=== PATIENT | female | born 1945 | race Caucasian/White ===

== ENCOUNTER 2016-08-09 23:21 | Emergency (ER) | payer MEDICARE ==
[~2016-08-09] VITALS: Ht 172.7 cm; Wt 119.3 kg
[~2016-08-09 23:21] MED LIST: AMIODARONE HCL200 MG PO; ASPIR-LOX325 MG PO; ASPIRIN325 M2 PO; CARTIVISC TABL1 EACH PO; COREG; COREG25 MG PO; COUMADIN3 M1 PO; COZAAR100 MG PO; Coumadin5 MG PO; DAYPRO600 M1 PO; DILTIAZEM240 M1 PO; FUROSEMIDE20 M1 PO; KLOR-CON 1010 ME1 PO; LANTUS100 U/ML SC; MACROBID100 M1 PO; NORVASC; NORVASC5 MG PO; ONGLYZA5 MG PO; OYSTER CALCIUM1 TA3 PO; Oscal,Oyster S500 MG PO; PRILOSEC20 MG PO; PROPAFENONE HC150 MG PO; VITAMIN D2400 UNIT PO; VITAMIN D50000 I1 PO; VITAMIN D50000 I3 PO; WARFARIN2 MG PO
[2016-08-09] MEDS ORDERED: CARVEDILOL25 MG PO (23:28)
[2016-08-09 23:52] LABS: BASO % 0.2 % (0.0-1.0); EOS # 0.2 10*3/uL (0.0-0.4); EOS % 1.7 % (1.0-4.0); HEMATOCRIT 37.8 % (37.0-47.0); HEMOGLOBIN 12.2 g/dl (12.0-16.0); LYMPH # 2.5 10*3/uL (1.3-4.4); LYMPH % 25.4 % (27.0-41.0); MEAN CELL VOLUME 77.9 fl (81.0-99.0); MEAN CORPUSCULAR HGB 25.2 pg (27.0-31.0); MEAN CORPUSCULAR HGB CONC 32.3 g/dl (33.0-37.0); MONO # 0.7 10*3/uL (0.1-1.0); MONO % 7.2 % (3.0-9.0); NEUT # 6.5 10*3/uL (2.3-7.9); NEUT % 65.2 % (47.0-73.0); PLATELET COUNT AUTOMATED 293 10*3/uL (130-400); RED BLOOD COUNT 4.85 10*6/uL (4.10-5.10); RED CELL DISTRI WIDTH 17.2 % (0-14.5)
[2016-08-10 00:05] LABS: INTERNATIONAL NORM RATIO 1.1 (2.0-3.5); PROTHROMBIN TIME 11.8 SECONDS (9.0-12.4)
[2016-08-10 00:11] LABS: ALBUMIN 2.9 gm/dl (3.1-4.5); ALKALINE PHOSPHATASE 102 U/L (45-117); BILIRUBIN, TOTAL 0.3 mg/dl (0.2-1.0); BUN 12 mg/dl (7-24); CARBON DIOXIDE 26 mmol/L (21-32); CHLORIDE 105 mmol/L (98-107); CPK 39 U/L (26-192); EST GLOM FILT AFRICAN AMERICAN > 60 ml/min; GLUCOSE 289 mg/dL (65-99); POTASSIUM 3.9 mmol/L (3.5-5.1); SGOT/AST 29 IU/L (3-35); SGPT/ALT 34 U/L (12-78); SODIUM 141 mmol/L (136-145); TOTAL PROTEIN 7.5 gm/dL (6.4-8.2)
[2016-08-10 00:12] LABS: CKMB 0.7 ng/ml (0.5-3.6)
[2016-08-10 00:14] LABS: TROPONIN I < 0.015 ng/ml (<0.045)
[2016-08-10 01:54] LABS: BILIRUBIN NEGATIVE (NEGATIVE); BLOOD NEGATIVE (NEGATIVE); CLARITY CLEAR (CLEAR); COLOR YELLOW (YELLOW); GLUCOSE 3+ (NEGATIVE); KETONE NEGATIVE (NEGATIVE); LEUKO ESTERASE TRACE (NEGATIVE); NITRITE NEGATIVE (NEGATIVE); PH 5.5 (5.0-9.0); PROTEIN NEGATIVE (NEGATIVE); SPECIFIC GRAVITY 1.015 (1.005-1.030)
[2016-08-10 02:00] VITALS: BP 151/86
[2016-08-10 02:07] LABS: BACTERIA 1+; EPITHELIAL CELLS 20-25; URINE REFLEX COMMENT YES (NO)
[2016-08-10] MEDS ORDERED: CLINDAMYCIN HC300 MG PO (04:12)
[2016-08-10] MEDS ORDERED: INDOMETHACIN50 MG PO (04:14)
[2016-08-10] MEDS ORDERED: BACTRIM DS 8001 TA1 PO (04:14)
[2016-08-10] MEDS ORDERED: HYDROCODONE BIT1 T11 PO (04:29)
== END 2016-08-10 04:44 | disposition home or self-care (01) ==
LOC: ED 23:21
PROVIDERS: Emergency Medicine
DX: R07.89 Other chest pain (principal); N39.0 Urinary tract infection, site not specified; Z79.4 Long term (current) use of insulin; E11.9 Type 2 diabetes mellitus without complications; I10 Essential (primary) hypertension; I48.91 Unspecified atrial fibrillation; Z90.49 Acquired absence of other specified parts of digestive tract; Z79.01 Long term (current) use of anticoagulants; Z79.82 Long term (current) use of aspirin; Z88.0 Allergy status to penicillin; Z88.8 Allergy status to other drugs, medicaments and biological substances

== ENCOUNTER 2016-09-06 11:18 | Emergency (ER) | payer MEDICARE ==
[~2016-09-06] VITALS: Wt 114.8 kg
[~2016-09-06 11:18] MED LIST changes: +BACTRIM DS 8001 TA1 PO; +CARVEDILOL25 MG PO; +CLINDAMYCIN HC300 MG PO; +HYDROCODONE BIT1 T11 PO; +INDOMETHACIN50 MG PO
[2016-09-06 11:48] LABS: BASO % 0.1 % (0.0-1.0); EOS # 0.2 10*3/uL (0.0-0.4); EOS % 2.6 % (1.0-4.0); HEMATOCRIT 37.6 % (37.0-47.0); HEMOGLOBIN 12.2 g/dl (12.0-16.0); LYMPH # 1.9 10*3/uL (1.3-4.4); LYMPH % 21.4 % (27.0-41.0); MEAN CELL VOLUME 79.3 fl (81.0-99.0); MEAN CORPUSCULAR HGB 25.7 pg (27.0-31.0); MEAN CORPUSCULAR HGB CONC 32.4 g/dl (33.0-37.0); MEAN PLATELET VOLUME 11.7 fl (9.6-12.3); MONO # 0.5 10*3/uL (0.1-1.0); MONO % 5.9 % (3.0-9.0); NEUT # 6.3 10*3/uL (2.3-7.9); NEUT % 69.7 % (47.0-73.0); PLATELET COUNT AUTOMATED 277 10*3/uL (130-400); RED BLOOD COUNT 4.74 10*6/uL (4.10-5.10); RED CELL DISTRI WIDTH 16.4 % (0-14.5)
[2016-09-06 12:05] LABS: PROTHROMBIN TIME 95.7 SECONDS (9.0-12.4)
[2016-09-06 12:07] LABS: ALKALINE PHOSPHATASE 125 U/L (45-117); BILIRUBIN, TOTAL 0.2 mg/dl (0.2-1.0); BUN 10 mg/dl (7-24); CARBON DIOXIDE 27 mmol/L (21-32); CHLORIDE 107 mmol/L (98-107); EST GLOM FILT AFRICAN AMERICAN > 60 ml/min; GLUCOSE 244 mg/dL (65-99); POTASSIUM 3.8 mmol/L (3.5-5.1); SGOT/AST 29 IU/L (3-35); SGPT/ALT 29 U/L (12-78); SODIUM 143 mmol/L (136-145); TOTAL PROTEIN 7.3 gm/dL (6.4-8.2)
[2016-09-06 12:12] LABS: INTERNATIONAL NORM RATIO 7.9 (2.0-3.5)
[2016-09-06 12:39] VITALS: BP 147/79
== END 2016-09-06 12:57 | disposition home or self-care (01) ==
LOC: ED 11:18
PROVIDERS: Nurse Practitioner Family
DX: R79.1 Abnormal coagulation profile (principal); Z79.01 Long term (current) use of anticoagulants; Z79.4 Long term (current) use of insulin; Z79.82 Long term (current) use of aspirin; Z88.0 Allergy status to penicillin; Z88.8 Allergy status to other drugs, medicaments and biological substances; Z79.899 Other long term (current) drug therapy

== ENCOUNTER 2016-09-07 22:27 | Emergency (ER) | payer MEDICARE ==
[~2016-09-07] VITALS: Ht 172.7 cm; Wt 114.8 kg
[2016-09-07 22:51] LABS: BASO % 0.1 % (0.0-1.0); EOS # 0.2 10*3/uL (0.0-0.4); EOS % 1.9 % (1.0-4.0); HEMATOCRIT 40.6 % (37.0-47.0); HEMOGLOBIN 12.7 g/dl (12.0-16.0); LYMPH # 2.4 10*3/uL (1.3-4.4); LYMPH % 24.4 % (27.0-41.0); MEAN CELL VOLUME 80.4 fl (81.0-99.0); MEAN CORPUSCULAR HGB 25.1 pg (27.0-31.0); MEAN CORPUSCULAR HGB CONC 31.3 g/dl (33.0-37.0); MEAN PLATELET VOLUME 11.3 fl (9.6-12.3); MONO # 0.7 10*3/uL (0.1-1.0); MONO % 6.7 % (3.0-9.0); NEUT # 6.5 10*3/uL (2.3-7.9); NEUT % 66.6 % (47.0-73.0); PLATELET COUNT AUTOMATED 311 10*3/uL (130-400); RED BLOOD COUNT 5.05 10*6/uL (4.10-5.10); RED CELL DISTRI WIDTH 16.5 % (0-14.5); WHITE BLOOD COUNT 9.8 10*3/uL (4.8-10.8)
[2016-09-07 23:11] LABS: INTERNATIONAL NORM RATIO 3.5 (2.0-3.5); PROTHROMBIN TIME 39.8 SECONDS (9.0-12.4)
[2016-09-08 00:37] VITALS: BP 154/96
== END 2016-09-08 00:48 | disposition home or self-care (01) ==
LOC: ED 22:27
PROVIDERS: Emergency Medicine Emergency Medical Services
DX: R04.0 Epistaxis (principal); D68.8 Other specified coagulation defects; I48.91 Unspecified atrial fibrillation; E11.9 Type 2 diabetes mellitus without complications; I10 Essential (primary) hypertension; Z88.0 Allergy status to penicillin; Z88.6 Allergy status to analgesic agent; Z88.8 Allergy status to other drugs, medicaments and biological substances; Z79.82 Long term (current) use of aspirin; Z79.899 Other long term (current) drug therapy

== ENCOUNTER → 2016-10-22 | Outpatient (CLI) | payer MEDICARE | END | disposition home or self-care (01) | LOC: ORTHO 00:43 | DX: M17.12 Unilateral primary osteoarthritis, left knee (principal) ==

== ENCOUNTER → 2016-11-02 | Outpatient (CLI) | payer MEDICARE | END | disposition home or self-care (01) | LOC: CT 10:27 | DX: Z01.818 Encounter for other preprocedural examination (principal); M25.562 Pain in left knee; G89.29 Other chronic pain; M17.12 Unilateral primary osteoarthritis, left knee; M16.12 Unilateral primary osteoarthritis, left hip; Z96.652 Presence of left artificial knee joint ==

== ENCOUNTER → 2016-12-15 | Outpatient (CLI) | payer MEDICARE ==
[~2016-12-15] MED LIST changes: +CARTIA XT240 MG PO; +XARE20MG PO
== END | disposition home or self-care (01) ==
LOC: CANPRECLI → ORTHO 04:09 → LAB 04:09 → ORTHO 12:00
DX: Z01.810 Encounter for preprocedural cardiovascular examination (principal); I10 Essential (primary) hypertension; E11.9 Type 2 diabetes mellitus without complications; I48.91 Unspecified atrial fibrillation

== ENCOUNTER → 2016-12-20 | Outpatient (CLI) | payer MEDICARE ==
[2016-12-20 12:35] LABS: BASO % 0.3 % (0.0-1.0); EOS # 0.1 10*3/uL (0.0-0.4); EOS % 1.4 % (1.0-4.0); HEMATOCRIT 39.7 % (37.0-47.0); HEMOGLOBIN 12.6 g/dl (12.0-16.0); LYMPH # 2.2 10*3/uL (1.3-4.4); LYMPH % 28.7 % (27.0-41.0); MEAN CELL VOLUME 83.2 fl (81.0-99.0); MEAN CORPUSCULAR HGB 26.4 pg (27.0-31.0); MEAN CORPUSCULAR HGB CONC 31.7 g/dl (33.0-37.0); MEAN PLATELET VOLUME 12.3 fl (9.6-12.3); MONO # 0.5 10*3/uL (0.1-1.0); MONO % 6.8 % (3.0-9.0); NEUT # 4.8 10*3/uL (2.3-7.9); NEUT % 62.5 % (47.0-73.0); PLATELET COUNT AUTOMATED 258 10*3/uL (130-400); RED BLOOD COUNT 4.77 10*6/uL (4.10-5.10); RED CELL DISTRI WIDTH 15.6 % (0-14.5); WHITE BLOOD COUNT 7.7 10*3/uL (4.8-10.8)
[2016-12-20 13:04] LABS: ALBUMIN 3.2 gm/dl (3.1-4.5); ALKALINE PHOSPHATASE 106 U/L (45-117); BILIRUBIN, TOTAL 0.5 mg/dl (0.2-1.0); BUN 9 mg/dl (7-24); CARBON DIOXIDE 32 mmol/L (21-32); CHLORIDE 103 mmol/L (98-107); EST GLOM FILT AFRICAN AMERICAN > 60 ml/min; GLUCOSE 231 mg/dL (65-99); SGOT/AST 35 IU/L (3-35); SGPT/ALT 32 U/L (12-78); SODIUM 139 mmol/L (136-145); TOTAL PROTEIN 7.4 gm/dL (6.4-8.2)
[2016-12-20 13:22] LABS: BILIRUBIN NEGATIVE (NEGATIVE); BLOOD 3+ (NEGATIVE); CLARITY CLOUDY (CLEAR); COLOR YELLOW (YELLOW); GLUCOSE 1+ (NEGATIVE); KETONE NEGATIVE (NEGATIVE); LEUKO ESTERASE 2+ (NEGATIVE); NITRITE NEGATIVE (NEGATIVE); PH 5.5 (5.0-9.0); PROTEIN TRACE (NEGATIVE); SPECIFIC GRAVITY >= 1.030 (1.005-1.030)
[2016-12-20 13:31] LABS: HEMOGLOBIN A1c 9.6 % (4.8-5.6)
[2016-12-20 14:20] LABS: BACTERIA 4+; EPITHELIAL CELLS 25-35; RBC 21-30 rbc/hpf (0-2); WBC 51-100 wbc/hpf (0-5); YEAST 2+
== END | disposition home or self-care (01) ==
LOC: LAB 10:55
PROVIDERS: Orthopaedic Surgery
DX: M17.12 Unilateral primary osteoarthritis, left knee (principal); E11.9 Type 2 diabetes mellitus without complications; Z96.652 Presence of left artificial knee joint

== ENCOUNTER → 2016-12-31 | Outpatient (CLI) | payer MEDICARE | END | disposition home or self-care (01) | LOC: LAB 10:07 | DX: R30.0 Dysuria (principal) ==

== ENCOUNTER 2017-01-15 09:20 | Inpatient (IN) | payer MEDICARE ==
[~2017-01-15] VITALS: Ht 170.2 cm; Wt 116.2 kg
--- NOTE | ~2017-01-15 | EKG ---
[place], [place] ELECTROCARDIOGRAM REPORT NAME: JEREMIE TRUJILLO UNIT #: [id number] ROOM: [facility] DOCTOR: CLAUDINE LEDEZMA,LUZMA BIRTHDATE: [birth year] DOS: 01/15/2017 TIME: 9:29 a.m. FINDINGS: 1. Sinus rhythm. 2. First degree AV block. 3. right bundle branch block. 4. Low voltage in the precordial leads. LUZMA CHOW MD CM:EKGRPT:ELECTROCARDIOGRAM REPORT [id number] LUZMA CHOW MD
--- NOTE | ~2017-01-15 | PR ---
[place], [place] PROGRESS NOTE NAME: JEREMIE TRUJILLO UNIT #: [id number] ROOM: 407 DOCTOR: LUZMA CHOW MD BIRTHDATE: [birth year] DOS: 01/17/2017 REASON FOR VISIT: Syncope and chest pain. SUBJECTIVE: The patient had some chest pain this morning. She had had "spell" where she felt like dizzy and about to pass out, but there is no syncope. She denies any palpitations, nausea, vomiting, no headache. No tingling, numbness or weakness. No heart palpitations. Still has some left knee pain. REVIEW OF SYSTEMS: Review of the 8 systems negative except as mentioned above. RHYTHM STRIPS: The patient in sinus rhythm with no significant luz or tachyarrhythmias. As for blood pressures, current blood pressure 152/62, pulse 69 and respiration 18. The patient had mildly positive orthostasis, systolic pressure dropped from 162 to 140. PHYSICAL EXAMINATION: GENERAL: Alert, comfort, in no acute distress. The patient is slightly short of breath. She just returned from the restroom. HEENT: Pupils are round and equal. No jaundice. NECK: Supple, no distended neck veins, no carotid bruit. CHEST: Symmetrical, nontender. LUNGS: Few scattered rhonchi, but good air entry bilaterally. HEART: Regular rhythm, no S3, no palpable thrills. ABDOMEN: Obese, nontender. Bowel sounds normal. EXTREMITIES: Showed 1+ edema, left leg, left knee was in dressing. SKIN: Warm and dry. No cyanosis, no clubbing. NEUROLOGIC: The patient is alert, oriented. No focal neurologic deficit. RECTAL: Deferred. GENITOURINARY: Deferred. IMPRESSION: 1. Recurrent "near syncopal attacks." 2. Chest pain, atypical, so far cardiac enzymes are unremarkable. EKG showed no significant ischemic changes. 3. Mild positive orthostasis. 4. Hypertension. 5. Paroxysmal atrial fibrillation. 6. History of pulmonary emboli. 7. Recent left knee surgery. 8. Obesity. RECOMMENDATIONS: 1. Continue current medications. I would discontinue her Cardizem due to her mildly positive orthostasis with symptoms of "dizziness." As far as she has no significant luz or tachyarrhythmia so far, continue to monitor her heart rates on telemetry. 2. Consider checking her carotid Doppler studies and also outpatient event monitor to assess for any luz or tachyarrhythmia. [place], [place] PROGRESS NOTE NAME: JEREMIE TRUJILLO UNIT #: [id number] ROOM: [facility] DOCTOR: CLAUDINE LEDEZMA,LUZMA BIRTHDATE: [birth year] 3. Continue to monitor heart rate and blood pressures. 4. There is no family at bedside at the time of my examination. LUZMA CHOW MD CM:PNAMADOR 1245 1401 LUZMA CHOW MD 01/18/17 0106 interface
--- NOTE | ~2017-01-15 | CON ---
[place], [place] REPORT OF CONSULTATION NAME: JEREMIE TRUJILLO UNIT #: [id number] ROOM: 407 DOCTOR: LUZMA CHOW MD BIRTHDATE: [birth year] DOS: 01/16/2017 REASON FOR CONSULT: Chest pain, syncope. CLINICAL HISTORY: This is a 71-year-old patient with history of hypertension, atrial fibrillation, pulmonary embolus, complaining of intermittent chest pains. Apparently, her main complaint is dizziness and passing out spells. She had a couple of episodes. One happened in the rehab. She had a knee surgery about 10 days ago and then in the rehab, she developed some diaphoresis and dizzy and she passed out, but no loss of consciousness. She denies any palpitations, chest pain, shortness of breath during the episode; however, after this episode, she noted to have some left-sided aching and tightness feeling at the chest with no radiation. This pain lasts a few minutes and relieves on its own. Especially, she denies any chest pain with activity during her physical therapy. No fever and chills, no cough, no hemoptysis, no nausea, vomiting. She has some mild shortness of breath, but no diarrhea. No tingling, numbness or weakness. No blurred vision or double vision, no headaches, no hematuria or dysuria. She had a stress test last year in 12/2015. REVIEW OF SYSTEMS: Review of the 8 systems negative except as mentioned above. PAST MEDICAL HISTORY: 1. Hypertension. 2. Atrial fibrillation. 3. Pulmonary emboli. 4. Obesity. 5. Depression. 6. Diabetes type 2. PAST SURGICAL HISTORY: History of hysterectomy, nephrectomy, cholecystectomy, cardioversion. SOCIAL HISTORY: The patient does not drink or smoke. No illicit drugs. FAMILY HISTORY: Mother from emphysema. Father at the age 70, brother at the age 68 from myocardial infarction. Other brother has diabetes and kidney issues. ALLERGIES: THE PATIENT IS ALLERGIC TO PENICILLIN, CODEINE, DEMEROL, AND PREDNISONE. HOME MEDICATIONS: Reviewed. PHYSICAL EXAMINATION: VITAL SIGNS: Blood pressure 150/64, pulse 69, respirations 14. GENERAL: Alert, comfortable, in no acute distress. HEENT: Pupils are round and equal. No jaundice. NECK: Supple, no distended neck veins, no carotid bruit. CHEST: Symmetrical, nontender. HEART: Regular rhythm, no S3, grade 1/6 systolic murmur. [place], [place] REPORT OF CONSULTATION NAME: JEREMIE TRUJILLO UNIT #: [id number] ROOM: [facility] DOCTOR: LUZMA CHOW MD BIRTHDATE: [birth year] ABDOMEN: Benign, nontender. Bowel sounds normal. EXTREMITIES: Showed no edema. Distal pulses are palpable. SKIN: Warm and dry. The patient had 1+ edema, left leg. Left knee was in dressing. NEUROLOGIC: Alert, oriented, no focal neurologic deficit. RECTAL: Deferred. GENITOURINARY: Deferred. Medications, allergies and EKG reviewed. EKG shows sinus rhythm with incomplete right bundle branch. Imaging studies and labs reviewed. IMPRESSION: 1. Syncopal episode, etiology unknown, possible vasovagal. 2. Atypical chest pain, myocardial infarction ruled out. EKG unremarkable, nonischemic stress test 01/2016. 3. Paroxysmal atrial fibrillation, in sinus rhythm. 4. Hypertension. 5. History of pulmonary emboli. 6. History of low blood pressure on midodrine. 7. Recent left knee surgery. RECOMMENDATIONS: 1. Chest pains are atypical. Does not appear to be Cardiac. Continue to watch her orthostatic blood pressures, so far negative. 2. Continue monitoring for any luz or tachyarrhythmias. Consider workup for pulmonary emboli if her symptoms are persistent. 3. No further cardiac testing at this time. I would recommend outpatient cardiac event to monitor for any luz or tachyarrhythmia. Continue current cardiac medications including her Xarelto and amiodarone. 4. Diltiazem for her heart rate and blood pressures. 5. The above treatment discussed with the patient and her family member who is at bedside. LUZMA CHOW MD CM:CONSTR:REPORT OF CONSULTATION 1302 01/16/17 8277 interface
--- NOTE | ~2017-01-15 | EKG ---
[place], [place] ELECTROCARDIOGRAM REPORT NAME: JEREMIE TRUJILLO UNIT #: [id number] ROOM: 407 DOCTOR: CLAUDINE LEDEZMA,LUZMA BIRTHDATE: [birth year] DOS: 01/16/2017 TIME: 8:01 a.m. INTERPRETATION: 1. Sinus rhythm. 2. First degree AV block. 3. Left axis deviation. 4. Incomplete right bundle branch block. 5. Possible old anterior infarction. LUZMA CHOW MD CM:EKGRPT:ELECTROCARDIOGRAM REPORT [id number] 1518 LUZMA CHOW MD
--- NOTE | ~2017-01-15 | EKG ---
[place], [place] ELECTROCARDIOGRAM REPORT NAME: JEREMIE TRUJILLO UNIT #: [id number] ROOM: 407 DOCTOR: CLAUDINE LEDEZMA,LUZMA BIRTHDATE: [birth year] DOS: 01/17/2017 TIME: 9:33 a.m. IMPRESSION: 1. Sinus rhythm. 2. First degree AV block. 3. Poor R-wave progression. 4. Nonspecific ST-T changes. LUZMA CHOW MD CM:EKGRPT:ELECTROCARDIOGRAM REPORT [id number] 1254 LUZMA CHOW MD
[2017-01-15 09:20] VITALS: BP 158/56
[~2017-01-15 09:20] MED LIST changes: +LANTUS SOL100 UNIT/1 SC; +Percocet 325 MG1 TAB PO; +TRADJENTA5 M1 PO; +VITAMIN D-32000 UNI1 PO
[2017-01-15 09:33] LABS: BASO % 0.1 % (0.0-1.0); EOS # 0.2 10*3/uL (0.0-0.4); EOS % 1.9 % (1.0-4.0); HEMATOCRIT 30.6 % (37.0-47.0); HEMOGLOBIN 9.5 g/dl (12.0-16.0); LYMPH # 1.6 10*3/uL (1.3-4.4); LYMPH % 19.3 % (27.0-41.0); MEAN CELL VOLUME 84.3 fl (81.0-99.0); MEAN CORPUSCULAR HGB 26.2 pg (27.0-31.0); MEAN PLATELET VOLUME 10.4 fl (9.6-12.3); MONO # 0.6 10*3/uL (0.1-1.0); MONO % 6.9 % (3.0-9.0); NEUT # 5.9 10*3/uL (2.3-7.9); NEUT % 71.3 % (47.0-73.0); PLATELET COUNT AUTOMATED 399 10*3/uL (130-400); RED BLOOD COUNT 3.63 10*6/uL (4.10-5.10); RED CELL DISTRI WIDTH 16.4 % (0-14.5); WHITE BLOOD COUNT 8.3 10*3/uL (4.8-10.8)
[2017-01-15 09:42] LABS: ACT PARTIAL THROMBO TIME 41.1 SECONDS (20.8-31.5); INTERNATIONAL NORM RATIO 1.5 (2.0-3.5)
[2017-01-15 09:50] LABS: ALBUMIN 2.5 gm/dl (3.1-4.5); ALKALINE PHOSPHATASE 95 U/L (45-117); BUN 10 mg/dl (7-24); CHLORIDE 103 mmol/L (98-107); CREATININE 0.99 mg/dL (0.55-1.02); MAGNESIUM 1.9 mg/dL (1.5-2.1); POTASSIUM 4.2 mmol/L (3.5-5.1); SGOT/AST 29 IU/L (3-35); SGPT/ALT 22 U/L (12-78); SODIUM 142 mmol/L (136-145); TOTAL PROTEIN 7.2 gm/dL (6.4-8.2)
[2017-01-15 09:51] LABS: TROPONIN I < 0.015 ng/ml (<0.045)
[2017-01-15 10:00] VITALS: BP 147/53
[2017-01-15 10:30] VITALS: BP 143/66
[2017-01-15 11:00] VITALS: BP 182/61
[2017-01-15] MEDS ORDERED: MIDODRINE HCL5 M1 PO (11:52)
[2017-01-15] MEDS ORDERED: PAXIL20 M1 PO (11:55)
[2017-01-15] MEDS ORDERED: ZOFRAN4 MG PO (12:09)
[2017-01-15] MEDS ORDERED: THERA-D4000 UNIT PO (12:10)
[2017-01-15 16:00] VITALS: BP 142/60
[2017-01-15 20:00] VITALS: BP 150/64
[2017-01-16] VITALS: BP 136/57
[2017-01-16 06:01] LABS: BASO % 0.1 % (0.0-1.0); EOS # 0.2 10*3/uL (0.0-0.4); HEMATOCRIT 29.5 % (37.0-47.0); HEMOGLOBIN 9.1 g/dl (12.0-16.0); LYMPH # 1.8 10*3/uL (1.3-4.4); LYMPH % 22.8 % (27.0-41.0); MEAN CELL VOLUME 85.8 fl (81.0-99.0); MEAN CORPUSCULAR HGB 26.5 pg (27.0-31.0); MEAN CORPUSCULAR HGB CONC 30.8 g/dl (33.0-37.0); MEAN PLATELET VOLUME 10.7 fl (9.6-12.3); MONO # 0.6 10*3/uL (0.1-1.0); MONO % 7.7 % (3.0-9.0); NEUT # 5.2 10*3/uL (2.3-7.9); NEUT % 66.6 % (47.0-73.0); PLATELET COUNT AUTOMATED 378 10*3/uL (130-400); RED BLOOD COUNT 3.44 10*6/uL (4.10-5.10); RED CELL DISTRI WIDTH 16.5 % (0-14.5); WHITE BLOOD COUNT 7.9 10*3/uL (4.8-10.8)
[2017-01-16 06:25] LABS: BUN 9 mg/dl (7-24); CHLORIDE 103 mmol/L (98-107); MAGNESIUM 1.9 mg/dL (1.5-2.1); PHOSPHOROUS 3.1 mg/dL (2.5-4.9); POTASSIUM 3.9 mmol/L (3.5-5.1); SODIUM 140 mmol/L (136-145)
[2017-01-16 08:00] VITALS: BP 150/64
[2017-01-16 11:57] LABS: BASO % 0.1 % (0.0-1.0); EOS # 0.2 10*3/uL (0.0-0.4); EOS % 1.9 % (1.0-4.0); HEMATOCRIT 30.7 % (37.0-47.0); HEMOGLOBIN 9.2 g/dl (12.0-16.0); LYMPH # 1.7 10*3/uL (1.3-4.4); LYMPH % 21.6 % (27.0-41.0); MEAN CELL VOLUME 85.8 fl (81.0-99.0); MEAN CORPUSCULAR HGB 25.7 pg (27.0-31.0); MEAN PLATELET VOLUME 10.1 fl (9.6-12.3); MONO # 0.5 10*3/uL (0.1-1.0); MONO % 6.6 % (3.0-9.0); NEUT # 5.3 10*3/uL (2.3-7.9); NEUT % 68.9 % (47.0-73.0); PLATELET COUNT AUTOMATED 405 10*3/uL (130-400); RED BLOOD COUNT 3.58 10*6/uL (4.10-5.10); RED CELL DISTRI WIDTH 16.5 % (0-14.5); WHITE BLOOD COUNT 7.7 10*3/uL (4.8-10.8)
[2017-01-16 12:00] VITALS: BP 148/61
[2017-01-16 12:13] LABS: ALBUMIN 2.6 gm/dl (3.1-4.5); ALKALINE PHOSPHATASE 92 U/L (45-117); BUN 9 mg/dl (7-24); CHLORIDE 102 mmol/L (98-107); CREATININE 0.95 mg/dL (0.55-1.02); SGOT/AST 27 IU/L (3-35); SGPT/ALT 21 U/L (12-78); SODIUM 140 mmol/L (136-145)
[2017-01-16 16:00] VITALS: BP 147/61
[2017-01-16 20:00] VITALS: BP 159/72
[2017-01-17] VITALS: BP 136/68
[2017-01-17 08:00] VITALS: BP 152/62
[2017-01-17 10:06] LABS: CPK 23 U/L (26-192)
[2017-01-17 10:10] LABS: CKMB < 0.5 ng/ml (0.5-3.6); TROPONIN I < 0.015 ng/ml (<0.045)
[2017-01-17 12:00] VITALS: BP 130/75
[2017-01-17 12:40] LABS: CPK 25 U/L (26-192)
[2017-01-17 12:45] LABS: CKMB < 0.5 ng/ml (0.5-3.6); TROPONIN I < 0.015 ng/ml (<0.045)
[2017-01-17 15:48] LABS: CPK 26 U/L (26-192)
[2017-01-17 15:57] LABS: CKMB < 0.5 ng/ml (0.5-3.6)
[2017-01-17 15:58] LABS: TROPONIN I < 0.015 ng/ml (<0.045)
[2017-01-17 16:00] VITALS: BP 157/71
[2017-01-17 20:00] VITALS: BP 159/82
[2017-01-18] VITALS: BP 156/79
[2017-01-18 08:00] VITALS: BP 152/60
[2017-01-18 12:00] VITALS: BP 125/59; BP 144/68
[2017-01-18 16:00] VITALS: BP 130/55
[2017-01-18] MEDS ORDERED: Percocet 325 MG1 TAB PO (16:40)
== END 2017-01-18 17:00 | disposition home or self-care (01) | DRG 312 ==
LOC: ED 09:20 → EDHOLD 10:02 → 4E 10:02
PROVIDERS: Emergency Medicine; Internal Medicine; ADMIT Internal Medicine
DX: R55 Syncope and collapse (principal); E43 Unspecified severe protein-calorie malnutrition; E11.65 Type 2 diabetes mellitus with hyperglycemia; D64.9 Anemia, unspecified; I48.0 Paroxysmal atrial fibrillation; Z68.41 Body mass index [BMI] 40.0-44.9, adult; R07.89 Other chest pain; F32.9 Major depressive disorder, single episode, unspecified; I10 Essential (primary) hypertension; E66.01 Morbid (severe) obesity due to excess calories; Z96.652 Presence of left artificial knee joint; I44.0 Atrioventricular block, first degree; Z88.0 Allergy status to penicillin; Z88.5 Allergy status to narcotic agent; Z88.8 Allergy status to other drugs, medicaments and biological substances; Z79.4 Long term (current) use of insulin; Z79.899 Other long term (current) drug therapy; Z86.711 Personal history of pulmonary embolism; Z90.49 Acquired absence of other specified parts of digestive tract; Z90.5 Acquired absence of kidney; Z90.710 Acquired absence of both cervix and uterus; Z83.6 Family history of other diseases of the respiratory system; Z82.49 Family history of ischemic heart disease and other diseases of the circulatory system; Z84.1 Family history of disorders of kidney and ureter; Z83.3 Family history of diabetes mellitus; Z82.3 Family history of stroke; Z82.5 Family history of asthma and other chronic lower respiratory diseases; Z84.89 Family history of other specified conditions

== ENCOUNTER → 2017-01-27 | Outpatient (CLI) | payer MEDICARE ==
[~2017-01-27] MED LIST changes: +MIDODRINE HCL5 M1 PO; +PAXIL20 M1 PO; +THERA-D4000 UNIT PO; +ZOFRAN4 MG PO
== END | disposition home or self-care (01) ==
LOC: ORTHO 00:45
DX: M25.462 Effusion, left knee (principal); Z96.652 Presence of left artificial knee joint

== ENCOUNTER → 2017-02-14 | Outpatient (CLI) | payer MEDICARE | END | disposition home or self-care (01) | LOC: US 15:30 | DX: M79.662 Pain in left lower leg (principal) ==

== ENCOUNTER → 2017-03-03 | Outpatient (CLI) | payer MEDICARE ==
[~2017-03-03] MED LIST changes: +FLORASTOR250 MG PO; +UROCIT-K10 MEQ PO; +VOLTAREN100 GM T
== END | disposition home or self-care (01) ==
LOC: CARD 03:17
DX: I48.91 Unspecified atrial fibrillation (principal)

== ENCOUNTER → 2017-03-28 | Outpatient (CLI) | payer MEDICARE | END | disposition home or self-care (01) | LOC: ORTHO 03:49 | DX: M25.462 Effusion, left knee (principal); Z96.652 Presence of left artificial knee joint ==

== ENCOUNTER 2017-04-19 11:31 | Inpatient (IN) | payer MEDICARE ==
[~2017-04-19] VITALS: Ht 172.7 cm; Wt 115.1 kg
[2017-04-19] VITALS (9 sets, daily range): BP systolic 129–192; BP diastolic 70–84
[2017-04-19 12:11] LABS: BILIRUBIN NEGATIVE (NEGATIVE); BLOOD 3+ (NEGATIVE); CLARITY CLOUDY (CLEAR); COLOR YELLOW (YELLOW); GLUCOSE NEGATIVE (NEGATIVE); KETONE NEGATIVE (NEGATIVE); NITRITE NEGATIVE (NEGATIVE)
[2017-04-19 12:13] LABS: BASO % 0.1 % (0.0-1.0); EOS # 0.1 10*3/uL (0.0-0.4); HEMATOCRIT 36.3 % (37.0-47.0); HEMOGLOBIN 11.3 g/dl (12.0-16.0); LYMPH # 1.5 10*3/uL (1.3-4.4); LYMPH % 18.5 % (27.0-41.0); MEAN CELL VOLUME 78.1 fl (81.0-99.0); MEAN CORPUSCULAR HGB 24.3 pg (27.0-31.0); MEAN CORPUSCULAR HGB CONC 31.1 g/dl (33.0-37.0); MEAN PLATELET VOLUME 10.7 fl (9.6-12.3); MONO # 0.5 10*3/uL (0.1-1.0); MONO % 6.3 % (3.0-9.0); NEUT # 6.1 10*3/uL (2.3-7.9); NEUT % 73.7 % (47.0-73.0); PLATELET COUNT AUTOMATED 316 10*3/uL (130-400); RED BLOOD COUNT 4.65 10*6/uL (4.10-5.10); RED CELL DISTRI WIDTH 16.1 % (0-14.5); WHITE BLOOD COUNT 8.2 10*3/uL (4.8-10.8)
[2017-04-19 12:18] LABS: LEUKO ESTERASE 1+ (NEGATIVE)
[2017-04-19 12:21] LABS: BACTERIA 2+; RBC 41-50 rbc/hpf (0-2); YEAST 1+
[2017-04-19 12:30] LABS: ALBUMIN 3.2 gm/dl (3.1-4.5); ALKALINE PHOSPHATASE 105 U/L (45-117); BUN 15 mg/dl (7-24); CHLORIDE 105 mmol/L (98-107); SGOT/AST 17 IU/L (3-35); SGPT/ALT 18 U/L (12-78); SODIUM 141 mmol/L (136-145); TOTAL PROTEIN 8.2 gm/dL (6.4-8.2)
--- NOTE | 2017-04-19 12:56 | NUR ---
PATIENT IS ALERT AND ORIENTED X3, PATIENT IS RESTING IN BED, CALL LIGHT IN REACH OF THE PATIET, PATIENT GIVEN A BLANKET DUE TO BEING COLD, CONTINUING TO MONITOR THE PATIENT. ROBB ZAYAS
--- NOTE | 2017-04-19 14:28 | NUR ---
PATIENT TAKEN TO ROOM 504-2, PLACED IN BED AND ON THE MONITOR AND CARE TRANSFERRED TO ROBB HEARN. ROBB ZAYAS
--- NOTE | 2017-04-19 14:30 | NUR ---
A 71YO FEMALE, admitted to , under the services of YOUSIF Seals DO with a diagnosis of CELLULITIS/OPEN WOUND OF LEFT GREAT TOE. Chief complaint is REDNESS OF LEFT GREAT TOE WITH OPEN AREA/BLISTER OPENED WITH INJURY WHEN PATIENT BUMPED HER FOOT. Patient arrived via STRETCHER from ER. Monitor applied. Initial assessment completed. Vital signs taken and recorded. YOUSIF SEALS DO notified of admission to the unit. Orders received. See assessment for past medical history, medications and allergies. Patient and/or family oriented to unit. [facility] visitation policy reviewed. Clothing/patient valuable form completed. JAMARCUS CONTE
[2017-04-19] MEDS ORDERED: KLOR-CON 1010 ME1 PO (14:56)
[2017-04-19] MEDS ORDERED: CALCIUM 500 +1 EACH PO (14:59)
[2017-04-19] MEDS ORDERED: HYDR25T PO (15:01)
[2017-04-19] MEDS ORDERED: FLORASTOR250 MG PO (15:03)
[2017-04-19] MEDS ORDERED: SIMVASTATIN20 MG PO (15:05)
[2017-04-19] MEDS ORDERED: VITAMIN D-32000 UNI1 PO (15:06)
--- NOTE | 2017-04-19 15:08 | NUR ---
MED REC UPDATED/CORRECTED USING LIST PROVIDED BY THE PATIENT FROM HER PRIMARY CARE PHYSICIAN'S OFFICE PRINTED FOR HER EARLIER TODAY BY THE OFFICE STAFF. LIST IS BACK IN CARE OF THE PATIENT.
--- NOTE | 2017-04-19 17:45 | NUR ---
CALL TO DR DUFFY FOR CONSULT
--- NOTE | 2017-04-19 19:48 | NUR ---
PATIENT RESTING IN ROOM FAMILY WITH HER AT BEDSIDE. CALL LIGHT IN REACH SEE SHIFT ASSESSMENT
--- NOTE | 2017-04-19 23:43 | NUR ---
CALLED DR HUNTER MADE HIMMAWARE PATIENTS MEDICATIONS WERE NOT CONTINUED AND PATIENT IS A DIABETIC WITH NO BLOOD SUGARS ORDERED. DR HUNTER WILL CONTINUE PATIENTS HOME MEDICATIONS AND ORDER STATE MENTAL HEALTH FACILITYS BLOOD SUGARS.
[2017-04-20] VITALS: BP 142/62
[2017-04-20 06:46] LABS: BASO % 0.3 % (0.0-1.0); EOS # 0.1 10*3/uL (0.0-0.4); EOS % 1.8 % (1.0-4.0); HEMATOCRIT 32.2 % (37.0-47.0); HEMOGLOBIN 9.9 g/dl (12.0-16.0); LYMPH # 1.8 10*3/uL (1.3-4.4); LYMPH % 23.5 % (27.0-41.0); MEAN CELL VOLUME 79.1 fl (81.0-99.0); MEAN CORPUSCULAR HGB 24.3 pg (27.0-31.0); MEAN CORPUSCULAR HGB CONC 30.7 g/dl (33.0-37.0); MEAN PLATELET VOLUME 11.5 fl (9.6-12.3); MONO # 0.7 10*3/uL (0.1-1.0); MONO % 9.2 % (3.0-9.0); NEUT % 64.9 % (47.0-73.0); PLATELET COUNT AUTOMATED 272 10*3/uL (130-400); RED BLOOD COUNT 4.07 10*6/uL (4.10-5.10); RED CELL DISTRI WIDTH 16.2 % (0-14.5); WHITE BLOOD COUNT 7.6 10*3/uL (4.8-10.8)
[2017-04-20 07:11] LABS: ALBUMIN 2.8 gm/dl (3.1-4.5); BUN 13 mg/dl (7-24); CHLORIDE 107 mmol/L (98-107); POTASSIUM 3.6 mmol/L (3.5-5.1); SODIUM 142 mmol/L (136-145); TOTAL PROTEIN 7.1 gm/dL (6.4-8.2)
[2017-04-20 07:12] LABS: ACT PARTIAL THROMBO TIME 30.7 SECONDS (20.8-31.5); INTERNATIONAL NORM RATIO 1.1 (2.0-3.5)
[2017-04-20 07:18] LABS: ALKALINE PHOSPHATASE 87 U/L (45-117); CHOLESTEROL 117 mg/dL (<200); CREATININE 0.89 mg/dL (0.55-1.02); HDL CHOLESTEROL 49 mg/dl (40-60); LDL CHOLESTEROL 56 mg/dL (9-159); PHOSPHOROUS 3.1 mg/dL (2.5-4.9); SGOT/AST 14 IU/L (3-35); SGPT/ALT 15 U/L (12-78); TRIGLYCERIDES 58 mg/dl (<150); VLDL CHOLESTEROL 12 mg/dL (6-40)
[2017-04-20 08:00] VITALS: BP 160/76
--- NOTE | 2017-04-20 08:30 | NUR ---
Marketing Summer Intern in to talk to patient. Patient states lives at HOME ALONE with . There are 2 steps in the home. Physician: DR TO Pharmacy[facility] [place] Home health services: NONE Patient's level of ADLs: MINIMAL ASSIST Patient has working utilities: YES DME: WALKER Follow-up physician's appointment after d/c: WILL BE MADE PRIOR O DC Does patient want to access PORTAL?: Discharge plan HOME. CINDY FRIED
[2017-04-20 08:33] LABS: VITAMIN D, 25-HYDROXY 38.1 ng/mL (30-100)
--- NOTE | 2017-04-20 09:46 | NUR ---
JEREMIE TRUJILLO [id number] Please refer to the physician's history and physical for past medical history, comorbid conditions, and allergies. Diagnosis: CELLULITIS,OPEN WOUND OF LEFT GREAT TOE Selvin Score: 20,LOW OR NO RISK WOUND DESCRIPTIONS: Location of the wound: left great toe Type of wound: traumatic Thickness: Full Size: 2.4cm x 4.0cm x >0.1cm Tunneling: none Undermining: none Sinus Tract: none Presence of Exudate: Purulent Amount: Light Color: Red Odor: None Periwound Skin Appearance: Normal Wound edges: approximated Pain (associated with wound): none at time of assessment How does patient state this happened? pt stated she hit it on something about 3 weeks ago and has neuropathy. Surface the patient is resting on: Isoflex SKIN PREVENTION RECOMMENDATION: 1. Pressure redistribution support surface as appropriate 2. Elevate heels 3. Remove boots/TEDS every shift and reapply 4. Head of bed 30 degrees as tolerated 5. Assess nutrition and hydration 6. Manage moisture 7. Avoid the use of containment devices while in bed 8. Use absorptive products on surfaces limit layers of linens on bed 9. Turn and reposition every 1-2 hours in bed and every 1 hour in chair as tolerated 10. Weight shifts every 15 minutes while up in chair 11. Offloading with pillows or device to keep heels elevated off bed 12. Monitor skin at least every shift 13. Inspect under medical devices twice a day WOUND TREATMENT RECOMMENDATIONS: Consult podiatry for wound care recommendation.
[2017-04-20 12:00] VITALS: BP 169/61
[2017-04-20] MEDS ORDERED: DOXYCYCLINE100 M3 PO (12:48)
[2017-04-20 16:00] VITALS: BP 159/62
--- NOTE | 2017-04-20 16:00 | NUR ---
PT REFUSED DC PHOTOS
--- NOTE | 2017-04-20 16:40 | NUR ---
Discharge instructions reviewed with patient/family. Patient receptive and verbalizes understanding. Follow-up care arranged. Written instructions given to patient/family. SIOMARA DOUGLASS
== END 2017-04-20 16:40 | disposition home or self-care (01) | DRG 603 ==
LOC: ED 11:31 → 5E 13:48 → EDHOLD 13:48 → 5E 13:55
PROVIDERS: Internal Medicine; Nurse Practitioner Family; ADMIT Student in an Organized Health Care Education/Training Program
DX: L03.116 Cellulitis of left lower limb (principal); E11.65 Type 2 diabetes mellitus with hyperglycemia; E11.621 Type 2 diabetes mellitus with foot ulcer; E44.1 Mild protein-calorie malnutrition; S91.102A Unspecified open wound of left great toe without damage to nail, initial encounter; D64.9 Anemia, unspecified; N39.0 Urinary tract infection, site not specified; I48.0 Paroxysmal atrial fibrillation; I10 Essential (primary) hypertension; I16.0 Hypertensive urgency; E66.9 Obesity, unspecified; L97.529 Non-pressure chronic ulcer of other part of left foot with unspecified severity; F32.9 Major depressive disorder, single episode, unspecified; Z86.711 Personal history of pulmonary embolism; Z90.710 Acquired absence of both cervix and uterus; Z90.49 Acquired absence of other specified parts of digestive tract; Z90.5 Acquired absence of kidney; Z82.49 Family history of ischemic heart disease and other diseases of the circulatory system; Z83.3 Family history of diabetes mellitus; Z88.0 Allergy status to penicillin; Z88.6 Allergy status to analgesic agent; Z88.8 Allergy status to other drugs, medicaments and biological substances; Z79.899 Other long term (current) drug therapy; Y93.89 Activity, other specified; Y99.8 Other external cause status; W18.39XA Other fall on same level, initial encounter; Y92.091 Bathroom in other non-institutional residence as the place of occurrence of the external cause; Z68.38 Body mass index [BMI] 38.0-38.9, adult

== ENCOUNTER → 2017-05-25 | Outpatient (CLI) | payer MEDICARE ==
[~2017-05-25] MED LIST changes: +CALCIUM 500 +1 EACH PO; +DOXYCYCLINE100 M3 PO; +HYDR25T PO; +SIMVASTATIN20 MG PO
== END | disposition home or self-care (01) ==
LOC: WOUNDCARE 02:17
DX: E11.621 Type 2 diabetes mellitus with foot ulcer (principal); L97.512 Non-pressure chronic ulcer of other part of right foot with fat layer exposed; L97.521 Non-pressure chronic ulcer of other part of left foot limited to breakdown of skin; I10 Essential (primary) hypertension; I48.91 Unspecified atrial fibrillation; E66.01 Morbid (severe) obesity due to excess calories; Z68.38 Body mass index [BMI] 38.0-38.9, adult; Z90.710 Acquired absence of both cervix and uterus

== ENCOUNTER → 2017-06-08 | Outpatient (CLI) | payer MEDICARE | END | disposition home or self-care (01) | LOC: WOUNDCARE 03:07 | DX: E11.621 Type 2 diabetes mellitus with foot ulcer (principal); L97.522 Non-pressure chronic ulcer of other part of left foot with fat layer exposed; I10 Essential (primary) hypertension; I48.91 Unspecified atrial fibrillation; E66.01 Morbid (severe) obesity due to excess calories; Z68.38 Body mass index [BMI] 38.0-38.9, adult; Z90.710 Acquired absence of both cervix and uterus ==

== ENCOUNTER → 2017-06-14 | Outpatient (CLI) | payer MEDICARE | END | disposition home or self-care (01) | LOC: RAD 11:54 | DX: M17.12 Unilateral primary osteoarthritis, left knee (principal); W10.8XXA Fall (on) (from) other stairs and steps, initial encounter; Z96.653 Presence of artificial knee joint, bilateral; X58.XXXA Exposure to other specified factors, initial encounter; Y93.89 Activity, other specified; Y92.89 Other specified places as the place of occurrence of the external cause; Y99.9 Unspecified external cause status ==

== ENCOUNTER → 2017-06-29 | Outpatient (CLI) | payer MEDICARE, MEDICAID | END | disposition home or self-care (01) | LOC: WOUNDCARE 01:02 | DX: E11.621 Type 2 diabetes mellitus with foot ulcer (principal); L97.522 Non-pressure chronic ulcer of other part of left foot with fat layer exposed; I10 Essential (primary) hypertension; I48.91 Unspecified atrial fibrillation; E66.01 Morbid (severe) obesity due to excess calories; Z90.710 Acquired absence of both cervix and uterus ==

== ENCOUNTER → 2017-09-05 | Outpatient (CLI) | payer MEDICARE, MEDICAID | END | disposition home or self-care (01) | LOC: ORTHO 00:22 | DX: Z96.652 Presence of left artificial knee joint (principal) ==

== ENCOUNTER → 2017-09-06 | Outpatient (CLI) | payer MEDICARE, MEDICAID ==
[2017-09-06 18:08] LABS: BASO % 0.2 % (0.0-1.0); EOS # 0.2 10*3/uL (0.0-0.4); EOS % 2.2 % (1.0-4.0); HEMATOCRIT 40.3 % (37.0-47.0); HEMOGLOBIN 12.7 g/dl (12.0-16.0); LYMPH # 1.7 10*3/uL (1.3-4.4); LYMPH % 18.4 % (27.0-41.0); MEAN CELL VOLUME 84.5 fl (81.0-99.0); MEAN CORPUSCULAR HGB 26.6 pg (27.0-31.0); MEAN CORPUSCULAR HGB CONC 31.5 g/dl (33.0-37.0); MEAN PLATELET VOLUME 11.4 fl (9.6-12.3); MONO # 0.6 10*3/uL (0.1-1.0); MONO % 6.6 % (3.0-9.0); NEUT # 6.7 10*3/uL (2.3-7.9); NEUT % 72.3 % (47.0-73.0); PLATELET COUNT AUTOMATED 259 10*3/uL (130-400); RED BLOOD COUNT 4.77 10*6/uL (4.10-5.10); RED CELL DISTRI WIDTH 15.5 % (0-14.5); WHITE BLOOD COUNT 9.2 10*3/uL (4.8-10.8)
[2017-09-06 18:32] LABS: ALBUMIN 3.1 gm/dl (3.1-4.5); ALKALINE PHOSPHATASE 108 U/L (45-117); BUN 13 mg/dl (7-24); CHLORIDE 103 mmol/L (98-107); CREATININE 1.08 mg/dL (0.55-1.02); POTASSIUM 3.9 mmol/L (3.5-5.1); SGOT/AST 19 IU/L (3-35); SGPT/ALT 26 U/L (12-78); SODIUM 139 mmol/L (136-145); TOTAL PROTEIN 7.7 gm/dL (6.4-8.2)
== END | disposition home or self-care (01) ==
LOC: LAB 17:22
PROVIDERS: Nurse Practitioner Primary Care
DX: K63.9 Disease of intestine, unspecified (principal); I10 Essential (primary) hypertension; E11.9 Type 2 diabetes mellitus without complications; Z90.49 Acquired absence of other specified parts of digestive tract

== ENCOUNTER 2017-09-26 12:03 | Inpatient (IN) | payer MEDICARE, MEDICAID ==
[~2017-09-26] VITALS: Ht 172.7 cm; Wt 126.1 kg
[2017-09-26 12:08] VITALS: BP 148/85
[2017-09-26] MEDS ORDERED: FERROUS SULFAT325 MG PO (12:22)
[2017-09-26 12:36] LABS: BASO % 0.1 % (0.0-1.0); EOS # 0.1 10*3/uL (0.0-0.4); EOS % 1.4 % (1.0-4.0); HEMATOCRIT 37.3 % (37.0-47.0); HEMOGLOBIN 11.9 g/dl (12.0-16.0); LYMPH # 1.4 10*3/uL (1.3-4.4); LYMPH % 17.5 % (27.0-41.0); MEAN CORPUSCULAR HGB 27.1 pg (27.0-31.0); MEAN CORPUSCULAR HGB CONC 31.9 g/dl (33.0-37.0); MEAN PLATELET VOLUME 10.9 fl (9.6-12.3); MONO # 0.5 10*3/uL (0.1-1.0); MONO % 6.6 % (3.0-9.0); NEUT # 5.8 10*3/uL (2.3-7.9); PLATELET COUNT AUTOMATED 232 10*3/uL (130-400); RED BLOOD COUNT 4.39 10*6/uL (4.10-5.10); WHITE BLOOD COUNT 7.8 10*3/uL (4.8-10.8)
[2017-09-26 12:47] LABS: ACT PARTIAL THROMBO TIME 30.4 SECONDS (20.8-31.5); INTERNATIONAL NORM RATIO 1.1 (2.0-3.5)
[2017-09-26 12:54] LABS: ALKALINE PHOSPHATASE 103 U/L (45-117); BUN 16 mg/dl (7-24); CHLORIDE 101 mmol/L (98-107); CREATININE 1.07 mg/dL (0.55-1.02); POTASSIUM 4.4 mmol/L (3.5-5.1); SGOT/AST 15 IU/L (3-35); SGPT/ALT 24 U/L (12-78); SODIUM 137 mmol/L (136-145)
[2017-09-26 12:57] LABS: TROPONIN I < 0.015 ng/ml (<0.045)
[2017-09-26 13:42] VITALS: BP 173/73
[2017-09-26] MEDS ORDERED: NORVASC5 MG PO (14:02)
[2017-09-26] MEDS ORDERED: POTASSIUM CITR10 MEQ PO (14:03)
[2017-09-26] MEDS ORDERED: OYSTER SHELL C1 EAC1 PO (14:07)
[2017-09-26 14:40] VITALS: BP 153/71
[2017-09-26 16:00] VITALS: BP 151/76
[2017-09-26 20:15] VITALS: BP 172/74
[2017-09-27 00:31] VITALS: BP 156/95
[2017-09-27 07:01] LABS: BASO % 0.1 % (0.0-1.0); EOS # 0.2 10*3/uL (0.0-0.4); EOS % 2.1 % (1.0-4.0); HEMATOCRIT 38.4 % (37.0-47.0); HEMOGLOBIN 11.9 g/dl (12.0-16.0); LYMPH # 1.5 10*3/uL (1.3-4.4); LYMPH % 20.3 % (27.0-41.0); MEAN CELL VOLUME 85.9 fl (81.0-99.0); MEAN CORPUSCULAR HGB 26.6 pg (27.0-31.0); MEAN PLATELET VOLUME 11.6 fl (9.6-12.3); MONO # 0.6 10*3/uL (0.1-1.0); MONO % 8.8 % (3.0-9.0); NEUT # 4.9 10*3/uL (2.3-7.9); NEUT % 68.3 % (47.0-73.0); PLATELET COUNT AUTOMATED 233 10*3/uL (130-400); RED BLOOD COUNT 4.47 10*6/uL (4.10-5.10); WHITE BLOOD COUNT 7.2 10*3/uL (4.8-10.8)
[2017-09-27 07:35] LABS: CHLORIDE 102 mmol/L (98-107); POTASSIUM 4.2 mmol/L (3.5-5.1); SODIUM 140 mmol/L (136-145)
[2017-09-27 07:51] LABS: BUN 14 mg/dl (7-24); CREATININE 0.95 mg/dL (0.55-1.02); PHOSPHOROUS 3.2 mg/dL (2.5-4.9)
[2017-09-27 08:00] VITALS: BP 156/74
[2017-09-27 09:40] LABS: VITAMIN D, 25-HYDROXY 45.7 ng/mL (30-100)
[2017-09-27 12:00] VITALS: BP 171/83
[2017-09-27 16:14] VITALS: BP 185/86
[2017-09-27 16:17] VITALS: BP 164/84
== END 2017-09-27 16:19 | disposition home or self-care (01) | DRG 313 ==
LOC: ED 12:03 → EDHOLD 12:54 → 4E 12:54
PROVIDERS: Emergency Medicine; Family Medicine
DX: R07.89 Other chest pain (principal); N17.0 Acute kidney failure with tubular necrosis; E44.0 Moderate protein-calorie malnutrition; E11.65 Type 2 diabetes mellitus with hyperglycemia; E11.51 Type 2 diabetes mellitus with diabetic peripheral angiopathy without gangrene; I48.0 Paroxysmal atrial fibrillation; D64.9 Anemia, unspecified; E66.01 Morbid (severe) obesity due to excess calories; Z79.1 Long term (current) use of non-steroidal anti-inflammatories (NSAID); K21.9 Gastro-esophageal reflux disease without esophagitis; Z96.652 Presence of left artificial knee joint; I44.0 Atrioventricular block, first degree; D72.810 Lymphocytopenia; F32.9 Major depressive disorder, single episode, unspecified; I10 Essential (primary) hypertension; R55 Syncope and collapse; Z68.35 Body mass index [BMI] 35.0-35.9, adult; Z86.711 Personal history of pulmonary embolism; Z90.5 Acquired absence of kidney; Z90.710 Acquired absence of both cervix and uterus; Z90.49 Acquired absence of other specified parts of digestive tract; Z82.49 Family history of ischemic heart disease and other diseases of the circulatory system; Z82.5 Family history of asthma and other chronic lower respiratory diseases; Z88.0 Allergy status to penicillin; Z88.5 Allergy status to narcotic agent; Z88.8 Allergy status to other drugs, medicaments and biological substances

== ENCOUNTER → 2017-11-21 | Outpatient (CLI) | payer MEDICARE, MEDICAID ==
[~2017-11-21] MED LIST changes: +FERROUS SULFAT325 MG PO; +OYSTER SHELL C1 EAC1 PO; +POTASSIUM CITR10 MEQ PO
== END ==
LOC: ORTHO 03:32
DX: M25.562 Pain in left knee (principal); Z96.652 Presence of left artificial knee joint

== ENCOUNTER 2018-01-18 16:04 | Emergency (ER) | payer MEDICARE, MEDICAID ==
--- NOTE | ~2018-01-18 | EKG ---
[place], [place] ELECTROCARDIOGRAM REPORT NAME: JEREMIE TRUJILLO UNIT #: [id number] ROOM: DOCTOR: EPIPHANY DRAFT REPORT BIRTHDATE: [birth year] [facility] Test Date: 2018-01-18 Test Time: 16:42:58 Pat Name: JEREMIE TRUJILLO Department: Room: Gender: F Mechanical Systems Designer: SS RESP : [id number] Requested By: CANDIDA ROCKWELL Order Number: [id number] Reading MD: Eric To MD Measurements Intervals [place] Rate: 78 P: 260 [place]: 237 QRS: -37 QRSD: 109 T: 22 QT: 430 QTc: 490 Interpretive Statements Sinus atrial rhythm Prolonged [place] interval Abnormal R-wave progression, late transition Left ventricular hypertrophy Inferior infarct, old Lateral leads are also involved Electronically Signed On 01-19-2018 10:48:09 PDT by Eric To MD CM:EKGRPT:ELECTROCARDIOGRAM REPORT [id number] 1048 CANDIDA ROCKWELL EPIPHANY DRAFT REPORT CANDIDA ROCKWELL
[2018-01-18 16:05] VITALS: BP 168/69
[2018-01-18 17:44] LABS: BILIRUBIN NEGATIVE (NEGATIVE); BLOOD 1+ (NEGATIVE); CLARITY CLEAR (CLEAR); COLOR YELLOW (YELLOW); GLUCOSE 3+ (NEGATIVE); KETONE TRACE (NEGATIVE); LEUKO ESTERASE NEGATIVE (NEGATIVE); NITRITE NEGATIVE (NEGATIVE)
[2018-01-18 17:47] LABS: BASO % 0.2 % (0.0-1.0); EOS % 0.1 % (1.0-4.0); HEMATOCRIT 37.6 % (37.0-47.0); HEMOGLOBIN 11.9 g/dl (12.0-16.0); LYMPH # 1.9 10*3/uL (1.3-4.4); LYMPH % 15.1 % (27.0-41.0); MEAN CELL VOLUME 84.3 fl (81.0-99.0); MEAN CORPUSCULAR HGB 26.7 pg (27.0-31.0); MEAN CORPUSCULAR HGB CONC 31.6 g/dl (33.0-37.0); MEAN PLATELET VOLUME 11.4 fl (9.6-12.3); MONO # 1.3 10*3/uL (0.1-1.0); MONO % 10.6 % (3.0-9.0); NEUT # 9.1 10*3/uL (2.3-7.9); NEUT % 73.7 % (47.0-73.0); PLATELET COUNT AUTOMATED 249 10*3/uL (130-400); RED BLOOD COUNT 4.46 10*6/uL (4.10-5.10); RED CELL DISTRI WIDTH 15.3 % (0-14.5); WHITE BLOOD COUNT 12.4 10*3/uL (4.8-10.8)
[2018-01-18 17:57] LABS: INTERNATIONAL NORM RATIO 1.1 (2.0-3.5)
[2018-01-18 17:57] LABS: BACTERIA 4+; EPITHELIAL CELLS TNTC; MUCOUS TRACE
[2018-01-18 18:05] LABS: ALBUMIN 2.8 gm/dl (3.1-4.5); ALKALINE PHOSPHATASE 101 U/L (45-117); BUN 11 mg/dl (7-24); CHLORIDE 102 mmol/L (98-107); POTASSIUM 3.1 mmol/L (3.5-5.1); SGOT/AST 11 IU/L (3-35); SGPT/ALT 21 U/L (12-78); SODIUM 139 mmol/L (136-145); TOTAL PROTEIN 7.6 gm/dL (6.4-8.2)
[2018-01-18 18:06] LABS: TROPONIN I < 0.015 ng/ml (<0.045)
== END 2018-01-18 19:06 | disposition left against medical advice (07) ==
LOC: ED 16:04
PROVIDERS: Nurse Practitioner Family
DX: R07.81 Pleurodynia (principal); R55 Syncope and collapse; R42 Dizziness and giddiness; E11.9 Type 2 diabetes mellitus without complications; Z88.0 Allergy status to penicillin; Z88.6 Allergy status to analgesic agent; Z79.899 Other long term (current) drug therapy; W18.39XA Other fall on same level, initial encounter; Y93.89 Activity, other specified; Y92.89 Other specified places as the place of occurrence of the external cause; Y99.8 Other external cause status

== ENCOUNTER → 2018-02-16 | Outpatient (CLI) | payer MEDICARE, MEDICAID | END | disposition home or self-care (01) | LOC: US 10:21 | DX: N28.1 Cyst of kidney, acquired (principal); E11.9 Type 2 diabetes mellitus without complications; I10 Essential (primary) hypertension ==

== ENCOUNTER → 2018-02-23 | Outpatient (CLI) | payer MEDICARE, MEDICAID ==
[2018-02-23 12:18] LABS: CREATININE 1.09 mg/dL (0.55-1.02)
== END | disposition home or self-care (01) ==
LOC: LAB 11:53 → CT 11:53
PROVIDERS: Urology
DX: N28.89 Other specified disorders of kidney and ureter (principal); E27.9 Disorder of adrenal gland, unspecified; I51.7 Cardiomegaly

== ENCOUNTER 2018-08-17 11:31 | Emergency (ER) | payer MEDICARE, MEDICAID ==
[~2018-08-17] VITALS: Ht 170.1 cm; Wt 125.6 kg
== END 2018-08-17 13:46 | disposition home or self-care (01) ==
LOC: ED 11:31
DX: R04.0 Epistaxis (principal); I48.91 Unspecified atrial fibrillation; I10 Essential (primary) hypertension; E11.65 Type 2 diabetes mellitus with hyperglycemia; E66.9 Obesity, unspecified; Z86.711 Personal history of pulmonary embolism; K21.9 Gastro-esophageal reflux disease without esophagitis; Z79.4 Long term (current) use of insulin; Z68.42 Body mass index [BMI] 45.0-49.9, adult; Z79.899 Other long term (current) drug therapy; Z88.0 Allergy status to penicillin; Z88.5 Allergy status to narcotic agent; Z90.49 Acquired absence of other specified parts of digestive tract; Z90.710 Acquired absence of both cervix and uterus; Z98.890 Other specified postprocedural states; Z88.8 Allergy status to other drugs, medicaments and biological substances

== ENCOUNTER → 2018-08-24 | Day surgery (SDC) | payer MEDICARE, MEDICAID ==
[~2018-08-24] VITALS: Ht 170.1 cm; Wt 125.6 kg
--- NOTE | ~2018-08-24 | PROC NOTE ---
[place], [place] PROCEDURE NOTE NAME: JEREMIE TRUJILLO UNIT #: [id number] ROOM: DOCTOR: BETY SHERMAN MD BIRTHDATE: [birth year] DOS: 08/24/2018 PREOPERATIVE DIAGNOSIS: History of melena. POSTOPERATIVE DIAGNOSES: Poor prep, sigmoid diverticulosis. PROCEDURE: Flexible sigmoidoscopy (attempted colonoscopy). ENDOSCOPIST: Bety Sherman MD DYE MACHINE TENDER: JAI. ANESTHESIA: MAC. INDICATIONS: This is a 73-year-old lady who is here for a colonoscopy. for a workup for melena. The procedure and its complications were explained to the patient in detail preoperatively. Complications that were discussed included but were not limited to, bleeding, colon perforation and missed lesion. She agreed to proceed. DESCRIPTION OF PROCEDURE: After identifying the patient, the patient was brought to the endoscopy suite and placed in the left lateral position. After IV sedation was administered by the anesthesia team, a timeout was called. A digital rectal exam was performed, which was within normal limits. An adult colonoscope was now introduced into the anal canal and advanced sequentially into the rectum and sigmoid colon. Because of extremely poor prep, the scope could not be advanced beyond this level at sigmoid colon at approximately 20 cm. Evidence of diverticulosis was visualized. There was no obvious bleeding that could be seen and the scope was then withdrawn and the patient was brought back to the recovery room in a stable fashion. Based on these findings, the patient is recommended to have another colonoscopy in the next 2-3 weeks with a different prep. These findings were discussed with the patient's daughter in the recovery room. Bety Sherman MD CM:PROCNOTE:PROCEDURE NOTE 0826 1525 BETY SHERMAN MD
[2018-08-24 08:06] VITALS: BP 205/86
[2018-08-24 08:16] VITALS: BP 153/77
[2018-08-24 08:31] VITALS: BP 164/77
[2018-08-24 08:46] VITALS: BP 184/90
== END | disposition home or self-care (01) ==
LOC: SDC 08-21 12:30
DX: K57.30 Diverticulosis of large intestine without perforation or abscess without bleeding (principal); I10 Essential (primary) hypertension; E78.5 Hyperlipidemia, unspecified; E10.9 Type 1 diabetes mellitus without complications; M19.90 Unspecified osteoarthritis, unspecified site; E66.01 Morbid (severe) obesity due to excess calories; Z96.652 Presence of left artificial knee joint; Z86.711 Personal history of pulmonary embolism; Z86.718 Personal history of other venous thrombosis and embolism; Z98.890 Other specified postprocedural states; Z90.49 Acquired absence of other specified parts of digestive tract; Z90.710 Acquired absence of both cervix and uterus; Z68.41 Body mass index [BMI] 40.0-44.9, adult; Z88.0 Allergy status to penicillin; Z88.5 Allergy status to narcotic agent; Z88.8 Allergy status to other drugs, medicaments and biological substances; Z79.4 Long term (current) use of insulin; Z79.84 Long term (current) use of oral hypoglycemic drugs; Z79.1 Long term (current) use of non-steroidal anti-inflammatories (NSAID); Z79.01 Long term (current) use of anticoagulants; Z79.899 Other long term (current) drug therapy; Z79.82 Long term (current) use of aspirin; Z82.5 Family history of asthma and other chronic lower respiratory diseases; Z82.49 Family history of ischemic heart disease and other diseases of the circulatory system; Z83.3 Family history of diabetes mellitus

== ENCOUNTER → 2019-02-12 | Outpatient (CLI) | payer MEDICARE, MEDICAID | END | disposition home or self-care (01) | LOC: ORTHO 01:38 | DX: M17.11 Unilateral primary osteoarthritis, right knee (principal); M51.36 Other intervertebral disc degeneration, lumbar region; M47.816 Spondylosis without myelopathy or radiculopathy, lumbar region; Z96.652 Presence of left artificial knee joint ==

== ENCOUNTER → 2019-02-26 | Outpatient (CLI) | payer MEDICARE, MEDICAID | END | disposition home or self-care (01) | LOC: MRI 12:54 | DX: M48.061 Spinal stenosis, lumbar region without neurogenic claudication (principal); M47.816 Spondylosis without myelopathy or radiculopathy, lumbar region; M51.26 Other intervertebral disc displacement, lumbar region; M12.88 Other specific arthropathies, not elsewhere classified, other specified site ==

== ENCOUNTER 2019-04-03 17:09 | Emergency (ER) | payer MEDICARE, MEDICAID ==
[~2019-04-03] VITALS: Ht 170.1 cm; Wt 123.8 kg
--- NOTE | ~2019-04-03 | EKG ---
[place], [place] ELECTROCARDIOGRAM REPORT NAME: JEREMIE TRUJILLO UNIT #: [id number] ROOM: DOCTOR: TIFFANIEANY DRAFT REPORT BIRTHDATE: [birth year] [facility] Test Date: 2019-04-03 Test Time: 17:28:15 Pat Name: JEREMIE TRUJILLO Department: Room: Gender: F Bean Picker: : [phone] Requested By: RADHA PÉREZ Order Number: [id number] Reading MD: Harsh Kline MD Measurements Intervals [place] Rate: 67 P: -57 ID: 230 QRS: -30 QRSD: 112 T: 55 QT: 459 QTc: 485 Interpretive Statements Sinus or ectopic atrial rhythm Prolonged [place] interval Incomplete right bundle branch block Abnormal R-wave progression, late transition Left ventricular hypertrophy Compared to ECG 01/18/2018 16:42:58 Ectopic atrial rhythm now present Incomplete right bundle-branch block now present Myocardial infarct finding no longer present Electronically Signed On 04-05-2019 14:28:41 PST by Harsh Kline MD CM:EKGRPT:ELECTROCARDIOGRAM REPORT [id number] 1428 RADHA MONTERO DRAFT REPORT RADHA PÉREZ DO
[2019-04-03 17:10] VITALS: BP 198/73
[2019-04-03 17:34] LABS: BASO % 0.1 % (0.0-1.0); EOS # 0.1 10*3/uL (0.0-0.4); EOS % 1.5 % (1.0-4.0); HEMATOCRIT 36.6 % (37.0-47.0); HEMOGLOBIN 11.4 g/dl (12.0-16.0); LYMPH # 1.7 10*3/uL (1.3-4.4); LYMPH % 22.9 % (27.0-41.0); MEAN CELL VOLUME 82.6 fl (81.0-99.0); MEAN CORPUSCULAR HGB 25.7 pg (27.0-31.0); MEAN CORPUSCULAR HGB CONC 31.1 g/dl (33.0-37.0); MEAN PLATELET VOLUME 11.6 fl (9.6-12.3); MONO # 0.6 10*3/uL (0.1-1.0); MONO % 8.3 % (3.0-9.0); NEUT # 4.8 10*3/uL (2.3-7.9); NEUT % 66.9 % (47.0-73.0); PLATELET COUNT AUTOMATED 245 10*3/uL (130-400); RED BLOOD COUNT 4.43 10*6/uL (4.10-5.10); RED CELL DISTRI WIDTH 15.7 % (0-14.5); WHITE BLOOD COUNT 7.2 10*3/uL (4.8-10.8)
[2019-04-03 17:53] LABS: ALBUMIN 2.8 gm/dl (3.1-4.5); ALKALINE PHOSPHATASE 108 U/L (45-117); BUN 10 mg/dl (7-24); CHLORIDE 103 mmol/L (98-107); CREATININE 1.04 mg/dL (0.55-1.02); LIPASE 34 U/L (73-393); POTASSIUM 3.6 mmol/L (3.5-5.1); SGOT/AST 20 IU/L (3-35); SGPT/ALT 28 U/L (12-78); SODIUM 139 mmol/L (136-145); TOTAL PROTEIN 7.2 gm/dL (6.4-8.2)
[2019-04-03 17:54] LABS: TROPONIN I < 0.015 ng/ml (<0.045)
== END 2019-04-03 19:45 | disposition home or self-care (01) ==
LOC: ED 17:09
PROVIDERS: Emergency Medicine
DX: S30.1XXA Contusion of abdominal wall, initial encounter (principal); S20.219A Contusion of unspecified front wall of thorax, initial encounter; S09.90XA Unspecified injury of head, initial encounter; I48.91 Unspecified atrial fibrillation; K21.9 Gastro-esophageal reflux disease without esophagitis; I10 Essential (primary) hypertension; E66.01 Morbid (severe) obesity due to excess calories; E11.51 Type 2 diabetes mellitus with diabetic peripheral angiopathy without gangrene; Z68.41 Body mass index [BMI] 40.0-44.9, adult; Z88.0 Allergy status to penicillin; Z88.5 Allergy status to narcotic agent; Z88.8 Allergy status to other drugs, medicaments and biological substances; Z79.899 Other long term (current) drug therapy; Z79.4 Long term (current) use of insulin; W19.XXXA Unspecified fall, initial encounter; Y93.89 Activity, other specified; Y92.89 Other specified places as the place of occurrence of the external cause; Y99.8 Other external cause status

== ENCOUNTER → 2019-04-16 | Outpatient (CLI) | payer MEDICARE, MEDICAID | END | disposition home or self-care (01) | LOC: US 14:34 | DX: M79.662 Pain in left lower leg (principal); Z79.01 Long term (current) use of anticoagulants ==

== ENCOUNTER → 2019-04-24 | Outpatient (CLI) | payer MEDICARE, MEDICAID | END | disposition home or self-care (01) | LOC: CT 04-17 11:00 | DX: N28.1 Cyst of kidney, acquired (principal); R19.5 Other fecal abnormalities; R10.13 Epigastric pain; R10.9 Unspecified abdominal pain; M79.662 Pain in left lower leg; Z90.49 Acquired absence of other specified parts of digestive tract ==

== ENCOUNTER → 2019-05-10 | Outpatient (CLI) | payer MEDICARE, MEDICAID ==
[2019-05-10 09:25] LABS: BASO % 0.1 % (0.0-1.0); EOS # 0.2 10*3/uL (0.0-0.4); EOS % 2.1 % (1.0-4.0); HEMATOCRIT 36.5 % (37.0-47.0); LYMPH # 1.9 10*3/uL (1.3-4.4); LYMPH % 26.4 % (27.0-41.0); MEAN CELL VOLUME 82.4 fl (81.0-99.0); MEAN CORPUSCULAR HGB 24.8 pg (27.0-31.0); MEAN CORPUSCULAR HGB CONC 30.1 g/dl (33.0-37.0); MEAN PLATELET VOLUME 12.7 fl (9.6-12.3); MONO # 0.7 10*3/uL (0.1-1.0); MONO % 9.7 % (3.0-9.0); NEUT # 4.3 10*3/uL (2.3-7.9); NEUT % 61.4 % (47.0-73.0); PLATELET COUNT AUTOMATED 261 10*3/uL (130-400); RED BLOOD COUNT 4.43 10*6/uL (4.10-5.10); RED CELL DISTRI WIDTH 15.2 % (0-14.5)
[2019-05-10 10:03] LABS: ALBUMIN 2.9 gm/dl (3.1-4.5); BUN 8 mg/dl (7-24); CHLORIDE 108 mmol/L (98-107); POTASSIUM 3.5 mmol/L (3.5-5.1); SGOT/AST 21 IU/L (3-35); SODIUM 141 mmol/L (136-145); TOTAL PROTEIN 6.9 gm/dL (6.4-8.2)
[2019-05-10 10:17] LABS: ALKALINE PHOSPHATASE 98 U/L (45-117); CREATININE 0.91 mg/dL (0.55-1.02); FREE T4 1.17 ng/dl (0.76-1.46); SGPT/ALT 24 U/L (12-78)
== END | disposition home or self-care (01) ==
LOC: LAB 07:41
PROVIDERS: Family Medicine
DX: F41.8 Other specified anxiety disorders (principal); R19.7 Diarrhea, unspecified; R10.9 Unspecified abdominal pain; R29.6 Repeated falls

== ENCOUNTER → 2019-05-12 | Outpatient (CLI) | payer MEDICARE, MEDICAID ==
[2019-05-21 05:07] LABS: CREATININE, URINE 70 mg/dL (.); METANEPH-CREAT RATIO 43 ug/g (.); NORMETANEPHRINE/CREATININE 343 ug/g (.); URINE METANEPHRINE 24HR 57 ug/24 hr (.)
== END | disposition home or self-care (01) ==
LOC: LAB 10:28
PROVIDERS: Family Medicine
DX: F41.8 Other specified anxiety disorders (principal); R10.9 Unspecified abdominal pain; R19.7 Diarrhea, unspecified; R29.6 Repeated falls

== ENCOUNTER 2019-06-09 21:02 | Emergency (ER) | payer MEDICARE, MEDICAID ==
[~2019-06-09] VITALS: Ht 170.1 cm; Wt 122.9 kg
[2019-06-09 21:30] LABS: EOS # 0.1 10*3/uL (0.0-0.4); EOS % 1.2 % (1.0-4.0); HEMATOCRIT 38.9 % (37.0-47.0); HEMOGLOBIN 11.7 g/dl (12.0-16.0); LYMPH # 1.8 10*3/uL (1.3-4.4); LYMPH % 19.2 % (27.0-41.0); MEAN CELL VOLUME 81.7 fl (81.0-99.0); MEAN CORPUSCULAR HGB 24.6 pg (27.0-31.0); MEAN CORPUSCULAR HGB CONC 30.1 g/dl (33.0-37.0); MEAN PLATELET VOLUME 11.4 fl (9.6-12.3); MONO # 0.6 10*3/uL (0.1-1.0); MONO % 6.4 % (3.0-9.0); NEUT # 6.8 10*3/uL (2.3-7.9); PLATELET COUNT AUTOMATED 286 10*3/uL (130-400); RED BLOOD COUNT 4.76 10*6/uL (4.10-5.10); RED CELL DISTRI WIDTH 15.5 % (0-14.5); WHITE BLOOD COUNT 9.3 10*3/uL (4.8-10.8)
[2019-06-09 21:41] LABS: ACT PARTIAL THROMBO TIME 38.8 SECONDS (20.0-32.1); INTERNATIONAL NORM RATIO 1.3 (2.0-3.5)
[2019-06-09 21:46] LABS: ALBUMIN 3.1 gm/dl (3.1-4.5); ALKALINE PHOSPHATASE 151 U/L (45-117); BUN 8 mg/dl (7-24); CHLORIDE 106 mmol/L (98-107); CREATININE 0.94 mg/dL (0.55-1.02); POTASSIUM 3.5 mmol/L (3.5-5.1); SGOT/AST 22 IU/L (3-35); SGPT/ALT 30 U/L (12-78); SODIUM 140 mmol/L (136-145); TOTAL PROTEIN 7.8 gm/dL (6.4-8.2)
[2019-06-10 01:56] LABS: ALKALINE PHOSPHATASE 141 U/L (45-117); BUN 9 mg/dl (7-24); CHLORIDE 107 mmol/L (98-107); CREATININE 0.91 mg/dL (0.55-1.02); LIPASE 23 U/L (73-393); POTASSIUM 3.5 mmol/L (3.5-5.1); SGOT/AST 22 IU/L (3-35); SGPT/ALT 28 U/L (12-78); SODIUM 142 mmol/L (136-145); TOTAL PROTEIN 7.6 gm/dL (6.4-8.2)
[2019-06-10 01:57] LABS: TROPONIN I < 0.015 ng/ml (<0.045)
[2019-06-10 02:00] VITALS: BP 162/84
== END 2019-06-10 02:30 | disposition home or self-care (01) ==
LOC: ED 21:02
PROVIDERS: Emergency Medicine Emergency Medical Services
DX: R04.0 Epistaxis (principal); I10 Essential (primary) hypertension; I20.9 Angina pectoris, unspecified; I48.91 Unspecified atrial fibrillation; E11.51 Type 2 diabetes mellitus with diabetic peripheral angiopathy without gangrene; K21.9 Gastro-esophageal reflux disease without esophagitis; E66.01 Morbid (severe) obesity due to excess calories; Z88.0 Allergy status to penicillin; Z88.5 Allergy status to narcotic agent; Z88.8 Allergy status to other drugs, medicaments and biological substances; Z79.899 Other long term (current) drug therapy; Z79.4 Long term (current) use of insulin; Z68.41 Body mass index [BMI] 40.0-44.9, adult; Z98.61 Coronary angioplasty status; Z90.49 Acquired absence of other specified parts of digestive tract; Z90.710 Acquired absence of both cervix and uterus; Z98.890 Other specified postprocedural states

== ENCOUNTER → 2019-06-15 | Outpatient (CLI) | payer MEDICARE, MEDICAID | END | disposition home or self-care (01) | LOC: CARD 09:45 | DX: I48.0 Paroxysmal atrial fibrillation (principal); R07.89 Other chest pain; R55 Syncope and collapse ==

== ENCOUNTER → 2019-07-03 | Outpatient (CLI) | payer MEDICARE, MEDICAID | END | disposition home or self-care (01) | LOC: CARD 12:40 | DX: I51.7 Cardiomegaly (principal); I34.8 Other nonrheumatic mitral valve disorders; R07.89 Other chest pain; I48.0 Paroxysmal atrial fibrillation; R55 Syncope and collapse ==

== ENCOUNTER → 2019-08-14 | Outpatient (CLI) | payer MEDICARE, MEDICAID | END | disposition home or self-care (01) | LOC: US 07-02 10:30 | DX: I16.0 Hypertensive urgency (principal); I10 Essential (primary) hypertension; E11.9 Type 2 diabetes mellitus without complications ==

== ENCOUNTER 2019-09-24 11:30 | Emergency (ER) | payer MEDICARE, MEDICAID ==
[~2019-09-24] VITALS: Ht 172.7 cm; Wt 108.9 kg
[2019-09-24 12:10] VITALS: BP 180/84
[2019-09-24 12:21] LABS: BASO % 0.2 % (0.0-1.0); EOS # 0.2 10*3/uL (0.0-0.4); EOS % 1.9 % (1.0-4.0); HEMATOCRIT 39.1 % (37.0-47.0); LYMPH # 2.8 10*3/uL (1.3-4.4); LYMPH % 32.5 % (27.0-41.0); MEAN CELL VOLUME 77.6 fl (81.0-99.0); MEAN CORPUSCULAR HGB 23.6 pg (27.0-31.0); MEAN CORPUSCULAR HGB CONC 30.4 g/dl (33.0-37.0); MEAN PLATELET VOLUME 10.9 fl (9.6-12.3); MONO # 0.6 10*3/uL (0.1-1.0); MONO % 6.9 % (3.0-9.0); NEUT # 4.9 10*3/uL (2.3-7.9); NEUT % 58.1 % (47.0-73.0); PLATELET COUNT AUTOMATED 253 10*3/uL (130-400); RED BLOOD COUNT 5.04 10*6/uL (4.10-5.10); RED CELL DISTRI WIDTH 17.9 % (0-14.5); WHITE BLOOD COUNT 8.5 10*3/uL (4.8-10.8)
[2019-09-24 12:30] LABS: ACT PARTIAL THROMBO TIME 27.7 SECONDS (20.0-32.1)
[2019-09-24 12:36] LABS: ALBUMIN 3.1 gm/dl (3.1-4.5); ALKALINE PHOSPHATASE 126 U/L (45-117); BUN 8 mg/dl (7-24); CHLORIDE 104 mmol/L (98-107); CREATININE 0.86 mg/dL (0.55-1.02); POTASSIUM 3.8 mmol/L (3.5-5.1); SGOT/AST 37 IU/L (3-35); SGPT/ALT 35 U/L (12-78); SODIUM 138 mmol/L (136-145); TOTAL PROTEIN 7.8 gm/dL (6.4-8.2)
== END 2019-09-24 15:06 | disposition short-term general hospital (02) ==
LOC: ED 11:30
PROVIDERS: Emergency Medicine
DX: I62.9 Nontraumatic intracranial hemorrhage, unspecified (principal); I10 Essential (primary) hypertension; E11.9 Type 2 diabetes mellitus without complications; I48.91 Unspecified atrial fibrillation; Z88.5 Allergy status to narcotic agent; Z88.0 Allergy status to penicillin; Z88.8 Allergy status to other drugs, medicaments and biological substances

== ENCOUNTER 2019-11-04 12:46 | Inpatient (IN) | payer MEDICARE, MEDICAID ==
[~2019-11-04] VITALS: Ht 172.7 cm; Wt 109.8 kg
[2019-11-04 12:46] VITALS: BP 178/94
--- NOTE | 2019-11-04 13:05 | NUR ---
NURSE REPORT TO ROBB LEVI, FOR CONTINUATION OF CARE. FAMILY MEMBER NOW ARRIVES TO BEDSIDE.
[2019-11-04 13:12] LABS: BASO % 0.1 % (0.0-1.0); EOS # 0.1 10*3/uL (0.0-0.4); EOS % 1.2 % (1.0-4.0); HEMATOCRIT 40.3 % (37.0-47.0); LYMPH # 2.2 10*3/uL (1.3-4.4); LYMPH % 31.3 % (27.0-41.0); MEAN CELL VOLUME 83.3 fl (81.0-99.0); MEAN CORPUSCULAR HGB 25.8 pg (27.0-31.0); MEAN PLATELET VOLUME 12.3 fl (9.6-12.3); MONO # 0.4 10*3/uL (0.1-1.0); MONO % 5.8 % (3.0-9.0); NEUT # 4.3 10*3/uL (2.3-7.9); NEUT % 61.5 % (47.0-73.0); PLATELET COUNT AUTOMATED 169 10*3/uL (130-400); RED BLOOD COUNT 4.84 10*6/uL (4.10-5.10); RED CELL DISTRI WIDTH 21.1 % (0-14.5); WHITE BLOOD COUNT 6.9 10*3/uL (4.8-10.8)
[2019-11-04 13:21] LABS: ACT PARTIAL THROMBO TIME 26.8 SECONDS (20.0-32.1); INTERNATIONAL NORM RATIO 1.1 (2.0-3.5)
[2019-11-04 13:27] LABS: ALBUMIN 3.1 gm/dl (3.1-4.5); ALKALINE PHOSPHATASE 90 U/L (45-117); BUN 33 mg/dl (7-24); CHLORIDE 112 mmol/L (98-107); CREATININE 1.44 mg/dL (0.55-1.02); SGOT/AST 36 IU/L (3-35); SGPT/ALT 43 U/L (12-78); SODIUM 142 mmol/L (136-145); TOTAL PROTEIN 7.2 gm/dL (6.4-8.2)
[2019-11-04 13:28] LABS: TROPONIN I < 0.015 ng/ml (<0.045)
--- NOTE | 2019-11-04 15:01 | NUR ---
ATTEMPTED TO GIVE TYLENOL PER PT REQUEST. SHE WAS UNABLE TO SWALLOW PILL. DR ABDIEL GALINDO.
[2019-11-04 15:33] VITALS: BP 139/60
--- NOTE | 2019-11-04 15:40 | NUR ---
Time: 1539 A 74 year old FEMALE admitted to under services of ULISSES YEE DO. Pt. arrived via stret[place] from [place]. Chief complaint: DYSPHAGIA,CHEST PAIN. FAMILY AT BEDSIDE, PT UNABLE TO ANSWER QUESTIONS AT THIS TIME, FAMILY ANSWERED ALL ADMISSION QUESTIONS. PT HISTORY OF CVA, RIGHT PARAPELIGIA, RIGHT FACIAL DROOP. JC VILLARREAL
[2019-11-04] MEDS ORDERED: BACLOFEN5 MG PO (15:50)
[2019-11-04] MEDS ORDERED: COREG12.5 M1 PO (15:51)
[2019-11-04] MEDS ORDERED: CHLORTHALIDONE25 MG PO (15:53)
[2019-11-04] MEDS ORDERED: K-TAB20 MEQ PO (15:54)
[2019-11-04] MEDS ORDERED: HEARTBURN RELIE10 MG PO (15:56)
[2019-11-04] MEDS ORDERED: TYLENOL325 M3 PO (15:57)
[2019-11-04] MEDS ORDERED: SENNA8.6 MG PO (15:58)
--- NOTE | 2019-11-04 16:00 | NUR ---
HOME MEDICATION UPDATED VIA FAMILY RECALL AND LIST
--- NOTE | 2019-11-04 18:05 | NUR ---
NOTIFIED DR. BLANK THAT PATIENT IS UNABLE TO SWALLOW, AND PATIENT COMPLAIN OF PAIN, ORDERS RECEIVED MADE NPO, ORDER FOR RECTAL TYLENOL
--- NOTE | 2019-11-04 18:13 | NUR ---
PT COMPLAIN OF NAUSEA, ZOFRAN GIVEN
--- NOTE | 2019-11-04 19:44 | NUR ---
PT STATES ZOFRAN AND TYLENOL "HELPED SOME".
[2019-11-04 20:00] VITALS: BP 114/63
--- NOTE | 2019-11-04 21:30 | NUR ---
SPOKE WITH DR. ANTUNEZ AT THIS TIME. NOTIFIED HIM OF PATIENTS HISTORY AND WHAT IS GOING ON NOW. PATIENT IS HAVING DRY HEAVES, BUT IS HAVING TROUBLE SWALLOWING AND IS COMPLAINING OF PAIN IN HER LEGS, BACK AND RIGHT SIDE OF STOMACH.PER PATIENTS DAUGHTER SHE MOVED HER BOWELS YESTERDAY AND IT WAS NORMAL, BUT SHE DID SLEEP IN AN ODD POSITION THE OTHER NIGHT AND THAT MAY BE WHY HE BACK HURTS. PATIENT IS ON BACLOFEN BUT IS UNABLE TO TAKE IT DUE TO SWALLOWING. PATIENT IS ALSO ALLRGIC TO CODEINE AND DEMEROL AND IS UNABLE TO HAVE IV MORPHINE. PATIENT STATED SHE WOULD TRY TO TAKE MEDICINE CRUSHED UP, BUT IS UNSURE IF SHE IS ABLE. PATIENT IS COUGHING SPUTUM UP AND APPEARS TO BE SWALLOWING IT BACK DOWN. PATIENTS HEAD OF BED ELEVATED FOR ASPIRATION CONCERNS. ORDER RECIEVED AT THIS TIME FOR IV PROTONIX FOR THE UPSET STOMACH
--- NOTE | 2019-11-04 22:35 | NUR ---
ATTEMPTED TO GIVE PATIENT A SMALL BITE OF ICE CREAM PER DR. ANTUNEZ TO SEE IF SHE CAN TAKE PILLS CRUSHED, PATIENT STATED SHE WOULD TRY ANYTHING TO MAKE HER BETTER. PATIENT IMMEDIATELY SPIT ICE CREAM BACK OUT. NOTIFIED DR. ANTUNEZ, HE STATED HE WOULD ORDER TOPICAL LIDOCAINE FOR THE PAIN IN HER BACK AND LEGS AT THIS TIME UNTIL SHE IS ABLE TO HAVE A MODIFIED BARIUM SWALLOW WITH SPEECH TOMORROW.
--- NOTE | 2019-11-04 22:45 | NUR ---
PRN LIDOCAINE APPLIED TO LOWER BACK WHERE PATIENT COMPLAINING OF PAIN. CALL LIGHT WITHIN REACH, WILL MONITOR
--- NOTE | 2019-11-04 23:00 | NUR ---
ATTEMPTED TO ADJUST PATIENT FOR COMFORT SHE CONTINUES TO COMPLAIN OF LEG PAIN, STATING THAT IT'S WORSE IN THE RIGHT THAN THE LEFT, BUT IT IS IN BOTH. PATIENT YELLING MORE IN PAIN. UNABLE TO REPOSITION FOR COMFORT. WILL CONTINUE TO MONITOR
--- NOTE | 2019-11-04 23:54 | NUR ---
PRN LIDOCAINE APPLIED TO LOWER BACK FOR PAIN. CALL LIGHT WITHIN REACH, WILL OMEROIOR
--- NOTE | 2019-11-04 23:58 | NUR ---
PATIENT APPEARS TO BE SLEEPING AT THIS TIME. NO DISTRESS NOTED. CALL LIGHT WITHIN REACH, WILL MONITOR
[2019-11-05] VITALS: BP 108/66
--- NOTE | 2019-11-05 02:18 | NUR ---
PATIENT CONTINUES TO SLEEP, NO DISTRESS NOTED, BREATHING IS EASY AND REGULAR. CALL LIGHT WITHIN REACH, WILL MONITOR
--- NOTE | 2019-11-05 02:45 | NUR ---
PATIENT CONTINUES TO SLEEP, NO DISTRES NOTED.BREATHING IS EASY AND REGULAR WITHOUT DISTRESS ON ROOM AIR. CALL LIGHT WITHIN REACH, WILL MONITOR
--- NOTE | 2019-11-05 02:58 | NUR ---
24 HR chart check completed.
--- NOTE | 2019-11-05 03:19 | NUR ---
PRN TYLENOL GIVEN FOR PT COMPLAINTS OF RIGHT SIDED ABDOMINAL PAIN. UNABLE TO RATE. CALL LIGHT WITHIN REACH, WILL MONITOR
--- NOTE | 2019-11-05 03:27 | NUR ---
PRN ZOFRAN GIVEN FOR PATIENT DEVELOPING DRY HEAVES FROM PAIN IN STOMACH. CALL LIGHT WITHIN REACH, WILL MONITOR
--- NOTE | 2019-11-05 04:00 | NUR ---
PRN TYLENOL AND ZOFRAN APPEARS EFFECTIVE, PT SLEEPING. SNORING RESPIRATIONS
[2019-11-05 06:26] LABS: MEAN CORPUSCULAR HGB 26.3 pg (27.0-31.0); MEAN CORPUSCULAR HGB CONC 31.8 g/dl (33.0-37.0); PLATELET COUNT AUTOMATED 157 10*3/uL (130-400); RED BLOOD COUNT 4.82 10*6/uL (4.10-5.10); RED CELL DISTRI WIDTH 21.1 % (0-14.5); WHITE BLOOD COUNT 6.3 10*3/uL (4.8-10.8)
[2019-11-05 06:49] LABS: CREATININE 1.21 mg/dL (0.55-1.02); POTASSIUM 3.8 mmol/L (3.5-5.1)
[2019-11-05 07:23] LABS: PLATELET SUFFICIENCY NORMAL (NORMAL); TOTAL CELLS COUNTED 100 #CELLS
--- NOTE | 2019-11-05 07:52 | NUR ---
ASSESSMENT COMPLETE. PT AWAKE, ALERT. STATES PAIN IN STOMACH. ATTEMPT NERUO CHECKS, PT FOLLOWED MINIMAL COMMANDS, ASKED PATIENT IF SHE WAS UNABLE TO DO NEURO EXAM, PT STATES "HURT TOO BAD". PT ABLE TO SQUEEZE HAND ON LEFT SIDE, WIGGLE TOES ON LEFT HAND. ANSWER QUESTIONS APPROPRIATELY.
[2019-11-05 08:00] VITALS: BP 112/60
--- NOTE | 2019-11-05 08:49 | NUR ---
PHYSICAL THERAPY Nursing screen received and chart reviewed. PT evaluation received. Will follow. Thank you. Suad Quintero,PT,DPT
--- NOTE | 2019-11-05 09:05 | NUR ---
Nursing screen and OT eval received. Will follow up with patient. Thank you. Sarah Barbosa OTR/L
--- NOTE | 2019-11-05 09:26 | NUR ---
PT STATES "I FEEL HORRIBLE" MORPHINE GIVEN ORDERED. WILL MONITOR FOR EFFECTIVENESS
--- NOTE | 2019-11-05 10:00 | NUR ---
MORPHINE EFECTIVE FOR PAIN
--- NOTE | 2019-11-05 10:54 | NUR ---
PT SENT TO CT SCAN VIA CART
--- NOTE | 2019-11-05 11:08 | NUR ---
DR. YANG AWARE OF CONSULT
--- NOTE | 2019-11-05 11:18 | NUR ---
PT COMPLAINING OF ABDOMINAL PAIN, TYLENOL GIVEN. WILL MONITOR FOR EFFECTIVENESS
[2019-11-05 12:00] VITALS: BP 102/74
--- NOTE | 2019-11-05 12:54 | NUR ---
BLADDER SCAN PATIENT, >400 ON BLADDER SCANNER. CHRISTIN GRUBBS NP IN AT BEDSIDE WHILE BLADDER SCANNING PATIENT, ORDER TO PLACE LION CATH AT THIS TIME, CHRISTIN GRUBBS WILL PLACE ORDERS
--- NOTE | 2019-11-05 12:55 | NUR ---
LION PLACED,WITHOUT DIFFICULTY. URINE OBTAINED, YELLOW CLEAR
--- NOTE | 2019-11-05 13:37 | NUR ---
Forensic Medical Examiner in to talk to patient. Patient states lives at HOME with DAUGHTER. There are NO steps in the home. Physician: VICKI STALLWORTH [facility]acy[facility] Home health services: NONE Patient's level of ADLs: MAX ASSIST Patient has working utilities: YES DME: CHAIR, HOSPITAL BED, BSC Follow-up physician's appointment after d/c: WILL BE MADE BY HOSPITALIST NURSE DIRECTOR ON DISCHARGE Does patient want to access PORTAL?: NO Discharge plan PT LIVES AT HOME WITH HER DAUGHTER. TALKED WITH DAUGHTER AND SHE STATES HE PLAN IS TO HAVE HER MOTHER RETURN HOME WITH HER IF IT IS POSSIBLE. SAYS SHE HAS TALKED WITH CHRISTIN AND THEY ARE WAITING TO SEE HOW PT DOES. DAUGHTER STATES THEY HAVE CHAIR, HOSPITAL BED AND BSC AT HOME. ALSO HAS [facility]. DENIES ANY OTHER NEEDS. WILL CONTINUE TO FOLLOW. MICHELLE ROMERO
[2019-11-05 13:58] LABS: CLARITY SL CLOUDY (CLEAR); COLOR YELLOW (YELLOW)
[2019-11-05 13:59] LABS: BILIRUBIN 1+ (NEGATIVE); BLOOD NEGATIVE (NEGATIVE); GLUCOSE NEGATIVE (NEGATIVE); KETONE NEGATIVE (NEGATIVE); LEUKO ESTERASE TRACE (NEGATIVE); NITRITE NEGATIVE (NEGATIVE); UROBILINOGEN 0.2 E.U./dl (0.2-1.0)
[2019-11-05 14:01] LABS: BACTERIA 1+; MUCOUS 1+; RBC 0-2 rbc/hpf (0-2); URIC ACID CRYSTALS 1+
--- NOTE | 2019-11-05 14:25 | NUR ---
LEFT HEEL RED, BOOTS ORDERED
--- NOTE | 2019-11-05 15:25 | NUR ---
PHYSICAL THERAPY Chart review done. Attempted eval but even as I touched each extremity pt started to express extreme pain in every extremity loudly as well as right lower abdominal pain. Discussed with her RN Roma; she says she has an order for morphine which she will administer. Will attempt eval 11/06/19 if pain in controlled. Diana Sutherland, PT
[2019-11-05 16:00] VITALS: BP 109/65
--- NOTE | 2019-11-05 17:08 | NUR ---
PT MOANING IN PAIN. PT ALSO YELLING OUT WHEN HER EXTREMITIES ARE LIGHTLY TOUCHED. PRN MORPHINE ADMINISTERED. WILL MONITOR FOR EFFECTIVE.
--- NOTE | 2019-11-05 18:08 | NUR ---
PT RESTING IN BED WITH EYES CLOSED. NO S/S OF DISTRESS OR PAIN. PRN MORPHINE CONSIDERED EFFECTIVE.
--- NOTE | 2019-11-05 18:41 | NUR ---
SPEECH THERAPY Patient referred for bedside swallowing evaluation due to concerns for dysphagia. Patient additionally ordered a MBS, however due to staffing and scheduling, patient not able to have assessment done this date and will be performed at later date as able. 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 Patient presented to ER due to change in status with patient's daughther notcing new difficulty swallowing. She was previously on a soft diet with thin liquids and she "had been doing well." CT of chest was unremarkable and CT of head stated no definite acute intracranial pathology seen. Per nursing note dated 11/03, patient was "unable to swallow pill." Upon arrival, patient was reclined in bed and appeared to be in obvious pain. She complained of right-sided pain, especially in her legs. When asked about swallowing, she reported right-sided odynophagia and sticking sensation in her right-side. She reported having a coughing episode during liquids once this week. Oral [facility] exam revealed reduced lingual and labial strength and ROM, with increased deficits on right side. Mild-moderate deficits additionally observed in volitional swallow. Patient assessed with ice chip and tsp of water which resulted in reflexive cough. Liquids were down-graded to nectar-like, with no overt s/s of penetration or aspiration observed via tsp or when self-fed via cup with cues for small, single sips. Patient additionally administered bites of applesauce, with no overt s/s of penetration or aspiration. She demonstrated oral deficits with anterior leaking. Food was additionally presented with left side to compensate for right-sided deficits. Positional strategy also attempted with head turn right, however patient reported this caused more pain. Patient presents with mild-moderate oropharyngeal dysphagia characterized by oral weakness and reduced control of bolus with s/s of penetration/aspiration observed during trials of thin liquid. Recommend pureed diet with nectar-like liquids. Present material to left-side to compensate for right-sided deficits. Safe swallowing strategies additionally recommended including sitting upright at 90 degrees during meals, taking small bites and sips, alternating between solids and liquids, checking oral cavity for residues, and remaining upright for at least 30 minutes following meals. Additionally recommend MBS to further assess anatomy and physiology of oropharyngeal swallow mechanism. Speech therapy to conduct follow up treatment 1x daily at a meal until MBS to ensure safety and tolerance of recommended diet and adherence to safe swallowing strategies. Thank you for your consultation. Jennifer Harvey MA [facility]-ICER MACHINE OPERATOR
[2019-11-05 20:00] VITALS: BP 118/70
[2019-11-06] VITALS: BP 117/67
--- NOTE | 2019-11-06 02:00 | NUR ---
Patient resting quietly with no c/o discomfort. Respirations easy and regular. Vital signs stable. No overt distress. CESAR GUTIERREZ
--- NOTE | 2019-11-06 07:50 | NUR ---
INITIAL ASSESSMENT COMPLETED. RESPS EASY ON RA. LUNGS DIM T/O.FREQUENT COIN TELLER COUGH.SPO2 99% ON RA. VOICES NO C/O AT THIS TIME.WILL CONTINUE TO MONITOR.
[2019-11-06 08:00] VITALS: BP 157/90
--- NOTE | 2019-11-06 08:10 | NUR ---
FLOAT ROBB STEELE ADVISED ME PT WAS STATING " I CAN'T BREATHE". UPON ENTERING ROOM PT WAS COUGHING AND STATED "IT'S STUCK" "I CAN'T STOP COUGHING". ENCOURAGED PT TO CALM DOWN. SPO2 99% ON RA. UPON ASSESSMENT FAINT RALES WERE NOTED. STOPPED FLUIDS AND NOTIFIED CHRISTIN GRUBBS CNP.ORDERS RECIEVED.
--- NOTE | 2019-11-06 08:32 | NUR ---
Morphine 1 mg given for c/o generalized pain,02/22.
--- NOTE | 2019-11-06 09:11 | NUR ---
PHYSICAL THERAPY Attempted eval; has ST in. Will try again later. Diana Sutherland, PT
[2019-11-06 09:15] LABS: ALBUMIN 2.8 gm/dl (3.1-4.5); CREATININE 1.09 mg/dL (0.55-1.02); TOTAL PROTEIN 6.4 gm/dL (6.4-8.2)
[2019-11-06 09:16] LABS: POTASSIUM 3.8 mmol/L (3.5-5.1)
--- NOTE | 2019-11-06 09:16 | NUR ---
SPEECH PATHOLOGY Patient seen at bedside this am during mealtime to attempt swallowing treatment. Patient was resting in bed and was awakened easily. Her breakfast tray was at bedside and had pureed foods and thickener with it (she is on nectar thick liquids and puree diet). She agreed to be sat up in bed and attempt to eat breakfast. Clinician presented small bit of applesauce to left side. Patient immediately had to expectorate applesauce as she had large amount of phlegm to cough out, which she did into napkin. She stated that she was not very hungry and began complaining of intense pain in left side of chest area. She also complained of weakness in left arm. Clinician ceased feeding and notified nurse of patient's report of pain and inability to tolerate breakfast at this time. Will follow up at later time during meal to ensure safe swallowing precautions and recommendations from evaluation. Jairo Martinez MA [facility]-OVERHAULER HELPER
--- NOTE | 2019-11-06 11:34 | NUR ---
UPDATED RED CROSS ON PT STATUS. , [phone].
--- NOTE | 2019-11-06 11:41 | NUR ---
SPOKE WITH DAUGHTER YESTERDAY AND SHE STATES SHE WANTS TO TAKE PT BACK TO HER HOME ON DISCHARGE. STATES THEY ALREADY HAVE EQUIPMENT IN PLACE. WILL CONTINUE TO FOLLOW.
[2019-11-06 12:00] VITALS: BP 138/70
--- NOTE | 2019-11-06 12:06 | NUR ---
PHYSICAL THERAPY Initial eval done at bedside. Limited to bedside due to pain in abdomen and extremities with exercise. See eval for details. Brief synopsis: unable to move right hemibody and PROM through limited ROM increases pain; able to perform active/assist ROM ex left hemibody through partial ROM (again, limited due to pain). Deferred transfers, etc as pt unable to tolerate at this time. Will cont to try to advance POC as pt able to tolerate. Recommend dc to SNF due to severe disability. Diana Sutherland, PT
[2019-11-06 16:00] VITALS: BP 110/55
--- NOTE | 2019-11-06 17:36 | NUR ---
Patient resting quietly with no c/o discomfort. Respirations easy and regular. Vital signs stable. No overt c/o. Pt finished lunch.Will continue to monitor. LUCIA GARCIA
[2019-11-06 20:00] VITALS: BP 129/65
--- NOTE | 2019-11-06 20:00 | NUR ---
IN TO ASSESS PATIENT. PATIENT SITTING UP IN BED. JUST FINISHED EATING APPLESAUCE AND GRAPE JUICE. PATIENT ALERT AND ORIENTED AND PLEASANT, STATED THAT SHE STILL FEELS LIKE SHES WEAK AND CAN BARELY SIT UP. REASSURED PATIENT THAT SHE'S DOING MUCH BETTER THAN EARLIER IN THE WEEK. PATIENT REQUESTED TO HAVE HER SUGAR CHECKED LATER SINCE SHE'S STARTING TO EAT A LITTLE BIT NOW.
--- NOTE | 2019-11-06 22:22 | NUR ---
PRN MORPHINE GIVEN FOR PT COMPLAINTS OF COMPLETE RIGHT SIDE PAIN ESPECIAILLY IN THE LEG/GROIN AREA. CALL LIGHT WITHIN REACH, WILL MONITOR
--- NOTE | 2019-11-06 23:15 | NUR ---
PRN MORPHINE APPEARS EFFECTIVE PT SLEEPING
[2019-11-07] VITALS: BP 128/68
--- NOTE | 2019-11-07 01:43 | NUR ---
PATIENT CONTINUES TO SLEEP. NO DISTRESS NOTED. BREATHING IS EASY AND REGULAR WITHOUT DISTRESS.
--- NOTE | 2019-11-07 03:00 | NUR ---
PATIENT CONTINUES TO SLEEP. NO DISTRESS NOTED.BREATHING IS EASY AND REGULAR. CALL LIGHT WITHIN REACH, WILL MONITOR
--- NOTE | 2019-11-07 03:29 | NUR ---
24 HR chart check completed.
[2019-11-07 06:17] LABS: HEMATOCRIT 40.2 % (37.0-47.0); MEAN CELL VOLUME 83.6 fl (81.0-99.0); MEAN CORPUSCULAR HGB CONC 31.1 g/dl (33.0-37.0); PLATELET COUNT AUTOMATED 142 10*3/uL (130-400); RED BLOOD COUNT 4.81 10*6/uL (4.10-5.10); RED CELL DISTRI WIDTH 20.7 % (0-14.5); WHITE BLOOD COUNT 6.6 10*3/uL (4.8-10.8)
[2019-11-07 06:44] LABS: BASOPHILS 1 % (0-1); OVALOCYTES FEW; PLATELET SUFFICIENCY NORMAL (NORMAL); TOTAL CELLS COUNTED 100 #CELLS
[2019-11-07 06:55] LABS: ALBUMIN 2.8 gm/dl (3.1-4.5); CREATININE 1.13 mg/dL (0.55-1.02); POTASSIUM 3.6 mmol/L (3.5-5.1); TOTAL PROTEIN 6.5 gm/dL (6.4-8.2)
[2019-11-07 08:00] VITALS: BP 149/75
--- NOTE | 2019-11-07 09:15 | NUR ---
TALKED WITH PT DAUGHTER BY PHONE, EXPLAINED THAT THERAPY RECOMMENDS SNF FOR HER MOTHER. DAUGHTER STATES SHE IS COMING IN AND WILL DISCUSS IT WITH HER MOM.
--- NOTE | 2019-11-07 09:49 | NUR ---
PHYSICAL THERAPY Pt seen at bedside this morning. Today she is barely verbalizing, just whispering. She participated in 5 reps of active left UE/LE ex in bed; then another 20 reps all planes active/assist with today not indicating as much pain with movement and was able to achieve WFL ROM at LE joints. I then did perform PROM right LE to prepare for mobility training with this eliciting some pain in right leg, but not as much as 11/06/19. Progressed them to supine to sitting at right edge of bed with pt able to initiate the first few degrees of left LE movement but needed then total assist to complete. Sat up at edge a total of 8 min with flexed trunk posture with cues for leaning to assist balance onto outstretched left arm/hand and needing varying mod-max assist to maintain upright posture. With fatigue flexed posture worsened and needed more physical assist to prevent fall. Return to supine position also required total assist. Very fatigued after session. All bed alarms turned back on and pt resting with head of bed inclined at end of session. Recommend strongly SNF for rehab and strengthening, functional mobility training to improve safety, transfer ability and decrease load on caregiver. Total time: 24 min Diana Sutherland, PT
--- NOTE | 2019-11-07 11:03 | NUR ---
DAUGHTER VISITING AT BEDSIDE. NOTIFIED CHRISTIN GRUBBS. CHRISTIN IN TO SEE PT AND DAUGHTER TO UPDATE HER ON PLAN OF CARE AND SNF RECOMMENDATIONS.
--- NOTE | 2019-11-07 11:14 | NUR ---
NIGHT CLUB MANAGER IN TO TALK WITH PT AND DAUGHTER. CHRISTIN GRUBBS ALSO IN ROOM. PT AND DAUGHTER HAVE AGREED THAT PT CAN GO TO [facility] FOR REHAB BEFORE GOING BACK TO LIVE WITH DAUGHTER.
--- NOTE | 2019-11-07 11:40 | NUR ---
Occupational Therapy evaluation completed on 5E with full evaluation to follow. Recommend occupational therapy per plan of care and SNF upon discharge. Thank you for this referral. Sarah Barbosa OTR/L
--- NOTE | 2019-11-07 11:53 | NUR ---
SENIOR TECHNOLOGIST FAXED NEW REFERRAL TO [facility].
[2019-11-07 12:00] VITALS: BP 106/54
--- NOTE | 2019-11-07 13:06 | NUR ---
SPEECH THERAPY IN TO PERFORM SWALLOW EVAL FOR PT . PT UNABLE TO SIT UP IN CHAIR D/T DECONDITIONING.UNABLE TO GO DOWN FOR MODIFIED. CHRISTIN AWARE. ORDERS RECIEVED PER SPEECH EVAL DONE BY THERAPIST.
--- NOTE | 2019-11-07 13:09 | NUR ---
SPEECH PATHOLOGY Patient seen for clinical bedside swallow evaluation on this date. Modified barium swallow study originally ordered to assess swallowing function, however patient not able to tolerate sitting upright in chair for MBS. Patient currently on puree diet with nectar thick liquids. Nurse reported she tolerated current diet well. Oral [facility] exam revealed mild to moderate weakness of lingual and labial muscles with weak voicing. Patient is edentulous with weak volitional cough. Medical hx siginificant for HNT, DB, CVA, dysphagia, and dysarthria. Patient presented with nectar thick consistency and thin consistency liquids by cup. No signs/symptoms of aspiration. Initiation of swallow took place WNL and hyolaryngeal elevation observed. No gurgle or cough observed post swallow. Patient presented with puree consistency food by spoon. Inititation of swallow took place WNL and hyolaryngeal elevation observed. No signs/symptoms of aspiration. Patient presented with mechanical soft consistency food. Oral phase of swallow slightly prolonged due to patient taking large bite of food. Patient utlized tongue to effectively remove residue. No signs/symptoms of aspiration during swallow. Hyolaryngeal elevation observed. No gurgle or cough observed post swallow. Recommending upgrade of diet to thin liquids and soft consistency foods based on results of bedside swallow evaluation. Safe swallowing strategies reviewed with the patient such as sitting upright at 90 degrees while eating, taking small bites and small sips, and alternating foods and liquids. Patient verbalized understanding. Diet recommendations and safe swallow strategies reported to nurse who verbalized understanding. Follow up with speech therapy at meal time to ensure safe swallowing strategies. Jodee Ley M.S., CCC-ORACLE AGILE PLM CONSULTANT
[2019-11-07 16:00] VITALS: BP 92/43
--- NOTE | 2019-11-07 17:03 | NUR ---
PT HAVING LARGE, LOOSE,MUCOUSY,YELLOWISH/ KUNAL COLORED, FOUL SMELLING DIARRHEA X2.WITH C/O OF ABD PAIN.NOTIFIED DR YANG.ORDERS RECIEVED.SPOKE WITH DAUGHTER WHO STATED HER MOTHER HAD ONLY BEEN OUT OF FACILITY SINCE OCTOBER 23.PT HAS HAD INTERMITTENT BOUTS OF DIARRHEA BUT NO ABD PAIN SINCE TUESDAY.
[2019-11-07 20:00] VITALS: BP 134/74
--- NOTE | 2019-11-07 20:00 | NUR ---
Patient resting, awakes easily. Patient still has dinner in front of her, states she is to tired to eat right now and will eat when she wakes up. Patient took pill with pudding, denies any needs at this time. Patient left with call light in reach.
--- NOTE | 2019-11-07 23:20 | NUR ---
REPORT RECEIVED FROM SUKHJINDER ZAMUDIO. PT LYING IN BED WATCHING TV AT THIS TIME. VOICES NO COMPLAINTS. RESPIRATIONS EASY AND UNLABORED. CALL LIGHT IN REACH
[2019-11-08] VITALS: BP 99/59
--- NOTE | 2019-11-08 01:03 | NUR ---
24 HR chart check completed.
--- NOTE | 2019-11-08 02:00 | NUR ---
PT SLEEPING AT THIS TIME. NO S/S OF DISTRESS NOTED. CALL LIGHT IN REACH
--- NOTE | 2019-11-08 04:00 | NUR ---
PT SLEEPING, CALL LIGHT IN REACH
--- NOTE | 2019-11-08 07:41 | NUR ---
PATIENT IS ACCEPTED TO [facility]. PATIENT CAN GO WHEN MEDICALLY STABLE.
[2019-11-08 08:00] VITALS: BP 122/64
--- NOTE | 2019-11-08 08:30 | NUR ---
PT RESTING IN BED. RESP EASY AND REGULAR ON RA. DENIES C/O AT PRESENT. CALL LIGHT IN RWACH. WILL MONITOR.
--- NOTE | 2019-11-08 08:44 | NUR ---
NEWSPAPER DELIVERY DRIVER COMPLETED HENS.
--- NOTE | 2019-11-08 09:00 | NUR ---
patient will be discharged to [facility] today, social group worker will make transportation arrangements
--- NOTE | 2019-11-08 09:25 | NUR ---
OT NOTE Pt was seen this A.M. 1:1 for 25 minute OT session. Upon arrival pt was supine in bed. Pt identified by name and and had complaints of feeling nauseated. Pt presented to therapy with continuous 2L-O2 via NC which she remained on throughout the entire session. Pt's B socks were donned with maxA for her R leg and modA for her L leg. She then transferred supine to sit EOB with maxA X 2. Pt tolerated sitting EOB for aprox 10 minutes. She was then given a hairbrush and completed hair care with Leonid due to being unable to reach the back. Sit to stand then completed from bed level with modA X 2 followed by side shuffle to the head of the bed. Challenged pt's static standing tolerance needed for increased I and enhanced safety, pt was able to tolerate aprox 20 seconds before sitting. Once seated at the EOB pt spit up a little amount of water. Pt transferred back into bed sit to supine with maxA X 2. There she was left with call light in hand, tray table in place, and bed alarm activated for safety. Continue with rec D/C plan to SNF. PAPO Barrera/Gilberto
--- NOTE | 2019-11-08 09:35 | NUR ---
PHYSICAL THERAPY Patient seen this am 1;1 for therapy visit and was supine in bed upon therapist arrival. Patient identified by name / and was joined by OT pharmacy affairs assistant for observation this session. Patient presented with continuos O2-2L via NC and reports feeling increased Nausea this morning. Patient performed several supine B LE therex, x 10 reps each, including ankle pumps, heel slide, SLR x 2 demonstrating limited R knee flexion secondary to pain c/o. Patient transfers supine to sit EOB with MAX A x 2, tolerating 5-6 minutes static EOB sit without c/o. Patient also able to complete sit to stand transfer, MOD A x 2, with side step to Left side by sliding her feet due to increased difficulty picking up her feet. Patient presented with Flaccid R UE and R LE weakness, returning to supine in bed with MAX A. Patient remained in bed with call light, tray table and bed alarm for safety. Will continue per POC as tolerated, total treatment time 14 minutes. Sidney Hidalgo, PANEL SEWER
[2019-11-08] MEDS ORDERED: ZITHROMAX200 MG/5 M PO (10:58)
--- NOTE | 2019-11-08 10:59 | NUR ---
INCOME TAX AUDITOR SPOKE WITH ROBB SHARMA ABOUT DISCHARGE. INCOME TAX AUDITOR SPOKE WITH CARA LYNN TO ARRANGE A 1PM TRANSPORT TO [facility]. INCOME TAX AUDITOR NOTIFIED RAMON SHARMA, [facility], AND PATIENTS DAUGHTER MAXINE. INCOME TAX AUDITOR TO FAX DISCHARGE ORDERS TO [facility] AND TO FAX DEMOGRAPHICS TO [facility].
[2019-11-08] MEDS ORDERED: METRONIDAZOLE500 M1 PO (11:24)
[2019-11-08 12:00] VITALS: BP 103/50
--- NOTE | 2019-11-08 12:45 | NUR ---
SPEECH THERAPY Patient seen on this date for follow up with speech therapy during meal following beside swallow evaluation yesterday 11/07/19. Patient's diet was upgraded to thin liquids with soft consistency foods during most recent evaluation. Patient fed self pudding, cottage cheese, and diced fruit by spoon with no difficulties. No overt signs of aspiration, hyolaryngeal elevation observed, no anterior spillage, no oral residue. Slightly prolonged mastication of fruit due to edentulous status. Patient drank thin consistency water and soda by cup with no difficulties. No overt signs of aspiration, no anterior spillage. Vocal quality weak post swallow but no gurgle observed. Recommending to continue diet of thin liquids and soft foods. Safe swallowing strategies such as: sitting at 90 degree angle at mealtimes, alternating foods and liquids, taking small bites and sips, and fully chewing foods before swallowing. Recommended diet and safe swallowing strategies explained to patient, patient's daughter, and nurse. All verbalized understanding. Thank you for this referral. Jodee Ley M.S., CCC-RESEARCH NEUROPSYCHOLOGIST
--- NOTE | 2019-11-08 13:55 | NUR ---
MSDIS Discharge instructions reviewed with patient/family. Patient receptive and verbalizes understanding. Follow-up care arranged. Written instructions given to patient/family. ZACHARY EPSTEIN
--- NOTE | 2019-11-08 14:57 | NUR ---
PHYSICAL THERAPY CO-SIGN I approve of the Physical Therapy notes written above. RICHARD FELIX, PT, DPT
--- NOTE | 2019-11-08 15:00 | NUR ---
OCCUPATIONAL THERAPY CO-SIGN I approve of the Occupational Therapy notes written above. Sarah Barbosa OTR/L
== END 2019-11-08 13:55 | disposition other institution (70) | DRG 391 ==
LOC: ED 12:46 → EDHOLD 15:06 → 5E 15:06
PROVIDERS: Emergency Medicine; Registered Nurse; Student in an Organized Health Care Education/Training Program; ADMIT Emergency Medicine
DX: K57.92 Diverticulitis of intestine, part unspecified, without perforation or abscess without bleeding (principal); N17.0 Acute kidney failure with tubular necrosis; E44.0 Moderate protein-calorie malnutrition; K21.9 Gastro-esophageal reflux disease without esophagitis; R33.9 Retention of urine, unspecified; R13.10 Dysphagia, unspecified; I10 Essential (primary) hypertension; I48.0 Paroxysmal atrial fibrillation; E11.65 Type 2 diabetes mellitus with hyperglycemia; E11.51 Type 2 diabetes mellitus with diabetic peripheral angiopathy without gangrene; F32.9 Major depressive disorder, single episode, unspecified; Z86.73 Personal history of transient ischemic attack (TIA), and cerebral infarction without residual deficits; Z90.49 Acquired absence of other specified parts of digestive tract; Z90.710 Acquired absence of both cervix and uterus; Z96.652 Presence of left artificial knee joint; Z90.5 Acquired absence of kidney; Z83.3 Family history of diabetes mellitus; Z82.49 Family history of ischemic heart disease and other diseases of the circulatory system; Z82.0 Family history of epilepsy and other diseases of the nervous system; Z83.6 Family history of other diseases of the respiratory system; Z79.4 Long term (current) use of insulin; Z79.899 Other long term (current) drug therapy; Z88.0 Allergy status to penicillin; Z88.5 Allergy status to narcotic agent; Z68.36 Body mass index [BMI] 36.0-36.9, adult; Z20.828 Contact with and (suspected) exposure to other viral communicable diseases

== ENCOUNTER 2019-11-13 11:20 | Emergency (ER) | payer MEDICARE, MEDICAID ==
[~2019-11-13 11:20] MED LIST changes: +BACLOFEN5 MG PO; +CHLORTHALIDONE25 MG PO; +COREG12.5 M1 PO; +HEARTBURN RELIE10 MG PO; +K-TAB20 MEQ PO; +METRONIDAZOLE500 M1 PO; +SENNA8.6 MG PO; +TYLENOL325 M3 PO; +ZITHROMAX200 MG/5 M PO
[2019-11-13 11:59] LABS: BASO % 0.1 % (0.0-1.0); EOS # 0.1 10*3/uL (0.0-0.4); EOS % 1.1 % (1.0-4.0); HEMATOCRIT 38.6 % (37.0-47.0); LYMPH # 1.3 10*3/uL (1.3-4.4); LYMPH % 19.2 % (27.0-41.0); MEAN CELL VOLUME 82.5 fl (81.0-99.0); MEAN CORPUSCULAR HGB 26.1 pg (27.0-31.0); MEAN CORPUSCULAR HGB CONC 31.6 g/dl (33.0-37.0); MONO # 0.5 10*3/uL (0.1-1.0); MONO % 6.9 % (3.0-9.0); NEUT # 5.1 10*3/uL (2.3-7.9); NEUT % 72.6 % (47.0-73.0); PLATELET COUNT AUTOMATED 161 10*3/uL (130-400); RED BLOOD COUNT 4.68 10*6/uL (4.10-5.10); RED CELL DISTRI WIDTH 21.6 % (0-14.5)
[2019-11-13 12:12] LABS: CREATININE 1.87 mg/dL (0.55-1.02); POTASSIUM 4.1 mmol/L (3.5-5.1); TOTAL PROTEIN 6.7 gm/dL (6.4-8.2)
[2019-11-13 12:13] LABS: ACT PARTIAL THROMBO TIME 27.3 SECONDS (20.0-32.1); INTERNATIONAL NORM RATIO 1.2 (2.0-3.5)
[2019-11-13 14:34] LABS: BILIRUBIN NEGATIVE (NEGATIVE); BLOOD 1+ (NEGATIVE); CLARITY CLOUDY (CLEAR); COLOR BROWN (YELLOW); GLUCOSE NEGATIVE (NEGATIVE); KETONE NEGATIVE (NEGATIVE); LEUKO ESTERASE 2+ (NEGATIVE); NITRITE POSITIVE (NEGATIVE); UROBILINOGEN 0.2 E.U./dl (0.2-1.0)
[2019-11-13 14:39] LABS: RBC 21-30 rbc/hpf (0-2); URIC ACID CRYSTALS 1+; WBC TNTC wbc/hpf (0-5)
[2019-11-13 14:40] LABS: BACTERIA 3+
[2019-11-13 18:57] VITALS: BP 103/44
[2019-11-13] MEDS ORDERED: LEVOFLOXACIN500 MG PO (19:20)
== END 2019-11-13 19:32 | disposition home or self-care (01) ==
LOC: ED 11:20
PROVIDERS: Emergency Medicine
DX: N39.0 Urinary tract infection, site not specified (principal); I10 Essential (primary) hypertension; E11.9 Type 2 diabetes mellitus without complications; I48.91 Unspecified atrial fibrillation

== ENCOUNTER 2019-11-28 10:18 | Emergency (ER) | payer MEDICARE, MEDICAID ==
[~2019-11-28] VITALS: Wt 109.3 kg
[~2019-11-28 10:18] MED LIST changes: +LEVOFLOXACIN500 MG PO
[2019-11-28 11:25] LABS: EOS # 0.1 10*3/uL (0.0-0.4); HEMATOCRIT 37.1 % (37.0-47.0); LYMPH # 1.4 10*3/uL (1.3-4.4); LYMPH % 27.3 % (27.0-41.0); MEAN CELL VOLUME 84.1 fl (81.0-99.0); MEAN CORPUSCULAR HGB 26.3 pg (27.0-31.0); MEAN CORPUSCULAR HGB CONC 31.3 g/dl (33.0-37.0); MONO # 0.4 10*3/uL (0.1-1.0); MONO % 7.5 % (3.0-9.0); NEUT # 3.2 10*3/uL (2.3-7.9); PLATELET COUNT AUTOMATED 152 10*3/uL (130-400); RED BLOOD COUNT 4.41 10*6/uL (4.10-5.10); RED CELL DISTRI WIDTH 21.2 % (0-14.5); WHITE BLOOD COUNT 5.1 10*3/uL (4.8-10.8)
[2019-11-28 11:38] LABS: ALBUMIN 2.6 gm/dl (3.1-4.5); CREATININE 1.18 mg/dL (0.55-1.02); POTASSIUM 3.5 mmol/L (3.5-5.1); TOTAL PROTEIN 6.2 gm/dL (6.4-8.2)
[2019-11-28 13:20] VITALS: BP 117/62
== END 2019-11-28 13:27 | disposition other institution (70) ==
LOC: ED 10:18
PROVIDERS: Emergency Medicine
DX: R07.9 Chest pain, unspecified (principal); R06.02 Shortness of breath; R05 Cough; M79.604 Pain in right leg; I10 Essential (primary) hypertension; E11.9 Type 2 diabetes mellitus without complications; I48.91 Unspecified atrial fibrillation; Z88.0 Allergy status to penicillin; Z88.6 Allergy status to analgesic agent; Z88.8 Allergy status to other drugs, medicaments and biological substances; Z79.899 Other long term (current) drug therapy; Z79.4 Long term (current) use of insulin; Z86.73 Personal history of transient ischemic attack (TIA), and cerebral infarction without residual deficits

== ENCOUNTER 2019-12-07 09:24 | Emergency (ER) | payer MEDICARE, MEDICAID ==
[~2019-12-07] VITALS: Ht 172.7 cm; Wt 113.4 kg
[2019-12-07 09:30] VITALS: BP 130/64
[2019-12-07 09:53] LABS: BASO % 0.2 % (0.0-1.0); EOS # 0.2 10*3/uL (0.0-0.4); EOS % 3.3 % (1.0-4.0); HEMATOCRIT 36.7 % (37.0-47.0); LYMPH # 1.5 10*3/uL (1.3-4.4); LYMPH % 25.9 % (27.0-41.0); MEAN CELL VOLUME 84.6 fl (81.0-99.0); MEAN CORPUSCULAR HGB 26.7 pg (27.0-31.0); MEAN CORPUSCULAR HGB CONC 31.6 g/dl (33.0-37.0); MONO # 0.4 10*3/uL (0.1-1.0); MONO % 6.2 % (3.0-9.0); NEUT # 3.7 10*3/uL (2.3-7.9); NEUT % 64.2 % (47.0-73.0); PLATELET COUNT AUTOMATED 170 10*3/uL (130-400); RED BLOOD COUNT 4.34 10*6/uL (4.10-5.10); RED CELL DISTRI WIDTH 20.7 % (0-14.5); WHITE BLOOD COUNT 5.7 10*3/uL (4.8-10.8)
[2019-12-07 10:03] LABS: INTERNATIONAL NORM RATIO 1.1 (2.0-3.5)
[2019-12-07 10:15] LABS: ALBUMIN 2.7 gm/dl (3.1-4.5); ALKALINE PHOSPHATASE 69 U/L (45-117); BUN 16 mg/dl (7-24); CHLORIDE 108 mmol/L (98-107); CREATININE 1.14 mg/dL (0.55-1.02); POTASSIUM 4.1 mmol/L (3.5-5.1); SGOT/AST 18 IU/L (3-35); SGPT/ALT 21 U/L (12-78); SODIUM 141 mmol/L (136-145); TOTAL PROTEIN 6.4 gm/dL (6.4-8.2); TROPONIN I < 0.015 ng/ml (<0.045)
[2019-12-07] MEDS ORDERED: ULTRAM50 MG PO (12:24)
== END 2019-12-07 12:33 | disposition home or self-care (01) ==
LOC: ED 09:24
PROVIDERS: Nurse Practitioner Family
DX: M79.641 Pain in right hand (principal); I10 Essential (primary) hypertension; E11.9 Type 2 diabetes mellitus without complications; I48.91 Unspecified atrial fibrillation; Z86.73 Personal history of transient ischemic attack (TIA), and cerebral infarction without residual deficits; Z88.0 Allergy status to penicillin; Z88.5 Allergy status to narcotic agent; Z88.8 Allergy status to other drugs, medicaments and biological substances; Z79.899 Other long term (current) drug therapy; Z79.4 Long term (current) use of insulin

== ENCOUNTER 2019-12-12 04:15 | Emergency (ER) | payer MEDICARE, MEDICAID ==
[~2019-12-12] VITALS: Ht 165.1 cm; Wt 117.9 kg
[~2019-12-12 04:15] MED LIST changes: +ULTRAM50 MG PO
[2019-12-12 04:44] LABS: BASO % 0.1 % (0.0-1.0); EOS # 0.2 10*3/uL (0.0-0.4); EOS % 2.5 % (1.0-4.0); HEMATOCRIT 37.7 % (37.0-47.0); LYMPH # 1.8 10*3/uL (1.3-4.4); LYMPH % 24.4 % (27.0-41.0); MEAN CELL VOLUME 85.9 fl (81.0-99.0); MEAN CORPUSCULAR HGB 26.9 pg (27.0-31.0); MEAN CORPUSCULAR HGB CONC 31.3 g/dl (33.0-37.0); MEAN PLATELET VOLUME 12.8 fl (9.6-12.3); MONO # 0.6 10*3/uL (0.1-1.0); MONO % 7.6 % (3.0-9.0); NEUT # 4.7 10*3/uL (2.3-7.9); NEUT % 65.3 % (47.0-73.0); PLATELET COUNT AUTOMATED 205 10*3/uL (130-400); RED BLOOD COUNT 4.39 10*6/uL (4.10-5.10); RED CELL DISTRI WIDTH 20.4 % (0-14.5); WHITE BLOOD COUNT 7.2 10*3/uL (4.8-10.8)
[2019-12-12 04:56] LABS: ACT PARTIAL THROMBO TIME 27.3 SECONDS (20.0-32.1); INTERNATIONAL NORM RATIO 1.1 (2.0-3.5)
[2019-12-12 05:02] VITALS: BP 124/58
[2019-12-12 05:03] LABS: ALBUMIN 2.8 gm/dl (3.1-4.5); ALKALINE PHOSPHATASE 69 U/L (45-117); BUN 19 mg/dl (7-24); CHLORIDE 105 mmol/L (98-107); CKMB < 1.0 ng/ml (0.5-3.6); CPK 38 U/L (26-192); CREATININE 1.53 mg/dL (0.55-1.02); SGOT/AST 21 IU/L (3-35); SGPT/ALT 20 U/L (12-78); SODIUM 139 mmol/L (136-145); TOTAL PROTEIN 6.5 gm/dL (6.4-8.2)
[2019-12-12 05:08] LABS: TROPONIN I < 0.015 ng/ml (<0.045)
[2019-12-12] MEDS ORDERED: PERCOCET 5-3251 EACH PO (05:35)
[2019-12-12] MEDS ORDERED: SENNA8.6 MG PO (23:06)
[2019-12-12] MEDS ORDERED: SIMVASTATIN10 MG PO (23:07)
[2019-12-12] MEDS ORDERED: PROTONIX40 MG PO (23:09)
[2019-12-12] MEDS ORDERED: GABAPENTIN100 M2 PO (23:10)
[2019-12-12] MEDS ORDERED: LIDOCAINE HCL 330 M1 T (23:13)
== END 2019-12-12 06:34 | disposition other institution (70) ==
LOC: ED 04:15
PROVIDERS: Emergency Medicine
DX: G62.9 Polyneuropathy, unspecified (principal); I10 Essential (primary) hypertension; E11.9 Type 2 diabetes mellitus without complications; I48.91 Unspecified atrial fibrillation; Z86.73 Personal history of transient ischemic attack (TIA), and cerebral infarction without residual deficits; Z88.0 Allergy status to penicillin; Z88.8 Allergy status to other drugs, medicaments and biological substances; Z79.899 Other long term (current) drug therapy

== ENCOUNTER 2019-12-12 15:25 | Inpatient (IN) | payer MEDICARE, MEDICAID ==
[~2019-12-12] VITALS: Ht 172.7 cm; Wt 105.7 kg
[~2019-12-12 15:25] MED LIST changes: +PERCOCET 5-3251 EACH PO
[2019-12-12 15:41] VITALS: BP 90/45
[2019-12-12 15:43] LABS: BASO % 0.2 % (0.0-1.0); EOS # 0.2 10*3/uL (0.0-0.4); HEMATOCRIT 36.1 % (37.0-47.0); LYMPH # 1.8 10*3/uL (1.3-4.4); LYMPH % 27.9 % (27.0-41.0); MEAN CORPUSCULAR HGB 26.9 pg (27.0-31.0); MEAN CORPUSCULAR HGB CONC 31.3 g/dl (33.0-37.0); MEAN PLATELET VOLUME 12.5 fl (9.6-12.3); MONO # 0.5 10*3/uL (0.1-1.0); MONO % 7.2 % (3.0-9.0); NEUT % 61.5 % (47.0-73.0); PLATELET COUNT AUTOMATED 198 10*3/uL (130-400); RED CELL DISTRI WIDTH 20.5 % (0-14.5); WHITE BLOOD COUNT 6.4 10*3/uL (4.8-10.8)
[2019-12-12 15:50] VITALS: BP 92/56
[2019-12-12 15:55] LABS: ACT PARTIAL THROMBO TIME 27.5 SECONDS (20.0-32.1); INTERNATIONAL NORM RATIO 1.1 (2.0-3.5)
[2019-12-12 16:01] LABS: ALBUMIN 2.8 gm/dl (3.1-4.5); ALKALINE PHOSPHATASE 71 U/L (45-117); BUN 20 mg/dl (7-24); CHLORIDE 105 mmol/L (98-107); CREATININE 1.65 mg/dL (0.55-1.02); POTASSIUM 3.9 mmol/L (3.5-5.1); SGOT/AST 22 IU/L (3-35); SGPT/ALT 19 U/L (12-78); SODIUM 138 mmol/L (136-145); TOTAL PROTEIN 6.8 gm/dL (6.4-8.2)
[2019-12-12 16:03] LABS: TROPONIN I < 0.015 ng/ml (<0.045)
[2019-12-12 18:59] VITALS: BP 102/58
[2019-12-12 20:22] VITALS: BP 110/58
[2019-12-12 21:55] VITALS: BP 112/60
[2019-12-12 22:06] VITALS: BP 123/63
[2019-12-12] MEDS ORDERED: SENNA8.6 MG PO (23:06)
[2019-12-12] MEDS ORDERED: SIMVASTATIN10 MG PO (23:07)
[2019-12-12] MEDS ORDERED: PROTONIX40 MG PO (23:09)
[2019-12-12] MEDS ORDERED: GABAPENTIN100 M2 PO (23:10)
[2019-12-12] MEDS ORDERED: LIDOCAINE HCL 330 M1 T (23:13)
[2019-12-13 06:08] LABS: BASO % 0.2 % (0.0-1.0); EOS # 0.2 10*3/uL (0.0-0.4); EOS % 2.5 % (1.0-4.0); HEMATOCRIT 34.1 % (37.0-47.0); MEAN CELL VOLUME 86.8 fl (81.0-99.0); MEAN CORPUSCULAR HGB CONC 31.1 g/dl (33.0-37.0); MEAN PLATELET VOLUME 12.4 fl (9.6-12.3); MONO # 0.4 10*3/uL (0.1-1.0); MONO % 6.2 % (3.0-9.0); NEUT # 3.9 10*3/uL (2.3-7.9); NEUT % 59.9 % (47.0-73.0); PLATELET COUNT AUTOMATED 182 10*3/uL (130-400); RED BLOOD COUNT 3.93 10*6/uL (4.10-5.10); WHITE BLOOD COUNT 6.4 10*3/uL (4.8-10.8)
[2019-12-13 06:16] LABS: ALBUMIN 2.6 gm/dl (3.1-4.5); CREATININE 1.42 mg/dL (0.55-1.02); TOTAL PROTEIN 6.3 gm/dL (6.4-8.2)
[2019-12-13 06:23] LABS: THYROID STIM HORMONE (HS) 1.3 uIU/ml (0.358-4.75)
[2019-12-13 09:38] VITALS: BP 112/60
[2019-12-13 10:53] LABS: BILIRUBIN NEGATIVE (NEGATIVE); BLOOD NEGATIVE (NEGATIVE); CLARITY SL CLOUDY (CLEAR); COLOR YELLOW (YELLOW); GLUCOSE NEGATIVE (NEGATIVE); KETONE NEGATIVE (NEGATIVE); LEUKO ESTERASE 1+ (NEGATIVE); NITRITE NEGATIVE (NEGATIVE); UROBILINOGEN 0.2 E.U./dl (0.2-1.0)
[2019-12-13 11:02] LABS: BACTERIA 4+; WBC 16-20 wbc/hpf (0-5)
[2019-12-13 12:00] VITALS: BP 120/64
[2019-12-13 16:00] VITALS: BP 103/61
[2019-12-13 20:00] VITALS: BP 111/67
[2019-12-14] VITALS: BP 153/90
[2019-12-14 02:10] VITALS: BP 124/70
[2019-12-14 06:23] LABS: BASO % 0.2 % (0.0-1.0); EOS # 0.1 10*3/uL (0.0-0.4); EOS % 2.5 % (1.0-4.0); HEMATOCRIT 33.9 % (37.0-47.0); LYMPH # 1.2 10*3/uL (1.3-4.4); LYMPH % 22.4 % (27.0-41.0); MEAN CELL VOLUME 87.4 fl (81.0-99.0); MEAN CORPUSCULAR HGB 27.3 pg (27.0-31.0); MEAN CORPUSCULAR HGB CONC 31.3 g/dl (33.0-37.0); MEAN PLATELET VOLUME 12.9 fl (9.6-12.3); MONO # 0.4 10*3/uL (0.1-1.0); MONO % 7.9 % (3.0-9.0); NEUT # 3.7 10*3/uL (2.3-7.9); NEUT % 66.5 % (47.0-73.0); PLATELET COUNT AUTOMATED 166 10*3/uL (130-400); RED BLOOD COUNT 3.88 10*6/uL (4.10-5.10); RED CELL DISTRI WIDTH 19.7 % (0-14.5); WHITE BLOOD COUNT 5.5 10*3/uL (4.8-10.8)
[2019-12-14 06:47] LABS: ALBUMIN 2.5 gm/dl (3.1-4.5); BUN 16 mg/dl (7-24); CHLORIDE 110 mmol/L (98-107); CREATININE 1.08 mg/dL (0.55-1.02); POTASSIUM 3.2 mmol/L (3.5-5.1); SGOT/AST 18 IU/L (3-35); SGPT/ALT 20 U/L (12-78); SODIUM 140 mmol/L (136-145)
[2019-12-14 06:48] LABS: ALKALINE PHOSPHATASE 71 U/L (45-117); TOTAL PROTEIN 5.9 gm/dL (6.4-8.2)
[2019-12-14 08:00] VITALS: BP 134/70
[2019-12-14 12:00] VITALS: BP 130/73
[2019-12-14 16:00] VITALS: BP 136/63
== END 2019-12-14 18:56 | disposition short-term general hospital (02) | DRG 64 ==
LOC: ED 15:25 → 5E 17:26 → EDHOLD 17:26 → 5E 18:00 → EDHOLD 19:33 → 5E 21:10
PROVIDERS: Emergency Medicine; Internal Medicine; Nurse Practitioner Adult Health; Student in an Organized Health Care Education/Training Program; ADMIT Internal Medicine
DX: I63.81 Other cerebral infarction due to occlusion or stenosis of small artery (principal); N17.0 Acute kidney failure with tubular necrosis; E44.0 Moderate protein-calorie malnutrition; I69.351 Hemiplegia and hemiparesis following cerebral infarction affecting right dominant side; F33.2 Major depressive disorder, recurrent severe without psychotic features; E86.0 Dehydration; I95.89 Other hypotension; E86.1 Hypovolemia; R19.7 Diarrhea, unspecified; M79.89 Other specified soft tissue disorders; M25.461 Effusion, right knee; E11.65 Type 2 diabetes mellitus with hyperglycemia; I10 Essential (primary) hypertension; I48.91 Unspecified atrial fibrillation; K21.9 Gastro-esophageal reflux disease without esophagitis; D64.9 Anemia, unspecified; Z96.652 Presence of left artificial knee joint; R10.13 Epigastric pain; F41.9 Anxiety disorder, unspecified; E66.01 Morbid (severe) obesity due to excess calories; R70.0 Elevated erythrocyte sedimentation rate; Z88.0 Allergy status to penicillin; Z88.5 Allergy status to narcotic agent; Z88.8 Allergy status to other drugs, medicaments and biological substances; Z90.49 Acquired absence of other specified parts of digestive tract; Z90.710 Acquired absence of both cervix and uterus; Z90.5 Acquired absence of kidney; Z82.5 Family history of asthma and other chronic lower respiratory diseases; Z82.49 Family history of ischemic heart disease and other diseases of the circulatory system; Z82.0 Family history of epilepsy and other diseases of the nervous system; Z84.1 Family history of disorders of kidney and ureter; Z83.79 Family history of other diseases of the digestive system; Z82.3 Family history of stroke; Z91.81 History of falling; Z86.711 Personal history of pulmonary embolism; Z79.899 Other long term (current) drug therapy; Z03.818 Encounter for observation for suspected exposure to other biological agents ruled out; Z68.35 Body mass index [BMI] 35.0-35.9, adult

== ENCOUNTER 2020-01-12 16:14 | Emergency (ER) | payer MEDICARE, MEDICAID ==
[~2020-01-12] VITALS: Ht 170.1 cm; Wt 136.1 kg
[~2020-01-12 16:14] MED LIST changes: +GABAPENTIN100 M2 PO; +LIDOCAINE HCL 330 M1 T; +PROTONIX40 MG PO; +SIMVASTATIN10 MG PO
[2020-01-12 16:33] LABS: BILIRUBIN NEGATIVE; BLOOD 2+ (NEGATIVE); CLARITY TURBID (CLEAR); COLOR YELLOW (YELLOW); GLUCOSE NEGATIVE; KETONE NEGATIVE; LEUKO ESTERASE 3+ (NEGATIVE); NITRITE NEGATIVE (NEGATIVE); PH 5.5 (4.5-8.0)
[2020-01-12 16:42] LABS: BACTERIA 2+; WBC TNTC wbc/hpf (0-5)
[2020-01-12 17:05] LABS: EOS # 0.2 10*3/uL (0.0-0.4); EOS % 3.5 % (1.0-4.0); HEMATOCRIT 31.7 % (37.0-47.0); LYMPH # 1.7 10*3/uL (1.3-4.4); LYMPH % 30.1 % (27.0-41.0); MEAN CELL VOLUME 90.1 fl (81.0-99.0); MEAN CORPUSCULAR HGB 28.7 pg (27.0-31.0); MEAN CORPUSCULAR HGB CONC 31.9 g/dl (33.0-37.0); MEAN PLATELET VOLUME 11.7 fl (9.6-12.3); MONO # 0.4 10*3/uL (0.1-1.0); MONO % 7.5 % (3.0-9.0); NEUT # 3.2 10*3/uL (2.3-7.9); NEUT % 58.7 % (47.0-73.0); PLATELET COUNT AUTOMATED 200 10*3/uL (130-400); RED BLOOD COUNT 3.52 10*6/uL (4.10-5.10); RED CELL DISTRI WIDTH 16.8 % (0-14.5); WHITE BLOOD COUNT 5.5 10*3/uL (4.8-10.8)
[2020-01-12 17:16] LABS: ACT PARTIAL THROMBO TIME 31.5 SECONDS (20.0-32.1); INTERNATIONAL NORM RATIO 1.2 (2.0-3.5)
[2020-01-12 17:21] LABS: ALBUMIN 2.5 gm/dl (3.1-4.5); ALKALINE PHOSPHATASE 78 U/L (45-117); BUN 20 mg/dl (7-24); CHLORIDE 110 mmol/L (98-107); CREATININE 1.28 mg/dL (0.55-1.02); POTASSIUM 4.4 mmol/L (3.5-5.1); SGOT/AST 13 IU/L (3-35); SGPT/ALT 18 U/L (12-78); SODIUM 142 mmol/L (136-145); TOTAL PROTEIN 6.1 gm/dL (6.4-8.2)
[2020-01-12 17:22] LABS: TROPONIN I < 0.015 ng/ml (<0.045)
[2020-01-12 19:16] VITALS: BP 110/42
== END 2020-01-12 20:00 | disposition short-term general hospital (02) ==
LOC: ED 16:14
PROVIDERS: Emergency Medicine; Nurse Practitioner
DX: I63.9 Cerebral infarction, unspecified (principal); G45.9 Transient cerebral ischemic attack, unspecified; N39.0 Urinary tract infection, site not specified; Z88.0 Allergy status to penicillin; Z88.6 Allergy status to analgesic agent; Z88.8 Allergy status to other drugs, medicaments and biological substances; Z79.899 Other long term (current) drug therapy; Z79.4 Long term (current) use of insulin

== ENCOUNTER 2020-03-14 14:21 | Emergency (ER) | payer MEDICARE, MEDICAID ==
[~2020-03-14] VITALS: Ht 165.1 cm; Wt 107.0 kg
[2020-03-14 16:17] VITALS: BP 144/75
== END 2020-03-14 17:38 | disposition other institution (70) ==
LOC: ED 14:21
DX: S00.83XA Contusion of other part of head, initial encounter (principal); Z88.0 Allergy status to penicillin; Z88.8 Allergy status to other drugs, medicaments and biological substances; Z88.5 Allergy status to narcotic agent; Z79.899 Other long term (current) drug therapy; Z79.4 Long term (current) use of insulin; Z90.49 Acquired absence of other specified parts of digestive tract; W19.XXXA Unspecified fall, initial encounter; Y93.89 Activity, other specified; Y92.89 Other specified places as the place of occurrence of the external cause; Y99.8 Other external cause status

== ENCOUNTER 2020-03-21 16:22 | Emergency (ER) | payer MEDICARE ==
[~2020-03-21] VITALS: Ht 172.7 cm; Wt 105.7 kg
[2020-03-21 16:26] VITALS: BP 98/50
[2020-03-22] MEDS ORDERED: KEPPRA500 MG PO (20:12)
[2020-03-22] MEDS ORDERED: CHLORTHALIDONE25 MG PO (20:18)
[2020-03-22] MEDS ORDERED: COZAAR100 MG PO (20:19)
[2020-03-22] MEDS ORDERED: CYMBALTA60 MG PO (20:20)
[2020-03-22] MEDS ORDERED: LIPITOR40 MG PO (20:21)
[2020-03-22] MEDS ORDERED: GLUCOPHAGE500 M1 PO (20:21)
[2020-03-22] MEDS ORDERED: MIRTAZAPINE15 M1 PO (20:21)
[2020-03-22] MEDS ORDERED: XARE20MG PO (20:22)
[2020-03-22] MEDS ORDERED: ASPIRIN CHEWABL81 MG PO (20:22)
[2020-03-22] MEDS ORDERED: IRON325 M1 PO (20:24)
== END 2020-03-21 23:47 | disposition admitted as inpatient to this hospital (09) ==
LOC: ED 16:22 → EDHOLD 22:26 → ED 22:26
DX: S82.141A Displaced bicondylar fracture of right tibia, initial encounter for closed fracture (principal); S00.83XA Contusion of other part of head, initial encounter; Z88.0 Allergy status to penicillin; Z88.8 Allergy status to other drugs, medicaments and biological substances; Z79.4 Long term (current) use of insulin; Z79.899 Other long term (current) drug therapy; X58.XXXA Exposure to other specified factors, initial encounter; Y93.89 Activity, other specified; Y92.89 Other specified places as the place of occurrence of the external cause; Y99.8 Other external cause status

== ENCOUNTER 2020-03-22 19:15 | Inpatient (IN) | payer MEDICARE ==
[~2020-03-22] VITALS: Ht 170.2 cm; Wt 109.9 kg
[2020-03-22 19:18] VITALS: BP 107/51
[2020-03-22] MEDS ORDERED: KEPPRA500 MG PO (20:12)
[2020-03-22 20:16] LABS: BASO % 0.1 % (0.0-1.0); EOS # 0.2 10*3/uL (0.0-0.4); EOS % 2.6 % (1.0-4.0); HEMATOCRIT 33.7 % (37.0-47.0); LYMPH # 1.3 10*3/uL (1.3-4.4); LYMPH % 18.1 % (27.0-41.0); MEAN CELL VOLUME 92.1 fl (81.0-99.0); MEAN CORPUSCULAR HGB 27.9 pg (27.0-31.0); MEAN CORPUSCULAR HGB CONC 30.3 g/dl (33.0-37.0); MEAN PLATELET VOLUME 11.9 fl (9.6-12.3); MONO # 0.4 10*3/uL (0.1-1.0); NEUT # 5.2 10*3/uL (2.3-7.9); NEUT % 73.9 % (47.0-73.0); PLATELET COUNT AUTOMATED 232 10*3/uL (130-400); RED BLOOD COUNT 3.66 10*6/uL (4.10-5.10)
[2020-03-22] MEDS ORDERED: CHLORTHALIDONE25 MG PO (20:18)
[2020-03-22] MEDS ORDERED: COZAAR100 MG PO (20:19)
[2020-03-22] MEDS ORDERED: CYMBALTA60 MG PO (20:20)
[2020-03-22] MEDS ORDERED: GLUCOPHAGE500 M1 PO (20:21)
[2020-03-22] MEDS ORDERED: MIRTAZAPINE15 M1 PO (20:21)
[2020-03-22] MEDS ORDERED: LIPITOR40 MG PO (20:21)
[2020-03-22] MEDS ORDERED: XARE20MG PO (20:22)
[2020-03-22] MEDS ORDERED: ASPIRIN CHEWABL81 MG PO (20:22)
[2020-03-22] MEDS ORDERED: IRON325 M1 PO (20:24)
[2020-03-22 20:26] LABS: ACT PARTIAL THROMBO TIME 31.6 SECONDS (20.0-32.1); INTERNATIONAL NORM RATIO 1.1 (2.0-3.5)
[2020-03-22 20:30] LABS: ALBUMIN 3.1 gm/dl (3.1-4.5); CREATININE 1.59 mg/dL (0.55-1.02); POTASSIUM 4.3 mmol/L (3.5-5.1)
[2020-03-22 21:36] VITALS: BP 104/59
--- NOTE | 2020-03-22 22:07 | NUR ---
GAVE PT. WARM BLANKET. PT. RESTING IN BED WITH EYES CLOSED. RR EASY AND NON-LABORED. IN NO DISTRESS AT THIS TIME. WILL CONTINUE TO MONITOR. BG-[id number], NO COVERAGE NOTED.
--- NOTE | 2020-03-22 22:31 | NUR ---
PT. RESTING IN BED WITH EYES CLOSED. RR EASY AND NON-LABORED. IN NO DISTRESS AT THIS TIME. WILL CONTINUE TO MONITOR.
--- NOTE | 2020-03-22 23:15 | NUR ---
PT. RESTING IN BED WITH EYES CLOSED. RR EASY AND NON-LABORED. CALL LIGHT WITHIN REACH. WILL CONTINUE TO MONITOR.
[2020-03-23] VITALS (7 sets, daily range): BP systolic 119–149; BP diastolic 56–84
--- NOTE | 2020-03-23 00:49 | NUR ---
PT. RESTING IN BED WITH EYES CLOSED. RR EASY AND NON-LABORED. CALL LIGHT WITHIN REACH. WILL CONTINUE TO MONITOR.
--- NOTE | 2020-03-23 03:30 | NUR ---
PT. RESTING IN BED WITH EYES CLOSED. RR EASY AND NON-LABORED. CALL LIGHT WITHIN REACH. WILL CONTINUE TO MONITOR.
--- NOTE | 2020-03-23 05:31 | NUR ---
PT. RESTING IN BED WITH EYES CLOSED. RR EASY AND NON-LABORED. WILL CONTINUE TO MONITOR. WILL CONTINUE TO MONITOR.
--- NOTE | 2020-03-23 05:34 | NUR ---
PT. RESTING IN BED WITH EYES CLOSED. RR EASY AND NON-LABORED. CALL LIGHT WITHIN REACH. WILL CONTINUE TO MONITOR.
[2020-03-23 06:18] LABS: EOS # 0.1 10*3/uL (0.0-0.4); EOS % 2.7 % (1.0-4.0); HEMATOCRIT 31.6 % (37.0-47.0); LYMPH # 1.6 10*3/uL (1.3-4.4); LYMPH % 30.7 % (27.0-41.0); MEAN CELL VOLUME 91.3 fl (81.0-99.0); MEAN CORPUSCULAR HGB CONC 30.7 g/dl (33.0-37.0); MEAN PLATELET VOLUME 12.2 fl (9.6-12.3); MONO # 0.3 10*3/uL (0.1-1.0); MONO % 5.4 % (3.0-9.0); NEUT # 3.1 10*3/uL (2.3-7.9); PLATELET COUNT AUTOMATED 202 10*3/uL (130-400); RED BLOOD COUNT 3.46 10*6/uL (4.10-5.10); RED CELL DISTRI WIDTH 14.8 % (0-14.5); WHITE BLOOD COUNT 5.1 10*3/uL (4.8-10.8)
[2020-03-23 06:29] LABS: ALBUMIN 2.8 gm/dl (3.1-4.5); CREATININE 1.44 mg/dL (0.55-1.02); POTASSIUM 4.6 mmol/L (3.5-5.1); TOTAL PROTEIN 6.4 gm/dL (6.4-8.2)
[2020-03-23 06:35] LABS: FREE T4 1.18 ng/dl (0.76-1.46); THYROID STIM HORMONE (HS) 1.94 uIU/ml (0.358-4.75)
--- NOTE | 2020-03-23 10:03 | NUR ---
A 74, admitted to ICCU, under the services of JAIME Huntley DO with a diagnosis of RT. TIDIAL PLATEAU FRACTURE. Chief complaint is PAIN TO RT. LEG. FELL 2 WEEKS AGO, Patient arrived via from ER. Monitor applied. Initial assessment completed. Vital signs taken and recorded. JAIME HUNTLEY DO notified of admission to the unit. Orders received. See assessment for past medical history, medications and allergies. Patient and/or family oriented to unit. [facility] visitation policy reviewed. Clothing/patient valuable form completed. VANNA JIM
--- NOTE | 2020-03-23 11:00 | NUR ---
PHYSICAL THERAPY PT EVAL COMPLETED IN ICCU: FULL EVAL TO FOLLOW. WOULD RECOMMEND PT SERVICES WHILE HERE TO ADDRESS R KNEE PAIN WITH NEW DX OF TIB PLATEAU FX WITH WBAT ORDERS FROM DR TIMMONS. PT EVAL IS MODERATE COMPLEXITY:30932. ON EVAL WAS HAVING A LOT OF DISCOMFORT IN THE R KNEE BUT WAS ABLE TO COMPLETE SUPINE LYING LLE AROM AND SOME PASSIVE STRETCHING FOR THE R ANKLE WELL GLUTEAL SETS. ALSO DID SOME BED MOBILITY ROLLING L AND R WITH RAILING AND MOD OF 1 AND ASSISTED IN REPOSITIONING THE RLE TO A MORE COMFORTABLE POSITION. ON COMPLETION OF EVAL RESIDENT IN BED WITH CALL LIGHT IN REACH. THANK YOU FOR REFERRAL NAEEM BROWER PT
[2020-03-23] MEDS ORDERED: LANTUS SOL100 UNIT/1 SC (11:12)
[2020-03-23] MEDS ORDERED: VIMPAT50 MG PO (11:13)
[2020-03-23] MEDS ORDERED: VITAMIN D350 MC2 PO (11:15)
[2020-03-23] MEDS ORDERED: MIRALAX17 GM PO (11:16)
[2020-03-23] MEDS ORDERED: ZOFRAN4 MG PO (11:17)
--- NOTE | 2020-03-23 16:12 | NUR ---
PATIENT UNBLE TO USE OR FOLLOW INSTRUCTIONS FOR INCENTIVE SPIROMETER AT THE TIME REEVALUTE LATER.
--- NOTE | 2020-03-23 20:23 | NUR ---
PT. RESTING IN BED WATCHING TV. HEP LOCK IN RH ASYMPT. LUNGS DIMINISHED BUT CLEAR BILAT, PULSE OX 99% ON RA. ABDOMEN SOFTLY DISTENDED AND NORMO, OBESE. TRACE BLE EDEMA NOTED >RIGHT, BRACE TO RIGHT LEG NOTED. ICE TO RIGHT LEG FOR DISCOMFORT. IVF CONTINUE ORDERED VIA , SITE ASYMPT. NO COMPLAINTS VOICED.
--- NOTE | 2020-03-23 21:49 | NUR ---
NORCO GIVEN AT 2032 FOR COMPLAINTS OF LEG PAIN, RATED #10 ON 1-10 PAIN SCALE. PT. STATED NORCO EFFECTIVE FOR PAIN. MARIAN KOTHARI RN
--- NOTE | 2020-03-23 22:29 | NUR ---
PT'S BEDSIDE GLUC 85. PT. REMAINS W/D, ALERT AND ORIENTED x3. NIGHT SNACK GIVEN. MARIAN KOTHARI RN
--- NOTE | 2020-03-23 23:04 | NUR ---
PT. GIVEN MORPHINE ORDERED FOR COMPLAINTS OF RIGHT LEG PAIN, RATED 10 ON 1-10 PAIN SCALE.
--- NOTE | 2020-03-23 23:33 | NUR ---
PT. SLEEPING, MORPHINE EFFECTIVE FOR PAIN. MARIAN KOTHARI RN
[2020-03-24] VITALS: BP 96/42
[2020-03-24 05:36] LABS: BUN 26 mg/dl (7-24); CHLORIDE 111 mmol/L (98-107); CREATININE 1.05 mg/dL (0.55-1.02); POTASSIUM 3.8 mmol/L (3.5-5.1); SODIUM 142 mmol/L (136-145)
--- NOTE | 2020-03-24 07:27 | NUR ---
shift chart complete
--- NOTE | 2020-03-24 07:27 | NUR ---
SHIFT CHART CHECK COMPLETED.
[2020-03-24 08:09] VITALS: BP 111/51
--- NOTE | 2020-03-24 09:30 | NUR ---
Baling Machine Operator in to talk to patient. Patient states lives at home with her daughter. There are 0 steps in the home. Physician: Dr. Kristina Plummer Pharmacy: [facility] [place] [facility] services: currently has [facility] Patient's level of ADLs: MODERATE ASSIST Patient has working utilities: no DME: wheelchair Follow-up physician's appointment after d/c: will be made by the hospitalist nurse director upon discharge Does patient want to access PORTAL?: no Discharge plan discussed with patient. She lives at home with her daughter. She needs assistance with her ADLs and gets around in a wheelchair. Discussed short term SNF and she refuses. Discussed home health care services and she currently has a home health company but she doesn't know the name. She states to reach out to her daughter as she would know. When medically stable she will be discharged to home with the resumption of her [facility] services. She states she would like an ambulance to bring her home on discharge. Explained the discharge ambulance may not be covered. She verbalized an understanding. RICHARD SAMPSON
--- NOTE | 2020-03-24 09:45 | NUR ---
Spoke to daughter, Diana. Patient is active with [facility].
--- NOTE | 2020-03-24 10:59 | NUR ---
PHYSICAL THERAPY TREATMENT TIME: OUT 12:58 AM 20 MINUTES TOTAL Patient presented to therapy in supine with head of bed elevated and bed alarm on. Patient was identified by name and on wristband. Patient gives informed consent for treatment. Patient is NWB as tolerated on the R LE. Patient's RN was consulted by this TANK CHARGER and RN Shahnaz reported that her patient but is NWB on the R LE. Patient is on IV. Patient performed supine <> sitting on EOB with MAX A X 2 due to weakness on the L side of body, including L UE and L LE. Patient sat on EOB with CGA - MIN A X 2 to correct posterior lean. Patient performed Bilateral LE ther ex including L LAQs, marches, hip abduction and heel/toe raises 2 x 10 reps each and R LE marches and heel/toe raises with AAROM. Patient performed sit to supine in bed with MAX A X 2. Patient was scooted up to head of bed with MAX A X 2 using sheet. Patient left in supine in bed with head of bed elevated, call light within reach and bed alarm on. Patient was 1:1 with this TANK CHARGER for 20 minutes total. PAPO DIAZ present as witness to this treatment. LYLE JEROME PTA
--- NOTE | 2020-03-24 13:21 | NUR ---
PHYSICAL THERAPY TREATMENT TIME: 1:10 PM - 1:20 PM 10 MINUTES TOTAL Patient presented to therapy [facility] with head of bed elevated slightly. Patient is not on IVs at this time. Patient is not on telemetry wires. Patient gives informed consent for treatment. Patient was identified by name and on wristband. Patient performed supine bilateral LE ther ex 2 x 10 reps each in L LE SLRs in flexion, hip abduction, ANKLE PUMPS, heel slides for strengthening the LEs in order to improve patient's functional mobility. Patient tolerated ther ex well wit hno increased pain. Patient did complain of increased dizziness and not feeling well. Patient's complaint was reported to ROBB MOSS. Patient was left in supine in bed with head of bed elevated andf bed alarm on. Patient was 1:1 with this AUTO BODY MECHANIC for 10 minutes total. LYLE JEROME AUTO BODY MECHANIC
--- NOTE | 2020-03-24 15:40 | NUR ---
PT WITH SOME SLURRING SPEECH, SAYS FEELS LIKE I'M HAVING A STROKE L ARM HEAVY, DR BEY IN TO SEE PATIENT
[2020-03-24 16:32] VITALS: BP 107/55
[2020-03-24 20:00] VITALS: BP 123/73
--- NOTE | 2020-03-24 20:14 | NUR ---
PT WITHOUT COMPLAINTS. STILL WORKING ON HER DINNER TRAY.
[2020-03-25] VITALS: BP 114/78
--- NOTE | 2020-03-25 02:17 | NUR ---
PT APPEARS TO BE SLEEPING WITH EVEN, UNLABORED RESPIRATIONS.
[2020-03-25 04:45] VITALS: BP 129/57
--- NOTE | 2020-03-25 05:00 | NUR ---
AT APPROX 0445, PT UTILIZED CALL LIGHT FOR BEDPAN. PT NOTED TO HAVE GARBLED SPEECH. NO CHANGES NOTED TO FACIAL FEATURES. SHE WAS ABLE TO COMPLETELY TURN HERSELF TO SIDE FOR BEDPAN PLACEMENT AND REMOVAL. ASSESSMENT, VS TAKEN, AND BEDSIDE GLUCOSE TAKEN AT 136. DR JIMENEZ NOTIFIED AND HE COMES UP TO EXAMINE PT. CONDITION AND PLAN OF CARE DISCUSSED. PT CONVEYS SHE IS COMFORTABLE AT THIS TIME.
--- NOTE | 2020-03-25 06:00 | NUR ---
PT'S VOICE SOMEWHAT CLEARER. SHE RESPONDS APPROPRIATELY AND SAYS "I DON'T KNOW WHY THIS HAPPENED TO ME AGAIN." NO CHANGES.
--- NOTE | 2020-03-25 07:50 | NUR ---
PT TO ULTRASOUND VIA CART.
[2020-03-25] MEDS ORDERED: CARVEDILOL6.25 MG PO (07:59)
[2020-03-25] MEDS ORDERED: LOSARTAN POTASS50 M1 PO (07:59)
[2020-03-25 08:00] VITALS: BP 132/60
--- NOTE | 2020-03-25 08:15 | NUR ---
PT RETURNED FROM ULTRASOUND. NO ACUTE DISTRESS NOTED.
--- NOTE | 2020-03-25 08:19 | NUR ---
Faxed home health resumption to [facility] along with clinical. Notified of discharge today.
--- NOTE | 2020-03-25 09:44 | NUR ---
COMPLAINT INVESTIGATIONS OFFICER NOTIFIED OF PATIENT DISCHARGE. SUPERVISOR PIPE JOINTS SPOKE WITH RN. SHEA ARRANGED FOR A 11AM DISCHARGE WITH CARA LYNN. SHEA SPOKE WITH PATIETNS DAUGHTER MAXINE, SHE IS AWARE.
--- NOTE | 2020-03-25 10:30 | NUR ---
DR DOBSON IN TO SEE PT EARLIER. DISCHARGE ORDERS RECEIVED.
--- NOTE | 2020-03-25 10:35 | NUR ---
PHYSICAL THERAPY Per discussion with [facility] nurse and CM update this am, patient to be d/c to home via [facility] at 1100. Supervising Therapist notified of patient d/c. No services provided this date. Sidney Hidalgo, TABLET REPAIR
--- NOTE | 2020-03-25 10:40 | NUR ---
Patient to be discharged home at 11 pm with daughter. No OT evaluation completed. Per case management note, patient will be referred for home care upon d/c home. Kiki Wilson OTR/L
--- NOTE | 2020-03-25 10:42 | NUR ---
Faxed discharge instructions and summary to [facility]
--- NOTE | 2020-03-25 11:20 | NUR ---
Discharge instructions reviewed with patient. Patient receptive and verbalizes understanding. Follow-up care arranged. Written instructions given to patient. Pt's daughter,Diana, notified earlier of time of discharge. Pt discharged via ambulance. AJAY VALDEZ
== END 2020-03-25 11:20 | disposition home health service (06) | DRG 562 ==
LOC: ED 19:15 → EDHOLD 20:05 → ICCU 20:05
PROVIDERS: Internal Medicine; Physician Assistant; ADMIT Internal Medicine; ATTEND Internal Medicine
DX: S82.141A Displaced bicondylar fracture of right tibia, initial encounter for closed fracture (principal); N17.0 Acute kidney failure with tubular necrosis; I48.20 Chronic atrial fibrillation, unspecified; E44.0 Moderate protein-calorie malnutrition; I69.351 Hemiplegia and hemiparesis following cerebral infarction affecting right dominant side; F32.9 Major depressive disorder, single episode, unspecified; K21.9 Gastro-esophageal reflux disease without esophagitis; I10 Essential (primary) hypertension; E66.9 Obesity, unspecified; E11.51 Type 2 diabetes mellitus with diabetic peripheral angiopathy without gangrene; E11.65 Type 2 diabetes mellitus with hyperglycemia; E86.0 Dehydration; D64.9 Anemia, unspecified; E66.01 Morbid (severe) obesity due to excess calories; S00.83XA Contusion of other part of head, initial encounter; Z88.6 Allergy status to analgesic agent; Z88.0 Allergy status to penicillin; Z88.8 Allergy status to other drugs, medicaments and biological substances; Z90.710 Acquired absence of both cervix and uterus; Z90.49 Acquired absence of other specified parts of digestive tract; Z90.5 Acquired absence of kidney; Z82.49 Family history of ischemic heart disease and other diseases of the circulatory system; Z84.1 Family history of disorders of kidney and ureter; Z83.6 Family history of other diseases of the respiratory system; Z86.711 Personal history of pulmonary embolism; S00.03XD Contusion of scalp, subsequent encounter; Z79.4 Long term (current) use of insulin; Z86.79 Personal history of other diseases of the circulatory system; W18.39XA Other fall on same level, initial encounter; Y93.89 Activity, other specified; Y92.89 Other specified places as the place of occurrence of the external cause; Y99.8 Other external cause status; Z68.38 Body mass index [BMI] 38.0-38.9, adult; Z79.899 Other long term (current) drug therapy

== ENCOUNTER → 2020-04-16 | Outpatient (CLI) | payer MEDICARE ==
[~2020-04-16] MED LIST changes: +ASPIRIN CHEWABL81 MG PO; +CARVEDILOL6.25 MG PO; +CYMBALTA60 MG PO; +GLUCOPHAGE500 M1 PO; +IRON325 M1 PO; +KEPPRA500 MG PO; +LIPITOR40 MG PO; +LOSARTAN POTASS50 M1 PO; +MIRALAX17 GM PO; +MIRTAZAPINE15 M1 PO; +VIMPAT50 MG PO; +VITAMIN D350 MC2 PO
== END | disposition home or self-care (01) ==
LOC: RAD 13:07
PROVIDERS: ATTEND Orthopaedic Surgery
DX: S82.141A Displaced bicondylar fracture of right tibia, initial encounter for closed fracture (principal); M17.11 Unilateral primary osteoarthritis, right knee; X58.XXXA Exposure to other specified factors, initial encounter; Y93.89 Activity, other specified; Y92.89 Other specified places as the place of occurrence of the external cause; Y99.8 Other external cause status

== ENCOUNTER → 2020-06-05 | Outpatient (CLI) | payer MEDICARE | END | disposition home or self-care (01) | LOC: RAD 13:34 | PROVIDERS: ATTEND Family Medicine | DX: M79.671 Pain in right foot (principal) ==

== ENCOUNTER → 2020-07-10 | Outpatient (CLI) | payer MEDICARE | END | disposition home or self-care (01) | LOC: ORTHO 00:13 | PROVIDERS: ATTEND Orthopaedic Surgery | DX: S82.141D Displaced bicondylar fracture of right tibia, subsequent encounter for closed fracture with routine healing (principal); X58.XXXD Exposure to other specified factors, subsequent encounter ==

== ENCOUNTER 2020-07-21 11:47 | Emergency (ER) | payer MEDICARE ==
[2020-07-21 12:17] LABS: BASO % 0.2 % (0.0-1.0); EOS # 0.2 10*3/uL (0.0-0.4); EOS % 3.7 % (1.0-4.0); HEMATOCRIT 34.7 % (37.0-47.0); LYMPH # 1.2 10*3/uL (1.3-4.4); LYMPH % 17.7 % (27.0-41.0); MEAN CELL VOLUME 88.7 fl (81.0-99.0); MEAN CORPUSCULAR HGB 27.6 pg (27.0-31.0); MEAN CORPUSCULAR HGB CONC 31.1 g/dl (33.0-37.0); MEAN PLATELET VOLUME 11.2 fl (9.6-12.3); MONO # 0.5 10*3/uL (0.1-1.0); MONO % 7.8 % (3.0-9.0); NEUT # 4.6 10*3/uL (2.3-7.9); NEUT % 70.4 % (47.0-73.0); PLATELET COUNT AUTOMATED 226 10*3/uL (130-400); RED BLOOD COUNT 3.91 10*6/uL (4.10-5.10); RED CELL DISTRI WIDTH 15.5 % (0-14.5); WHITE BLOOD COUNT 6.5 10*3/uL (4.8-10.8)
[2020-07-21 12:27] LABS: INTERNATIONAL NORM RATIO 1.1 (2.0-3.5)
[2020-07-21 12:33] LABS: ALBUMIN 2.9 gm/dl (3.1-4.5); ALKALINE PHOSPHATASE 105 U/L (45-117); BUN 14 mg/dl (7-24); CHLORIDE 109 mmol/L (98-107); CREATININE 0.67 mg/dL (0.55-1.02); POTASSIUM 3.7 mmol/L (3.5-5.1); SGOT/AST 13 IU/L (3-35); SGPT/ALT 19 U/L (12-78); SODIUM 141 mmol/L (136-145); TOTAL PROTEIN 6.8 gm/dL (6.4-8.2)
[2020-07-21 12:34] LABS: TROPONIN I < 0.015 ng/ml (<0.045)
[2020-07-21 15:00] VITALS: BP 139/70
== END 2020-07-21 15:20 | disposition home or self-care (01) ==
LOC: ED 11:47
PROVIDERS: Physician Assistant
DX: I10 Essential (primary) hypertension (principal); E11.9 Type 2 diabetes mellitus without complications; I48.91 Unspecified atrial fibrillation; Z88.0 Allergy status to penicillin; Z88.5 Allergy status to narcotic agent; Z88.8 Allergy status to other drugs, medicaments and biological substances; Z79.899 Other long term (current) drug therapy; Z79.4 Long term (current) use of insulin; Z79.82 Long term (current) use of aspirin; Z90.49 Acquired absence of other specified parts of digestive tract; Z90.711 Acquired absence of uterus with remaining cervical stump; Z98.890 Other specified postprocedural states; Z96.652 Presence of left artificial knee joint; Z86.73 Personal history of transient ischemic attack (TIA), and cerebral infarction without residual deficits

== ENCOUNTER → 2020-09-22 | Outpatient (CLI) | payer MEDICARE ==
[~2020-09-22] MED LIST changes: +CYCLOBENZAPRINE5 M3 PO
== END | disposition home or self-care (01) ==
LOC: US 14:00
PROVIDERS: ATTEND Family Medicine
DX: R42 Dizziness and giddiness (principal)

== ENCOUNTER 2020-09-29 11:29 | Inpatient (IN) | payer MEDICARE ==
[~2020-09-29] VITALS: Ht 170.1 cm; Wt 112.3 kg
[2020-09-29] VITALS (9 sets, daily range): BP systolic 144–166; BP diastolic 64–85
[~2020-09-29 11:29] MED LIST changes: -CYCLOBENZAPRINE5 M3 PO
[2020-09-29 12:07] LABS: BASO % 0.2 % (0.0-1.0); EOS # 0.3 10*3/uL (0.0-0.4); LYMPH # 1.3 10*3/uL (1.3-4.4); LYMPH % 21.8 % (27.0-41.0); MEAN CELL VOLUME 86.7 fl (81.0-99.0); MEAN CORPUSCULAR HGB 27.2 pg (27.0-31.0); MEAN CORPUSCULAR HGB CONC 31.4 g/dl (33.0-37.0); MEAN PLATELET VOLUME 11.4 fl (9.6-12.3); MONO # 0.4 10*3/uL (0.1-1.0); MONO % 7.6 % (3.0-9.0); NEUT # 3.8 10*3/uL (2.3-7.9); NEUT % 65.1 % (47.0-73.0); PLATELET COUNT AUTOMATED 237 10*3/uL (130-400); RED BLOOD COUNT 4.27 10*6/uL (4.10-5.10); WHITE BLOOD COUNT 5.8 10*3/uL (4.8-10.8)
[2020-09-29 12:23] LABS: ALBUMIN 2.9 gm/dl (3.1-4.5); ALKALINE PHOSPHATASE 120 U/L (45-117); BUN 15 mg/dl (7-24); CHLORIDE 108 mmol/L (98-107); POTASSIUM 3.8 mmol/L (3.5-5.1); SGOT/AST 12 IU/L (3-35); SGPT/ALT 22 U/L (12-78); SODIUM 140 mmol/L (136-145); TOTAL PROTEIN 7.2 gm/dL (6.4-8.2)
[2020-09-29 12:25] LABS: TROPONIN I < 0.015 ng/ml (<0.045)
[2020-09-29 12:28] LABS: ACT PARTIAL THROMBO TIME 35.9 SECONDS (20.0-32.1); INTERNATIONAL NORM RATIO 1.3 (2.0-3.5)
[2020-09-29] MEDS ORDERED: CYCLOBENZAPRINE5 M3 PO (17:49)
[2020-09-29 23:34] LABS: BILIRUBIN Negative (Negative); BLOOD Negative (Negative); CLARITY Clear (Clear); COLOR Yellow (Yellow); GLUCOSE Negative (Negative); KETONE Negative (Negative); LEUKO ESTERASE 1+ (Negative); NITRITE Negative (Negative); PH 5.5 (4.5-8.0); SPECIFIC GRAVITY 1.015 (1.001-1.030)
[2020-09-30] VITALS: BP 155/84
[2020-09-30 05:36] LABS: BUN 13 mg/dl (7-24); CHLORIDE 109 mmol/L (98-107); POTASSIUM 3.5 mmol/L (3.5-5.1); SODIUM 141 mmol/L (136-145)
[2020-09-30 05:48] LABS: CHOLESTEROL 113 mg/dL (<200); CREATININE 0.76 mg/dL (0.55-1.02); LDL CHOLESTEROL 46 mg/dL (9-159); TRIGLYCERIDES 73 mg/dl (<150)
[2020-09-30 05:51] LABS: BASO % 0.2 % (0.0-1.0); EOS # 0.3 10*3/uL (0.0-0.4); EOS % 4.1 % (1.0-4.0); LYMPH # 1.5 10*3/uL (1.3-4.4); LYMPH % 21.8 % (27.0-41.0); MEAN CELL VOLUME 85.9 fl (81.0-99.0); MEAN CORPUSCULAR HGB 27.2 pg (27.0-31.0); MEAN CORPUSCULAR HGB CONC 31.7 g/dl (33.0-37.0); MEAN PLATELET VOLUME 11.5 fl (9.6-12.3); MONO # 0.6 10*3/uL (0.1-1.0); MONO % 8.3 % (3.0-9.0); NEUT # 4.4 10*3/uL (2.3-7.9); NEUT % 65.4 % (47.0-73.0); PLATELET COUNT AUTOMATED 236 10*3/uL (130-400); RED BLOOD COUNT 4.19 10*6/uL (4.10-5.10); RED CELL DISTRI WIDTH 15.8 % (0-14.5); WHITE BLOOD COUNT 6.7 10*3/uL (4.8-10.8)
[2020-09-30 08:00] VITALS: BP 158/72
[2020-09-30 12:00] VITALS: BP 156/65
[2020-09-30 16:00] VITALS: BP 144/70
[2020-09-30 20:00] VITALS: BP 140/68
[2020-10-01] VITALS: BP 130/48
[2020-10-01 06:24] LABS: ALBUMIN 2.9 gm/dl (3.1-4.5); BUN 14 mg/dl (7-24); CHLORIDE 107 mmol/L (98-107); CREATININE 0.85 mg/dL (0.55-1.02); POTASSIUM 3.5 mmol/L (3.5-5.1); SODIUM 139 mmol/L (136-145)
[2020-10-01 08:00] VITALS: BP 152/88
== END 2020-10-01 15:24 | disposition home health service (06) | DRG 313 ==
LOC: ED 11:29 → 4E 14:21 → EDHOLD 14:21 → 4E 16:17
PROVIDERS: Emergency Medicine; Registered Nurse; Student in an Organized Health Care Education/Training Program; ADMIT Internal Medicine; ATTEND Internal Medicine
PROC: 4A02XM4 Measurement of Cardiac Total Activity, External Approach (ICD-10-PCS; principal; 2020-09-30)
PROC: 3E073KZ Introduction of Other Diagnostic Substance into Coronary Artery, Percutaneous Approach (ICD-10-PCS; 2020-09-30)
DX: R07.89 Other chest pain (principal); E44.0 Moderate protein-calorie malnutrition; I48.21 Permanent atrial fibrillation; I69.351 Hemiplegia and hemiparesis following cerebral infarction affecting right dominant side; R09.89 Other specified symptoms and signs involving the circulatory and respiratory systems; R20.2 Paresthesia of skin; R00.1 Bradycardia, unspecified; D64.9 Anemia, unspecified; E87.8 Other disorders of electrolyte and fluid balance, not elsewhere classified; F32.9 Major depressive disorder, single episode, unspecified; K21.9 Gastro-esophageal reflux disease without esophagitis; E66.9 Obesity, unspecified; E11.51 Type 2 diabetes mellitus with diabetic peripheral angiopathy without gangrene; I11.0 Hypertensive heart disease with heart failure; I50.9 Heart failure, unspecified; H40.9 Unspecified glaucoma; Z96.652 Presence of left artificial knee joint; Z88.0 Allergy status to penicillin; Z88.5 Allergy status to narcotic agent; Z88.8 Allergy status to other drugs, medicaments and biological substances; Z91.81 History of falling; Z86.711 Personal history of pulmonary embolism; Z90.49 Acquired absence of other specified parts of digestive tract; Z90.710 Acquired absence of both cervix and uterus; Z90.5 Acquired absence of kidney; Z82.5 Family history of asthma and other chronic lower respiratory diseases; Z82.49 Family history of ischemic heart disease and other diseases of the circulatory system; Z82.0 Family history of epilepsy and other diseases of the nervous system; Z83.3 Family history of diabetes mellitus; Z84.1 Family history of disorders of kidney and ureter; Z82.3 Family history of stroke; Z83.79 Family history of other diseases of the digestive system; Z79.899 Other long term (current) drug therapy; Z79.82 Long term (current) use of aspirin; Z79.01 Long term (current) use of anticoagulants; Z68.38 Body mass index [BMI] 38.0-38.9, adult

== ENCOUNTER 2020-11-12 16:08 | Inpatient (IN) | payer MEDICARE ==
[~2020-11-12] VITALS: Ht 170.2 cm; Wt 116.8 kg
[~2020-11-12 16:08] MED LIST changes: +CYCLOBENZAPRINE5 M3 PO
[2020-11-12 17:15] VITALS: BP 126/66
[2020-11-12] MEDS ORDERED: COREG12.5 M1 PO (17:56)
[2020-11-12] MEDS ORDERED: TYLENOL EXTRA500 MG PO (17:57)
[2020-11-12] MEDS ORDERED: DOXYCYCLINE MO100 MG PO (18:04)
[2020-11-12 20:00] VITALS: BP 131/69
[2020-11-13] VITALS: BP 153/55
[2020-11-13 00:06] LABS: BILIRUBIN Negative (Negative); BLOOD Negative (Negative); CLARITY Clear (Clear); COLOR Yellow (Yellow); GLUCOSE Negative (Negative); KETONE Negative (Negative); LEUKO ESTERASE Trace (Negative); NITRITE Negative (Negative)
[2020-11-13 00:41] LABS: BACTERIA 1+; EPITHELIAL CELLS 41-50
[2020-11-13 06:19] LABS: BASO % 0.2 % (0.0-1.0); EOS # 0.3 10*3/uL (0.0-0.4); HEMATOCRIT 37.6 % (37.0-47.0); LYMPH # 1.2 10*3/uL (1.3-4.4); LYMPH % 19.1 % (27.0-41.0); MEAN CELL VOLUME 87.9 fl (81.0-99.0); MEAN CORPUSCULAR HGB 27.8 pg (27.0-31.0); MEAN CORPUSCULAR HGB CONC 31.6 g/dl (33.0-37.0); MONO # 0.6 10*3/uL (0.1-1.0); MONO % 8.5 % (3.0-9.0); NEUT # 4.4 10*3/uL (2.3-7.9); NEUT % 67.9 % (47.0-73.0); PLATELET COUNT AUTOMATED 242 10*3/uL (130-400); RED BLOOD COUNT 4.28 10*6/uL (4.10-5.10); RED CELL DISTRI WIDTH 16.5 % (0-14.5); WHITE BLOOD COUNT 6.4 10*3/uL (4.8-10.8)
[2020-11-13 06:31] LABS: ALBUMIN 2.9 gm/dl (3.1-4.5); BUN 16 mg/dl (7-24); CHLORIDE 105 mmol/L (98-107); POTASSIUM 3.6 mmol/L (3.5-5.1); SODIUM 138 mmol/L (136-145)
[2020-11-13 06:36] LABS: ALKALINE PHOSPHATASE 105 U/L (45-117); CREATININE 0.76 mg/dL (0.55-1.02); SGOT/AST 19 IU/L (3-35); SGPT/ALT 26 U/L (12-78); TOTAL PROTEIN 7.1 gm/dL (6.4-8.2)
[2020-11-13 08:00] VITALS: BP 149/66
[2020-11-13 12:00] VITALS: BP 132/75
[2020-11-13 16:00] VITALS: BP 116/52
[2020-11-13 20:00] VITALS: BP 143/52
[2020-11-14] VITALS: BP 153/70
[2020-11-14 06:12] LABS: BASO % 0.2 % (0.0-1.0); EOS # 0.2 10*3/uL (0.0-0.4); HEMATOCRIT 37.9 % (37.0-47.0); LYMPH # 1.3 10*3/uL (1.3-4.4); LYMPH % 19.8 % (27.0-41.0); MEAN CELL VOLUME 87.5 fl (81.0-99.0); MEAN CORPUSCULAR HGB 27.3 pg (27.0-31.0); MEAN CORPUSCULAR HGB CONC 31.1 g/dl (33.0-37.0); MEAN PLATELET VOLUME 11.7 fl (9.6-12.3); MONO # 0.5 10*3/uL (0.1-1.0); MONO % 8.1 % (3.0-9.0); NEUT # 4.6 10*3/uL (2.3-7.9); NEUT % 68.6 % (47.0-73.0); PLATELET COUNT AUTOMATED 248 10*3/uL (130-400); RED BLOOD COUNT 4.33 10*6/uL (4.10-5.10); RED CELL DISTRI WIDTH 16.6 % (0-14.5); WHITE BLOOD COUNT 6.7 10*3/uL (4.8-10.8)
[2020-11-14 06:35] LABS: BUN 24 mg/dl (7-24); CHLORIDE 106 mmol/L (98-107); CREATININE 0.95 mg/dL (0.55-1.02); SODIUM 138 mmol/L (136-145)
[2020-11-14 08:00] VITALS: BP 119/56
[2020-11-14 12:00] VITALS: BP 110/58
[2020-11-14 16:00] VITALS: BP 123/61
[2020-11-14 20:00] VITALS: BP 158/89
[2020-11-15] VITALS: BP 158/90
[2020-11-15 08:00] VITALS: BP 155/72
[2020-11-15 12:00] VITALS: BP 154/74
[2020-11-15 16:00] VITALS: BP 129/62
[2020-11-15 20:00] VITALS: BP 150/70
[2020-11-16] VITALS: BP 170/70
[2020-11-16 08:00] VITALS: BP 163/65
[2020-11-16 12:00] VITALS: BP 152/77
[2020-11-16 16:00] VITALS: BP 117/57; BP 153/81
[2020-11-16 20:00] VITALS: BP 160/64
[2020-11-17] VITALS: BP 157/68
[2020-11-17 08:00] VITALS: BP 151/78
[2020-11-17 12:00] VITALS: BP 142/66
[2020-11-17 16:00] VITALS: BP 125/66
[2020-11-17 21:03] VITALS: BP 125/87
[2020-11-18 00:07] VITALS: BP 143/69
[2020-11-18 06:25] LABS: BASO % 0.2 % (0.0-1.0); EOS # 0.3 10*3/uL (0.0-0.4); EOS % 5.8 % (1.0-4.0); HEMATOCRIT 36.3 % (37.0-47.0); LYMPH # 1.2 10*3/uL (1.3-4.4); LYMPH % 21.3 % (27.0-41.0); MEAN CELL VOLUME 88.1 fl (81.0-99.0); MEAN CORPUSCULAR HGB 27.4 pg (27.0-31.0); MEAN CORPUSCULAR HGB CONC 31.1 g/dl (33.0-37.0); MEAN PLATELET VOLUME 11.6 fl (9.6-12.3); MONO # 0.4 10*3/uL (0.1-1.0); MONO % 7.6 % (3.0-9.0); NEUT # 3.6 10*3/uL (2.3-7.9); NEUT % 64.9 % (47.0-73.0); PLATELET COUNT AUTOMATED 215 10*3/uL (130-400); RED BLOOD COUNT 4.12 10*6/uL (4.10-5.10); RED CELL DISTRI WIDTH 16.2 % (0-14.5); WHITE BLOOD COUNT 5.5 10*3/uL (4.8-10.8)
[2020-11-18 06:53] LABS: BUN 16 mg/dl (7-24); CHLORIDE 106 mmol/L (98-107); CREATININE 0.89 mg/dL (0.55-1.02); POTASSIUM 3.9 mmol/L (3.5-5.1); SODIUM 139 mmol/L (136-145)
[2020-11-18 08:00] VITALS: BP 178/78
[2020-11-18 12:00] VITALS: BP 141/58
[2020-11-18 16:00] VITALS: BP 152/90
[2020-11-18 20:00] VITALS: BP 160/95
[2020-11-18 21:49] VITALS: BP 160/70
[2020-11-19 00:30] VITALS: BP 141/71
[2020-11-19 08:00] VITALS: BP 153/71
[2020-11-19 12:00] VITALS: BP 147/95
[2020-11-19] MEDS ORDERED: Lantus SC (14:57)
[2020-11-19] MEDS ORDERED: Humalog SQ (14:57)
== END 2020-11-19 18:02 | DRG 690 ==
LOC: 4E 16:08
PROVIDERS: Hospitalist; Internal Medicine; Social Worker Clinical; ADMIT Internal Medicine; ATTEND Internal Medicine
DX: N39.0 Urinary tract infection, site not specified (principal); E44.0 Moderate protein-calorie malnutrition; I48.20 Chronic atrial fibrillation, unspecified; I69.351 Hemiplegia and hemiparesis following cerebral infarction affecting right dominant side; Z68.41 Body mass index [BMI] 40.0-44.9, adult; H40.9 Unspecified glaucoma; R00.1 Bradycardia, unspecified; I10 Essential (primary) hypertension; R20.2 Paresthesia of skin; F32.9 Major depressive disorder, single episode, unspecified; E66.01 Morbid (severe) obesity due to excess calories; D64.9 Anemia, unspecified; K21.9 Gastro-esophageal reflux disease without esophagitis; E11.65 Type 2 diabetes mellitus with hyperglycemia; E11.51 Type 2 diabetes mellitus with diabetic peripheral angiopathy without gangrene; Z96.652 Presence of left artificial knee joint; B96.4 Proteus (mirabilis) (morganii) as the cause of diseases classified elsewhere; M17.11 Unilateral primary osteoarthritis, right knee; Z20.822 Contact with and (suspected) exposure to COVID-19; E11.42 Type 2 diabetes mellitus with diabetic polyneuropathy; Z79.4 Long term (current) use of insulin; Z86.711 Personal history of pulmonary embolism; Z90.49 Acquired absence of other specified parts of digestive tract; Z90.5 Acquired absence of kidney; Z90.710 Acquired absence of both cervix and uterus; Z82.49 Family history of ischemic heart disease and other diseases of the circulatory system; Z82.0 Family history of epilepsy and other diseases of the nervous system; Z84.1 Family history of disorders of kidney and ureter; Z83.3 Family history of diabetes mellitus; Z82.5 Family history of asthma and other chronic lower respiratory diseases; Z83.79 Family history of other diseases of the digestive system; Z88.0 Allergy status to penicillin; Z88.5 Allergy status to narcotic agent; Z88.8 Allergy status to other drugs, medicaments and biological substances; Z79.899 Other long term (current) drug therapy; Z79.82 Long term (current) use of aspirin; Z79.01 Long term (current) use of anticoagulants

== ENCOUNTER 2020-12-25 13:23 | Inpatient (IN) | payer MEDICARE ==
[~2020-12-25] VITALS: Ht 8229 cm
[~2020-12-25 13:23] MED LIST changes: +DOXYCYCLINE MO100 MG PO; +Humalog SQ; +Lantus SC; +TYLENOL EXTRA500 MG PO
[2020-12-25 13:29] VITALS: BP 99/44
[2020-12-25 13:38] VITALS: BP 98/50
[2020-12-25 13:39] VITALS: BP 98/50
[2020-12-25 13:50] LABS: BASO % 0.2 % (0.0-1.0); EOS # 0.2 10*3/uL (0.0-0.4); EOS % 3.1 % (1.0-4.0); HEMATOCRIT 36.4 % (37.0-47.0); MEAN CELL VOLUME 88.6 fl (81.0-99.0); MEAN CORPUSCULAR HGB 27.5 pg (27.0-31.0); MONO # 0.4 10*3/uL (0.1-1.0); MONO % 7.6 % (3.0-9.0); NEUT # 3.5 10*3/uL (2.3-7.9); NEUT % 68.9 % (47.0-73.0); PLATELET COUNT AUTOMATED 226 10*3/uL (130-400); RED BLOOD COUNT 4.11 10*6/uL (4.10-5.10); RED CELL DISTRI WIDTH 16.2 % (0-14.5); WHITE BLOOD COUNT 5.1 10*3/uL (4.8-10.8)
[2020-12-25 14:08] LABS: ALBUMIN 3.1 gm/dl (3.1-4.5); ALKALINE PHOSPHATASE 121 U/L (45-117); BUN 11 mg/dl (7-24); CHLORIDE 108 mmol/L (98-107); POTASSIUM 3.8 mmol/L (3.5-5.1); SGOT/AST 14 IU/L (3-35); SGPT/ALT 17 U/L (12-78); SODIUM 142 mmol/L (136-145); TOTAL PROTEIN 7.3 gm/dL (6.4-8.2)
[2020-12-25 14:12] VITALS: BP 130/45
[2020-12-25 14:12] LABS: TROPONIN I < 0.015 ng/ml (<0.045)
[2020-12-25 17:32] LABS: BILIRUBIN Negative (Negative); BLOOD Negative (Negative); CLARITY Clear (Clear); COLOR Yellow (Yellow); GLUCOSE Negative (Negative); KETONE Negative (Negative); LEUKO ESTERASE 1+ (Negative); NITRITE Negative (Negative); SPECIFIC GRAVITY 1.015 (1.001-1.030)
[2020-12-25 18:01] VITALS: BP 144/51
[2020-12-25 18:08] LABS: BACTERIA 2+; WBC 21-30 wbc/hpf (0-5)
[2020-12-25 19:52] LABS: TROPONIN I < 0.015 ng/ml (<0.045)
== END 2020-12-25 21:35 | disposition left against medical advice (07) | DRG 690 ==
LOC: ED 13:23 → EDHOLD 17:41
PROVIDERS: Internal Medicine; ADMIT Internal Medicine; ATTEND Internal Medicine
DX: N30.00 Acute cystitis without hematuria (principal); F33.9 Major depressive disorder, recurrent, unspecified; I69.951 Hemiplegia and hemiparesis following unspecified cerebrovascular disease affecting right dominant side; Z53.29 Procedure and treatment not carried out because of patient's decision for other reasons; D64.9 Anemia, unspecified; I48.0 Paroxysmal atrial fibrillation; K21.9 Gastro-esophageal reflux disease without esophagitis; R07.9 Chest pain, unspecified; Z66 Do not resuscitate; E11.65 Type 2 diabetes mellitus with hyperglycemia; E11.51 Type 2 diabetes mellitus with diabetic peripheral angiopathy without gangrene; E66.01 Morbid (severe) obesity due to excess calories; M79.2 Neuralgia and neuritis, unspecified; E87.8 Other disorders of electrolyte and fluid balance, not elsewhere classified; I10 Essential (primary) hypertension; Z96.652 Presence of left artificial knee joint; Z88.0 Allergy status to penicillin; Z88.5 Allergy status to narcotic agent; Z88.8 Allergy status to other drugs, medicaments and biological substances; Z90.49 Acquired absence of other specified parts of digestive tract; Z90.710 Acquired absence of both cervix and uterus; Z82.5 Family history of asthma and other chronic lower respiratory diseases; Z82.49 Family history of ischemic heart disease and other diseases of the circulatory system; Z82.0 Family history of epilepsy and other diseases of the nervous system; Z83.3 Family history of diabetes mellitus; Z90.5 Acquired absence of kidney; Z79.82 Long term (current) use of aspirin; Z79.899 Other long term (current) drug therapy; Z79.4 Long term (current) use of insulin; Z79.1 Long term (current) use of non-steroidal anti-inflammatories (NSAID)

== ENCOUNTER 2021-03-26 13:02 | Emergency (ER) | payer MEDICARE ==
[~2021-03-26] VITALS: Ht 170.1 cm; Wt 111.1 kg
[2021-03-26 13:22] LABS: BASO % 0.2 % (0.0-1.0); EOS # 0.2 10*3/uL (0.0-0.4); EOS % 3.2 % (1.0-4.0); HEMATOCRIT 38.4 % (37.0-47.0); LYMPH % 16.8 % (27.0-41.0); MEAN CELL VOLUME 86.9 fl (81.0-99.0); MEAN CORPUSCULAR HGB 27.4 pg (27.0-31.0); MEAN CORPUSCULAR HGB CONC 31.5 g/dl (33.0-37.0); MEAN PLATELET VOLUME 11.6 fl (9.6-12.3); MONO # 0.4 10*3/uL (0.1-1.0); MONO % 7.1 % (3.0-9.0); NEUT # 4.3 10*3/uL (2.3-7.9); NEUT % 72.4 % (47.0-73.0); PLATELET COUNT AUTOMATED 229 10*3/uL (130-400); RED BLOOD COUNT 4.42 10*6/uL (4.10-5.10); RED CELL DISTRI WIDTH 15.4 % (0-14.5); WHITE BLOOD COUNT 5.9 10*3/uL (4.8-10.8)
[2021-03-26 13:31] LABS: ACT PARTIAL THROMBO TIME 37.3 SECONDS (20.0-32.1); INTERNATIONAL NORM RATIO 1.3 (2.0-3.5)
[2021-03-26 13:37] LABS: ALBUMIN 2.8 gm/dl (3.1-4.5); ALKALINE PHOSPHATASE 125 U/L (45-117); BUN 16 mg/dl (7-24); CHLORIDE 109 mmol/L (98-107); CREATININE 0.79 mg/dL (0.55-1.02); POTASSIUM 3.9 mmol/L (3.5-5.1); SGOT/AST 14 IU/L (3-35); SGPT/ALT 29 U/L (12-78); SODIUM 142 mmol/L (136-145); TOTAL PROTEIN 7.2 gm/dL (6.4-8.2)
[2021-03-26 13:38] LABS: TROPONIN I < 0.015 ng/ml (<0.045)
[2021-03-26 16:02] LABS: BILIRUBIN Negative (Negative); BLOOD Negative (Negative); CLARITY Clear (Clear); COLOR Yellow (Yellow); GLUCOSE Negative (Negative); KETONE Negative (Negative); LEUKO ESTERASE 1+ (Negative); NITRITE Negative (Negative); PH 5.5 (4.5-8.0); SPECIFIC GRAVITY 1.025 (1.001-1.030)
[2021-03-26 16:15] LABS: BACTERIA 3+; EPITHELIAL CELLS 31-40; RBC 0-2 rbc/hpf (0-2); WBC 21-30 wbc/hpf (0-5)
[2021-03-26 21:28] VITALS: BP 162/60
== END 2021-03-26 22:05 | disposition home or self-care (01) ==
LOC: ED 13:02
PROVIDERS: Emergency Medicine
DX: R53.1 Weakness (principal); R07.89 Other chest pain; E11.9 Type 2 diabetes mellitus without complications; I10 Essential (primary) hypertension; E66.9 Obesity, unspecified; Z88.0 Allergy status to penicillin; Z88.6 Allergy status to analgesic agent; Z88.8 Allergy status to other drugs, medicaments and biological substances; Z79.899 Other long term (current) drug therapy; Z79.82 Long term (current) use of aspirin; Z86.73 Personal history of transient ischemic attack (TIA), and cerebral infarction without residual deficits

== ENCOUNTER 2021-09-17 18:08 | Emergency (ER) | payer MEDICARE ==
[~2021-09-17] VITALS: Wt 127.9 kg
[~2021-09-17 18:08] MED LIST changes: +IMDUR SA30 MG PO
[2021-09-17 18:52] LABS: BILIRUBIN Negative (Negative); BLOOD Negative (Negative); CLARITY Cloudy (Clear); COLOR Dark Yellow (Yellow); GLUCOSE 3+ (Negative); KETONE Negative (Negative); LEUKO ESTERASE 1+ (Negative); NITRITE Positive (Negative); PH 5.5 (4.5-8.0); SPECIFIC GRAVITY 1.025 (1.001-1.030)
[2021-09-17 18:54] LABS: BASO % 0.1 % (0.0-1.0); EOS # 0.1 10*3/uL (0.0-0.4); EOS % 1.8 % (1.0-4.0); HEMATOCRIT 35.4 % (37.0-47.0); LYMPH # 1.2 10*3/uL (1.3-4.4); LYMPH % 16.1 % (27.0-41.0); MEAN CELL VOLUME 82.3 fl (81.0-99.0); MEAN CORPUSCULAR HGB 25.8 pg (27.0-31.0); MEAN CORPUSCULAR HGB CONC 31.4 g/dl (33.0-37.0); MEAN PLATELET VOLUME 10.6 fl (9.6-12.3); MONO # 0.6 10*3/uL (0.1-1.0); MONO % 8.9 % (3.0-9.0); NEUT # 5.3 10*3/uL (2.3-7.9); NEUT % 72.7 % (47.0-73.0); PLATELET COUNT AUTOMATED 227 10*3/uL (130-400); RED CELL DISTRI WIDTH 15.7 % (0-14.5); WHITE BLOOD COUNT 7.2 10*3/uL (4.8-10.8)
[2021-09-17 18:59] LABS: BACTERIA 4+
[2021-09-17 19:07] LABS: INTERNATIONAL NORM RATIO 1.3 (2.0-3.5)
[2021-09-17 19:56] LABS: ALKALINE PHOSPHATASE 126 U/L (45-117); BUN 11 mg/dl (7-24); CHLORIDE 103 mmol/L (98-107); CREATININE 0.71 mg/dL (0.55-1.02); LIPASE 34 U/L (73-393); POTASSIUM 4.1 mmol/L (3.5-5.1); SGOT/AST 13 IU/L (3-35); SGPT/ALT 19 U/L (12-78); SODIUM 136 mmol/L (136-145); TOTAL PROTEIN 6.8 gm/dL (6.4-8.2)
[2021-09-17] MEDS ORDERED: DOCUSATE SOD100 MG PO (20:25)
[2021-09-17] MEDS ORDERED: LATANOPROST2.5 ML OU (20:26)
[2021-09-17] MEDS ORDERED: LANTUS SOL100 UNIT/1 SC (20:33)
[2021-09-17] MEDS ORDERED: HUMALOG100 UNIT/2 SQ (20:36)
[2021-09-17 20:38] VITALS: BP 157/78
[2021-09-17] MEDS ORDERED: SEPTDS PO (21:28)
== END 2021-09-18 01:02 | disposition home or self-care (01) ==
LOC: ED 18:08
PROVIDERS: Physician Assistant
DX: N39.0 Urinary tract infection, site not specified (principal); Z90.49 Acquired absence of other specified parts of digestive tract; Z90.710 Acquired absence of both cervix and uterus; Z88.8 Allergy status to other drugs, medicaments and biological substances; Z88.0 Allergy status to penicillin; Z79.899 Other long term (current) drug therapy; Z79.82 Long term (current) use of aspirin; Z90.89 Acquired absence of other organs

== ENCOUNTER → 2021-10-08 | Outpatient (CLI) | payer MEDICARE ==
[~2021-10-08] MED LIST changes: +DOCUSATE SOD100 MG PO; +HUMALOG100 UNIT/2 SQ; +LATANOPROST2.5 ML OU; +SEPTDS PO
== END | disposition home or self-care (01) ==
LOC: CARD 09-10 00:08
PROVIDERS: ATTEND Registered Nurse
DX: R07.89 Other chest pain (principal)

== ENCOUNTER → 2021-10-15 | Outpatient (CLI) | payer MEDICARE ==
[2021-10-15 14:02] LABS: ALKALINE PHOSPHATASE 135 U/L (45-117); BUN 14 mg/dl (7-24); CHLORIDE 102 mmol/L (98-107); CREATININE 0.96 mg/dL (0.55-1.02); POTASSIUM 4.1 mmol/L (3.5-5.1); SGOT/AST 19 IU/L (3-35); SGPT/ALT 27 U/L (12-78); SODIUM 136 mmol/L (136-145); TOTAL PROTEIN 7.4 gm/dL (6.4-8.2)
== END | disposition home or self-care (01) ==
LOC: LAB 13:22 → CT 15:00
PROVIDERS: Family Medicine; ATTEND Family Medicine
DX: D17.79 Benign lipomatous neoplasm of other sites (principal); K86.89 Other specified diseases of pancreas; M51.36 Other intervertebral disc degeneration, lumbar region; M48.061 Spinal stenosis, lumbar region without neurogenic claudication; M51.34 Other intervertebral disc degeneration, thoracic region; M48.04 Spinal stenosis, thoracic region

== ENCOUNTER 2022-09-29 14:10 | Inpatient (IN) | payer MEDICARE ==
[~2022-09-29] VITALS: Ht 170.2 cm; Wt 121.6 kg
[2022-09-29] VITALS (7 sets, daily range): BP systolic 105–149; BP diastolic 58–78
[~2022-09-29 14:10] MED LIST changes: -AMIODARONE HCL200 MG PO; +AMIODARONE HYD200 MG PO; +AMLODIPINE BESYL5 MG PO; +CARVEDILOL ER10 MG PO; +COZAAR50 M1 PO; +CYCLOBENZAPRINE10 MG PO; +LACTULOSE20 GM/30 M PO; +LASIX20 MG PO; +OMNICEF300 MG PO; +ONDANSETRON ODT8 MG PO; +PROTONIX TR40 M1 PO; +TOBRAMYCIN5 ML OP; +VIBRAMYCIN HYC100 MG PO
[2022-09-29] MEDS ORDERED: SENNA8.6 MG PO (14:19)
[2022-09-29] MEDS ORDERED: LOSARTAN POTASS50 M1 PO (14:19)
[2022-09-29] MEDS ORDERED: IRON325 M1 PO (14:22)
[2022-09-29] MEDS ORDERED: ASPIRIN81 M1 PO (14:23)
[2022-09-29] MEDS ORDERED: K-TAB10 MEQ PO (14:26)
[2022-09-29] MEDS ORDERED: BUPRENORPHINE1 EACH TD (14:30)
[2022-09-29] MEDS ORDERED: FLOVENT DISKU100 MCG INH (14:31)
[2022-09-29] MEDS ORDERED: PROVENTIL HFA6.7 GM INH (14:32)
[2022-09-29 14:45] LABS: BASO % 0.2 % (0.0-1.0); EOS # 0.3 10*3/uL (0.0-0.4); EOS % 4.3 % (1.0-4.0); HEMATOCRIT 39.4 % (37.0-47.0); LYMPH # 1.7 10*3/uL (1.3-4.4); LYMPH % 26.6 % (27.0-41.0); MEAN CELL VOLUME 89.5 fl (81.0-99.0); MEAN CORPUSCULAR HGB 28.9 pg (27.0-31.0); MEAN CORPUSCULAR HGB CONC 32.2 g/dl (33.0-37.0); MEAN PLATELET VOLUME 10.8 fl (9.6-12.3); MONO # 0.4 10*3/uL (0.1-1.0); MONO % 6.8 % (3.0-9.0); NEUT % 61.8 % (47.0-73.0); PLATELET COUNT AUTOMATED 234 10*3/uL (130-400); RED CELL DISTRI WIDTH 14.8 % (0-14.5); WHITE BLOOD COUNT 6.5 10*3/uL (4.8-10.8)
[2022-09-29 14:56] LABS: ACT PARTIAL THROMBO TIME 40.1 SECONDS (20.0-32.1); INTERNATIONAL NORM RATIO 1.3 (2.0-3.5)
[2022-09-29 15:16] LABS: ALKALINE PHOSPHATASE 89 U/L (46-116); BUN 10 mg/dl (9-23); CHLORIDE 103 mmol/L (98-107); POTASSIUM 3.9 mmol/L (3.4-5.1); SGPT/ALT 20 U/L (10-49); TOTAL PROTEIN 6.5 gm/dL (6.0-8.0)
[2022-09-29] MEDS ORDERED: INSULIN LI100 UNIT/2 SQ (20:35)
[2022-09-29] MEDS ORDERED: CIPROFLOXACIN HC5 ML OPH (21:50)
[2022-09-30] VITALS: BP 92/53
[2022-09-30 06:11] LABS: EOS # 0.3 10*3/uL (0.0-0.4); EOS % 4.3 % (1.0-4.0); HEMATOCRIT 35.5 % (37.0-47.0); LYMPH # 1.5 10*3/uL (1.3-4.4); LYMPH % 22.7 % (27.0-41.0); MEAN CORPUSCULAR HGB 29.5 pg (27.0-31.0); MEAN CORPUSCULAR HGB CONC 32.1 g/dl (33.0-37.0); MEAN PLATELET VOLUME 12.4 fl (9.6-12.3); MONO # 0.4 10*3/uL (0.1-1.0); MONO % 6.6 % (3.0-9.0); NEUT # 4.3 10*3/uL (2.3-7.9); NEUT % 66.1 % (47.0-73.0); PLATELET COUNT AUTOMATED 209 10*3/uL (130-400); RED BLOOD COUNT 3.86 10*6/uL (4.10-5.10); WHITE BLOOD COUNT 6.6 10*3/uL (4.8-10.8)
[2022-09-30 06:19] LABS: ALKALINE PHOSPHATASE 86 U/L (46-116); BUN 9 mg/dl (9-23); CHLORIDE 104 mmol/L (98-107); POTASSIUM 3.9 mmol/L (3.4-5.1); SGPT/ALT 17 U/L (10-49); TOTAL PROTEIN 5.9 gm/dL (6.0-8.0)
[2022-09-30 08:00] VITALS: BP 121/67
[2022-09-30 12:00] VITALS: BP 124/51
[2022-09-30 16:00] VITALS: BP 104/42
[2022-09-30 20:00] VITALS: BP 120/53
[2022-09-30 20:19] LABS: BASO % 0.1 % (0.0-1.0); EOS # 0.2 10*3/uL (0.0-0.4); HEMATOCRIT 37.3 % (37.0-47.0); LYMPH # 1.6 10*3/uL (1.3-4.4); LYMPH % 20.7 % (27.0-41.0); MEAN CELL VOLUME 89.9 fl (81.0-99.0); MEAN CORPUSCULAR HGB 29.6 pg (27.0-31.0); MEAN PLATELET VOLUME 11.7 fl (9.6-12.3); MONO # 0.5 10*3/uL (0.1-1.0); MONO % 5.7 % (3.0-9.0); NEUT # 5.6 10*3/uL (2.3-7.9); NEUT % 71.1 % (47.0-73.0); PLATELET COUNT AUTOMATED 225 10*3/uL (130-400); RED BLOOD COUNT 4.15 10*6/uL (4.10-5.10); RED CELL DISTRI WIDTH 14.8 % (0-14.5); WHITE BLOOD COUNT 7.9 10*3/uL (4.8-10.8)
[2022-09-30 20:36] LABS: BUN 10 mg/dl (9-23); CHLORIDE 101 mmol/L (98-107); POTASSIUM 4.1 mmol/L (3.4-5.1)
[2022-10-01] VITALS: BP 99/40
[2022-10-01 06:38] LABS: BASO % 0.1 % (0.0-1.0); EOS # 0.3 10*3/uL (0.0-0.4); EOS % 3.1 % (1.0-4.0); HEMATOCRIT 36.9 % (37.0-47.0); LYMPH % 25.1 % (27.0-41.0); MEAN CELL VOLUME 90.4 fl (81.0-99.0); MEAN CORPUSCULAR HGB 28.7 pg (27.0-31.0); MEAN CORPUSCULAR HGB CONC 31.7 g/dl (33.0-37.0); MEAN PLATELET VOLUME 12.5 fl (9.6-12.3); MONO # 0.6 10*3/uL (0.1-1.0); MONO % 7.3 % (3.0-9.0); NEUT # 5.1 10*3/uL (2.3-7.9); NEUT % 64.1 % (47.0-73.0); PLATELET COUNT AUTOMATED 236 10*3/uL (130-400); RED BLOOD COUNT 4.08 10*6/uL (4.10-5.10); RED CELL DISTRI WIDTH 14.9 % (0-14.5)
[2022-10-01 06:59] LABS: POTASSIUM 3.6 mmol/L (3.4-5.1)
[2022-10-01 08:00] VITALS: BP 108/60
[2022-10-01 12:00] VITALS: BP 119/53
[2022-10-01] MEDS ORDERED: LEVOFLOXACIN750 M2 PO (14:19)
[2022-10-01 16:00] VITALS: BP 96/46
== END 2022-10-01 18:00 | disposition home or self-care (01) | DRG 392 ==
LOC: ED 14:10 → 4E 18:28 → EDHOLD 18:28 → 4E 19:44
PROVIDERS: Internal Medicine; Student in an Organized Health Care Education/Training Program; ADMIT Internal Medicine; ATTEND Internal Medicine
PROC: 4A02XM4 Measurement of Cardiac Total Activity, External Approach (ICD-10-PCS; principal; 2022-10-01)
PROC: 3E073KZ Introduction of Other Diagnostic Substance into Coronary Artery, Percutaneous Approach (ICD-10-PCS; 2022-10-01)
DX: K59.00 Constipation, unspecified (principal); E44.0 Moderate protein-calorie malnutrition; L03.213 Periorbital cellulitis; Z68.41 Body mass index [BMI] 40.0-44.9, adult; H57.11 Ocular pain, right eye; H10.9 Unspecified conjunctivitis; Z96.652 Presence of left artificial knee joint; I48.0 Paroxysmal atrial fibrillation; I10 Essential (primary) hypertension; E66.01 Morbid (severe) obesity due to excess calories; E11.65 Type 2 diabetes mellitus with hyperglycemia; E11.51 Type 2 diabetes mellitus with diabetic peripheral angiopathy without gangrene; Z90.49 Acquired absence of other specified parts of digestive tract; Z86.73 Personal history of transient ischemic attack (TIA), and cerebral infarction without residual deficits; Z90.710 Acquired absence of both cervix and uterus; Z82.5 Family history of asthma and other chronic lower respiratory diseases; Z82.49 Family history of ischemic heart disease and other diseases of the circulatory system; Z79.51 Long term (current) use of inhaled steroids; Z79.899 Other long term (current) drug therapy; R07.9 Chest pain, unspecified

== ENCOUNTER 2023-04-27 14:03 | Emergency (ER) | payer MEDICARE ==
[~2023-04-27] VITALS: Ht 170.1 cm; Wt 117.7 kg
[~2023-04-27 14:03] MED LIST changes: +ASPIRIN81 M1 PO; +BUPRENORPHINE1 EACH TD; +CIPROFLOXACIN HC5 ML OPH; +DEXAMETHASONE/TO5 ML OPH; +FLOVENT DISKU100 MCG INH; +INSULIN LI100 UNIT/2 SQ; +K-TAB10 MEQ PO; +LEVOFLOXACIN750 M2 PO; +MOXIFLOXACIN3 ML OP; +PROVENTIL HFA6.7 GM INH; +SINGULAIR10 M1 PO
[2023-04-27 14:20] VITALS: BP 119/61
[2023-04-27 14:35] LABS: BASO % 0.3 % (0.0-1.0); EOS # 0.3 10*3/uL (0.0-0.4); EOS % 4.6 % (1.0-4.0); HEMATOCRIT 36.1 % (37.0-47.0); LYMPH # 1.3 10*3/uL (1.3-4.4); LYMPH % 17.5 % (27.0-41.0); MEAN CELL VOLUME 88.3 fl (81.0-99.0); MEAN CORPUSCULAR HGB 28.9 pg (27.0-31.0); MEAN CORPUSCULAR HGB CONC 32.7 g/dl (33.0-37.0); MEAN PLATELET VOLUME 11.5 fl (9.6-12.3); MONO # 0.5 10*3/uL (0.1-1.0); MONO % 6.2 % (3.0-9.0); NEUT # 5.3 10*3/uL (2.3-7.9); NEUT % 71.1 % (47.0-73.0); PLATELET COUNT AUTOMATED 264 10*3/uL (130-400); RED BLOOD COUNT 4.09 10*6/uL (4.10-5.10); WHITE BLOOD COUNT 7.4 10*3/uL (4.8-10.8)
[2023-04-27 14:49] LABS: ACT PARTIAL THROMBO TIME 43.9 SECONDS (20.0-32.1)
[2023-04-27 14:58] LABS: ALKALINE PHOSPHATASE 141 U/L (46-116); BUN 17 mg/dl (9-23); CHLORIDE 108 mmol/L (98-107); POTASSIUM 3.7 mmol/L (3.4-5.1); SGPT/ALT 17 U/L (5-49); TOTAL PROTEIN 6.3 gm/dL (6.0-8.0)
[2023-04-27] MEDS ORDERED: ALBUTEROL2.5 MG/0.5 INH (15:22)
[2023-04-27] MEDS ORDERED: [UNRECOGNIZED DRUG - REMARK] PO (15:25)
[2023-04-27 16:45] LABS: BILIRUBIN Negative (Negative); BLOOD 1+ (Negative); CLARITY Cloudy (Clear); COLOR Yellow (Yellow); GLUCOSE Negative (Negative); KETONE Negative (Negative); LEUKO ESTERASE 2+ (Negative); NITRITE Negative (Negative); UROBILINOGEN 0.2 E.U./dl (0.0-1.0)
[2023-04-27 17:00] LABS: BACTERIA 4+; RBC 16-20 rbc/hpf (0-2); WBC 21-30 wbc/hpf (0-5)
[2023-04-27] MEDS ORDERED: OMNICEF300 MG PO (17:35)
== END 2023-04-27 18:20 | disposition home or self-care (01) ==
LOC: ED 14:03 → EDBD 14:25 → ED 18:20
PROVIDERS: Nurse Practitioner Family
DX: R07.89 Other chest pain (principal); N39.0 Urinary tract infection, site not specified; R20.2 Paresthesia of skin; E86.0 Dehydration; E87.6 Hypokalemia; I95.9 Hypotension, unspecified; I10 Essential (primary) hypertension; I48.91 Unspecified atrial fibrillation; E11.65 Type 2 diabetes mellitus with hyperglycemia; D64.9 Anemia, unspecified; Z87.442 Personal history of urinary calculi; Z86.718 Personal history of other venous thrombosis and embolism; Z88.5 Allergy status to narcotic agent; Z88.0 Allergy status to penicillin; Z88.8 Allergy status to other drugs, medicaments and biological substances; K21.9 Gastro-esophageal reflux disease without esophagitis; Z90.49 Acquired absence of other specified parts of digestive tract; Z96.652 Presence of left artificial knee joint; Z90.89 Acquired absence of other organs; Z90.710 Acquired absence of both cervix and uterus; Z95.5 Presence of coronary angioplasty implant and graft; Z98.890 Other specified postprocedural states

== ENCOUNTER → 2023-06-24 | Outpatient (CLI) | payer MEDICARE ==
[~2023-06-24] MED LIST changes: +ACETAMINOPHEN500 M4 PO; +ALBUTEROL2.5 MG/0.5 INH; +ASPIRIN ADULT L81 M1 PO; +BACITRACIN28.4 GM INTRAOC; +ESCITALOPRAM OXA5 MG PO; +HYDROCODONE-AC1 EAC1 PO; +LATANOPROST2.5 ML OP; +NITROGLYCERIN2.5 MG PO; +PREDNISOLONE ACE5 M2 OPH; +PREDNISOLONE ACE5 M5 OP; +SENNA-LAX8.6 MG PO; +[UNRECOGNIZED DRUG - REMARK] PO
[2023-06-24 17:48] LABS: BILIRUBIN Negative (Negative); BLOOD 3+ (Negative); CLARITY Cloudy (Clear); COLOR Yellow (Yellow); GLUCOSE Negative (Negative); KETONE Negative (Negative); LEUKO ESTERASE 1+ (Negative); NITRITE Negative (Negative); PH 5.5 (4.5-8.0); UROBILINOGEN 0.2 E.U./dl (0.0-1.0)
[2023-06-24 18:47] LABS: BACTERIA 2+; CALCIUM OXALATE CRYSTALS Trace; RBC TNTC rbc/hpf (0-2)
== END | disposition home or self-care (01) ==
LOC: LAB 17:21
PROVIDERS: ATTEND Nurse Practitioner Family
DX: N39.0 Urinary tract infection, site not specified (principal)

== ENCOUNTER → 2023-07-29 | Outpatient (CLI) | payer MEDICARE ==
[2023-07-29 13:15] LABS: BILIRUBIN Negative (Negative); BLOOD 3+ (Negative); CLARITY Cloudy (Clear); COLOR Yellow (Yellow); GLUCOSE Negative (Negative); KETONE Negative (Negative); LEUKO ESTERASE 3+ (Negative); NITRITE Positive (Negative); SPECIFIC GRAVITY 1.015 (1.001-1.030); UROBILINOGEN 0.2 E.U./dl (0.0-1.0)
[2023-07-29 13:18] LABS: PH 8.5 (4.5-8.0)
[2023-07-29 14:11] LABS: BACTERIA 3+; CALCIUM OXALATE CRYSTALS 2+
[2023-07-29 14:12] LABS: EPITHELIAL CELLS 21-30; WBC 41-50 wbc/hpf (0-5)
== END | disposition home or self-care (01) ==
LOC: LAB 12:42
PROVIDERS: ATTEND Nurse Practitioner Family
DX: N39.0 Urinary tract infection, site not specified (principal)

== ENCOUNTER → 2023-09-13 | Outpatient (CLI) | payer MEDICARE | LOC: LAB 16:51 | PROVIDERS: ATTEND Internal Medicine | DX: R30.0 Dysuria (principal); N39.0 Urinary tract infection, site not specified ==